=== PATIENT | male | born 1950 | race Caucasian/White ===

== ENCOUNTER 2017-04-19 12:58 | Emergency (ER) | payer MEDICARE ==
[2017-04-19 13:54] LABS: #Eosinphils 0.1 thou/uL (0.0-0.7); #Monocytes 0.8 thou/uL (0.11-0.59); #Neutrophils 11.8 thou/uL (1.40-6.50); %Basophils 0.3 % (0.0-1.0); %Eosinophils 0.4 % (0.0-10.0); %Lymphocytes 13.6 % (21.0-51.0); %Monocytes 5.2 % (0.0-10.0); %Neutrophils 80.5 % (42.0-75.0); Mean Corpuscular HGB CONC 33.2 g/dL (32.0-36.0); Mean Corpuscular Hemoglobin 30.1 pg (27.0-31.0); Mean Corpuscular Volume 90.8 fl (80.0-94.0); Mean Platelet Volume 5.8 fL (7.4-10.4); Platelet Count 467 thou/uL (130-400); RBC Distribution Width 12.5 % (11.5-14.5); Red Blood Cell (RBC) Count 3.98 mill/uL (4.70-6.10); White Blood Cell (WBC) Count 14.6 thou/uL (4.8-10.8)
[2017-04-19 14:19] LABS: ALT (SGPT) 28 U/L (8-55); AST (SGOT) 21 U/L (5-34); Albumin 3.9 g/dL (3.4-4.8); Alkaline Phosphatase 158 U/L (40-150); Anion Gap 14 mmol/L (10-20); BUN (Urea Nitrogen) 15 mg/dL (8.4-25.7); Bilirubin, Total 0.5 mg/dL (0.2-1.2); Calc. Creatinine Clearance 0 mL/min (70-130); Calcium 9.7 mg/dL (7.8-10.44); Carbon Dioxide 21 mmol/L (23-31); Chloride 101 mmol/L (98-107); Estimated GFR-MDRD Greater than 90; Globulin 3.7 g/dL (2.4-3.5); Glucose 142 mg/dL (80-115); Protein, Total 7.6 g/dL (5.8-8.1); Sodium 132 mmol/L (136-145)
[2017-04-19] MEDS ORDERED: Lidocaine 2% Jelly 5 ML TUBE ONE (15:26)
[2017-04-19] MEDS ORDERED: Bacitracin Zinc 1 Packet ONE (17:37)
[2017-04-19] MEDS ORDERED: Morphine 2 MG/ML SYRINGE ONE (18:29)
[2017-04-19] MEDS ORDERED: Ondansetron HCl/PF 4 MG/2 ML Vial ONE (18:29)
[2017-04-19 19:59] LABS: Bilirubin Large (Negative); Blood, Urine Large (Negative); Clarity CLOUDY (Clear); Glucose, Urine (Dipstick) Negative (Negative); Leukocyte Large (Negative); Nitrite Positive (Negative); Protein, Urine (Dipstick) 300 mg/dL (Neg-Trace); Specific Gravity, Urine 1.018 (1.002-1.036)
[2017-04-19 20:02] LABS: Bacteria/HPF None Seen HPF (None Seen); Hyaline Casts/LPF 0-3 HYALINE CAST LPF (0-3 Hyaline); RBC/HPF GREATER THAN 50-TNTC HPF (0-3); Squamous Epithelial None Seen HPF (0-3); WBC/HPF None Seen HPF (0-3)
--- NOTE | 2017-04-19 21:40 | CON ---
DATE OF CONSULTATION: 04/19/2017 HISTORY OF PRESENT ILLNESS: This is a 66-year-old white male who was asked to see by one of the ER isa salvador today because of the gross hematuria and inability to replace the catheter after the patien t had inadvertently pulled it out at home. I have got most of his history from his who is dixon gifford with him at the bedside. He was admitted at [facility]. Recently, he was falling at home quite frequently and I believe, he also may have had a urinary tract infection. He went fro m there to [facility], which I believe is a rehab facility and he was actually there until yesterday . 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 He was not draining, there is blood in it and blood around it. They called [facility] nurse who came in, took it out, and then he had a lot of blood come out of the penis af ter that and they sent him to the emergency room here. The emergency room nurses tried to place a Fo govind catheter, but were unsuccessful, so they asked me to come in to place the catheter. The patient has had some gross microscopic hematuria off and on for the last couple of months and he has actually been evaluated at the [facility] for this and it sounds like according to the that he may have had a CAT scan already done and he is supposed to be going to [place] tomorrow for an MRI, which I am not sure he will be able to go to because of his visit today and also because of the being his sole provider to drive and she has concerns about driving that far. It is unclear as to exactly why the MRI was going to be done or how far into the evaluation for blood in his urine, but he has vi sit set up in [place]. I have reviewed his records here, he has had numerous urine cultures that show ed no growth, 6 of them dating back to 11/2012. On the 3rd of this month that we did have an MRSA in the urine and I believe this was probably done through [facility], it was actually from the penis, so it was probably some urethritis related to the catheter being in and he has been on Bactrim for th at and still is. Today, his white count was mildly elevated at 14.6, his hemoglobin was 12, which is actually fine, looking back at his hemoglobins over the last 8 days, it was as low as 8.9, so 12 loo ks pretty good for him. His platelet count is normal. His creatinine is 0.62, which is stable over the last few days. His last urinalysis was done in the first of this month. I would assume, there w as a catheter in at that time showed greater than 50 red cells, 21-50 white cells, 1+ bacteria, and t hen he had another urinalysis done on 04/04/2017, I am not sure if he had a catheter at that time or not, but that showed 11-20 red cells, no bacteria, 4-6 white cells, and had urinalysis done on 2016 of this past year that was completely clear. The reports no history of prostate cancer or prostate surgery. He is not on any blood thinners apart from a baby aspirin and occasional Aleve. PAST MEDICAL HISTORY: Includes Parkinson's disease and he has developed incontinence, which is proba kayla somewhat related to Parkinson's disease as he is very slow to move around and has probably balanc e issues related to it. His exam is abdomen is obese, but nontender. The bladder is not grossly distended. He is not circum cised. There is no phimosis. There are no lesions. There is blood at the meatus. The testicles ar e descended without mass or tenderness. The rectal exam was not done, but there is no perineal or sc rotal hematoma. I went ahead and sterilely prepped and draped him with Betadine and placed 2% Xyloca ine jelly topically per urethra and passed a 20-Turkish coude tip catheter that went fairly easily int o the bladder. We then placed 15 mL in the balloon and hand irrigated with about a liter of sterile water and got him completely free of clots and completely clear. He is still oozing some blood aroun d the catheter and probably we will do this for a few days because of pulling the catheter out, the b alloon inflated, but looks like his urine is clear. I have recommended that we continue on his Bactr im because of the MRSA that was noted on the 1 has some more though still. We will need to leave thi s catheter in for a few days, it is unclear as to how long this catheter was meant to stay in and if there has been any evaluation further as to who will change it out with whether home health will work . I would hope that whatever doctors or urologists have been caring for him to make this disposition regarding him. I talked with the ER physician that has been seeing him indicating that from Urology standpoint, he was certainly would be safe to go home; however, he is 66-year-old, he does have Park inson's. He is unstable with his gait imbalance. He has been home only for a short period of time, less than 24 hours and already fallen twice at home, one time pulling his catheter out in the process , so the question comes up is whether or not he is actually safe to go home, so the emergency room ph ysician is going to make that decision and talked with the and they will decide whether he would be admitted or whether he would go back to [facility] or what would be the best disposition for him . If further urologic care is needed, I am happy to help provide that.
== END 2017-04-19 20:28 | disposition home or self-care (01) ==
LOC: ERS 12:58
DX: T83.098A Other mechanical complication of other urinary catheter, initial encounter (principal); R31.9 Hematuria, unspecified; E11.9 Type 2 diabetes mellitus without complications
CPT/HCPCS: 36415; 36416; 51702; 80053; 81003; 81015; 85025; 87086; 96374; 96375; J0696; J2270; J2405

== ENCOUNTER 2018-01-12 00:01 | Inpatient (IN) | payer MEDICARE ==
[2018-01-12 00:30] LABS: #Basophils 0.1 thou/uL (0.0-0.2); #Eosinphils 0.3 thou/uL (0.0-0.7); #Lymphocytes 1.7 thou/uL (1.20-3.40); #Monocytes 0.3 thou/uL (0.11-0.59); #Neutrophils 3.8 thou/uL (1.40-6.50); %Basophils 0.9 % (0.0-1.0); %Eosinophils 4.5 % (0.0-10.0); %Lymphocytes 28.2 % (21.0-51.0); %Monocytes 5.1 % (0.0-10.0); %Neutrophils 61.3 % (42.0-75.0); Hemoglobin 10.3 g/dL (14.0-18.0); Mean Corpuscular HGB CONC 34.4 g/dL (32.0-36.0); Mean Corpuscular Hemoglobin 31.3 pg (27.0-31.0); Mean Corpuscular Volume 90.9 fL (78.0-98.0); Mean Platelet Volume 6.5 fL (7.4-10.4); Platelet Count 177 thou/uL (130-400); RBC Distribution Width 12.3 % (11.5-14.5); Red Blood Cell (RBC) Count 3.31 mill/uL (4.70-6.10); White Blood Cell (WBC) Count 6.1 thou/uL (4.8-10.8)
[2018-01-12 00:36] LABS: INR-International Normal Ratio 1.1; Prothrombin Time 14.4 SEC (12.0-14.7)
[2018-01-12 00:43] LABS: ALT (SGPT) 10 U/L (8-55); AST (SGOT) 10 U/L (5-34); Albumin 3.2 g/dL (3.4-4.8); Alkaline Phosphatase 53 U/L (40-150); Anion Gap 9 mmol/L (10-20); BUN (Urea Nitrogen) 22 mg/dL (8.4-25.7); Bilirubin, Total 0.3 mg/dL (0.2-1.2); CK (CPK) 38 U/L (30-200); Calc. Creatinine Clearance 0 mL/min (70-130); Calcium 8.8 mg/dL (7.8-10.44); Carbon Dioxide 25 mmol/L (23-31); Chloride 107 mmol/L (98-107); Estimated GFR-MDRD Greater than 90; Globulin 2.1 g/dL (2.4-3.5); Glucose 125 mg/dL (80-115); Potassium 3.6 mmol/L (3.5-5.1); Protein, Total 5.3 g/dL (5.8-8.1); Sodium 137 mmol/L (136-145)
[2018-01-12 00:46] LABS: CKMB 0.8 ng/mL (0-6.6); Troponin I 0.043 ng/mL (< 0.028)
[2018-01-12 00:50] LABS: Acetaminophen Less than 6.0 mcg/mL (10.0-30.0); Alcohol Less than 10 mg/dL (Less than 10); Lipase 27 U/L (8-78); Salicylate Less than 8.0 mg/dL (15.0-30.0)
[2018-01-12 03:53] LABS: Troponin I 0.049 ng/mL (< 0.028)
[2018-01-12 03:56] LABS: Bilirubin Negative (Negative); Blood, Urine Negative (Negative); Clarity CLOUDY (Clear); Glucose, Urine (Dipstick) Negative (Negative); Leukocyte Negative (Negative); Nitrite Negative (Negative); Protein, Urine (Dipstick) Negative (Neg-Trace); Specific Gravity, Urine 1.023 (1.002-1.036); Urobilinogen 0.2 mg/dL (0.2-1.0)
[2018-01-12 04:14] LABS: Amphetamine Not Detected (NotDetected); Benzodiazepine Screen Not Detected (NotDetected); Cocaine Metabolite Screen Not Detected (NotDetected); Medtox Reader # READER 4; Methamphetamine Not Detected (NotDetected); Opiate Screen Not Detected (NotDetected); Phencyclidine (PCP) Not Detected (NotDetected); THC/Cannabinoid Screen Not Detected (NotDetected)
[2018-01-12 04:15] LABS: Barbiturates Screen Not Detected (NotDetected); Medtox Control Line Valid? VALID (VALID); Methadone Not Detected (NotDetected); Oxycodone Screen Not Detected (NotDetected); Tricyclic Screen Detected (NotDetected)
[2018-01-12 04:34] LABS: CKMB 1.1 ng/mL (0-6.6)
--- NOTE | 2018-01-12 08:47 | RAD ---
AP VIEW CHEST: HISTORY: Altered mental status. COMPARISON: Comparison is made to previous exam from 04/06/2017. FINDINGS: AP view chest demonstrates cardiomegaly seen. There is some blunting of the left costophrenic angle compatible with a tiny left-sided effusion or s carring. Pulmonary vascular congestion is seen. No acute intrathoracic disease is seen. Old healed fracture is seen in the right mid 7th rib. IMPRESSION: Pulmonary vascular congestion and cardiomegaly. No acute intrathoracic abnormality seen. POS: [facility]
--- NOTE | 2018-01-12 08:48 | CT ---
PRELIMINARY REPORT/[facility]/EMERGENTY AFTER-HOURS PROCEDURE CT Head Without Contrast EXAM DATE/TIME: 01/12/2018 12:34 AM CLINICAL HISTORY: 67 years old, male; Signs and symptoms; Altered mental status/memory loss; Age related cognitive decl ine; Patient HX: M67 reports to ed via ems for altered mental status. Ems reports patient presented w ith initial gcs 14 with slurred speech and left side facial droop. Ems reports intial BP was 78/40. Ems established a io and administered 2 l ns, pressure went to 110/65. Ems reports on arrival to ed patient began to having snoring respirations and gcs went to 9. Ems reports stated brandon saucedo is speaking fluently in full sentences. TECHNIQUE: Axial computed tomography images of the head/brain without contrast. COMPARISON: No relevant prior studies available. FINDINGS: Tubes, catheters and devices: Nasotracheal tube partially visualized. Brain: Scattered areas of hypoattenuation, likely chronic small vessel ischemic change, demyelination , or gliosis. No mass, hemorrhage, or acute infarction. Ventricles: Incidental note of cavum septa pellucida and cavum septum vergae. Bones/joints: Normal. Sinuses: Minimal ethmoid sinus disease. Mastoid air cells: Normal as visualized. Soft tissues: Normal. Vasculature: Atherosclerotic vascular calcifications. Atherosclerotic vascular calcifications. IMPRESSION: No acute intracranial abnormality. Thank you for allowing us to participate in the care of your patient. Dictated and Authenticated by: Daquan Zavala MD 01/12/2018 12:54 AM Central Time ([place] & [place]) FINAL REPORT HEAD CT WITHOUT CONTRAST: Date: 01/12/18 COMPARISON: 04/06/17. HISTORY: Altered mental status. FINDINGS: This report is in agreement with the preliminary report by Jonny. No acute intracranial process. Stabl e white matter hypodensities due to chronic small vessel ischemic change. Cavum septum pellucidum and cavum vergae are noted. POS: [facility]
[2018-01-12] MEDS ORDERED: Ondansetron ODT 4 MG TAB SL PRN (08:51)
[2018-01-12] MEDS ORDERED: Ondansetron PF 4 MG/2 ML Vial IVP PRN ×2 (08:51→10:04)
[2018-01-12] MEDS ORDERED: Acetaminophen 325 MG TAB PO PRN ×2 (08:51→10:04)
[2018-01-12] MEDS ORDERED: Sodium Chloride 0.9% 1,000 ML IV SCH (09:00)
--- NOTE | 2018-01-12 09:12 | CT ---
PRELIMINARY REPORT/[facility]/EMERGENTY AFTER-HOURS PROCEDURE CT Angiography Neck With Intravenous Contrast EXAM DATE/TIME: 01/12/2018 1:50 AM CLINICAL HISTORY: 67 years old, male; Signs and symptoms; Speech disturbance; Slurred speech; Patient HX: M67 reports t o ed via ems for altered mental status. Ems reports patient presented with initial gcs 14 with slurre d speech and left side facial droop. Ems reports intial BP was 78/40. Ems established a io and administered 2 l ns, pressure went to 110/65. Ems reports on arrival to ed patient began to having sn oring respirations and gcs went to 9. Ems reports stated baseline is speaking fluently in full s entences. TECHNIQUE: Axial computed tomographic angiography images of the neck with intravenous contrast using CT angiogra phy protocol. MIP reconstructed images were created and reviewed. COMPARISON: No relevant prior studies available. FINDINGS: VASCULATURE: Right common carotid artery: Normal. No significant stenosis. No dissection or occlusion. Right internal carotid artery: Mild atherosclerotic disease of the proximal right internal carotid ar jeremias, causing less than 50% luminal narrowing. Right external carotid artery: Normal. No occlusion or significant stenosis. Right vertebral artery: Normal. No significant stenosis. No dissection or occlusion. Left common carotid artery: Normal. No significant stenosis. No dissection or occlusion. Left internal carotid artery: Mild atherosclerotic disease of the proximal left internal carotid amelia ry, causing less than 50% luminal narrowing. Left external carotid artery: Normal. No occlusion or significant stenosis. Left vertebral artery: Mild atherosclerotic disease of the proximal and distal aspects of the left ve rtebral artery, causing less than 50% luminal narrowing. Subclavian arteries: Atherosclerotic disease of the proximal left subclavian artery, without signific ant luminal narrowing or occlusion. NECK: Trachea: Evidence of tracheobronchomalacia. Bones/joints: No acute fracture. Soft tissues: Normal. No significant soft tissue swelling. Lung apices: Scattered atelectasis and/or scarring within the visualized lung apices. IMPRESSION: No acute abnormality. COMMENT: Reference per NASCET criteria for degree of stenosis: Mild: <50% stenosis. Moderate: 50-69% stenosis. Severe: 70-94% stenosis. Near occlusion: 95-99% stenosis. Thank you for allowing us to participate in the care of your patient. Dictated and Authenticated by: Daquan Zavala MD 01/12/2018 2:33 AM Central Time ([place] & [place] Edu[place]) FINAL REPORT CT ANGIOGRAM OF THE HEAD CT ANGIOGRAM OF THE NECK: HISTORY: Speech disturbance. Slurred speech. COMPARISON: None. TECHNIQUE: CT angiogram of the head and neck are performed in the axial plane. Three-dimensional reformatted im ages are submitted for interpretation. FINDINGS: CT ANGIO HEAD: Bilateral ocular lenses are appropriately located. Both globes are intact. Retrobulbar fat is prese rved. Symmetric attenuation of the optic nerves and ocular rectus muscles. The aerodigestive tract is patent. No mucosal abnormality. Midline fatty raphae of the tongue is pr eserved. Epiglottis has a normal caliber. Preepiglottic fat is preserved. Symmetric attenuation of the soft tissues of the neck. There is no evidence of lymphadenopathy. Cervical spine vertebral body height is maintained. There is no fracture. There is symmetric enhancement and luminal diameter of the intracranial internal carotid arteries. T here is atherosclerosis involving both cavernous segments without high-grade stenosis or narrowing. ANTERIOR CIRCULATION: Both M1 segments have symmetric enhancement and luminal diameter. The left A1 segment is diminutive and likely representing a congenital variant. Both AP segments are patent and unremarkable. Posterior circulation demonstrates atherosclerosis involving the left vertebral artery, intracraniall y. There is no significant stenosis. The basilar artery is patent with appropriate enhancement in l uminal diameter. Both P1 segments and symmetric enhancement of luminal diameter. CT ANGIOGRAM OF THE NECK: This report is in agreement with the preliminary report by [facility]. There is no evidence of hemodynamica lly significant stenosis, based upon NASCET criteria. POS: [facility]
[2018-01-12] MEDS ORDERED: Sodium Chloride 0.65% Nasal 44 ML BOT EA NARE PRN (10:04)
[2018-01-12] MEDS ORDERED: Bisacodyl 5 MG TAB PO PRN (10:04)
[2018-01-12] MEDS ORDERED: Senokot S 8.6-50 MG TAB PO PRN (10:04)
[2018-01-12] MEDS ORDERED: Eucerin (Mineral Oil/Petrolatum,White) 30 gm Jar TOP PRN (10:04)
[2018-01-12] MEDS ORDERED: Cepastat Lozenges 1 LOZ PO PRN (10:04)
[2018-01-12] MEDS ORDERED: Artificial Tear Sol 15 ML BOT EA EYE PRN (10:04)
[2018-01-12] MEDS ORDERED: Bisacodyl 10 MG SUPP PR PRN (10:04)
[2018-01-12] MEDS ORDERED: hydrALAZINE 20 MG/ML VIAL SLOW IVP PRN (10:04)
[2018-01-12] MEDS ORDERED: Metoclopramide HCl 10 MG/2 ML VIAL IVP PRN (10:04)
[2018-01-12] MEDS ORDERED: Loratadine 10 MG TAB PO PRN (10:04)
[2018-01-12] MEDS ORDERED: Diabetic Tussin 200 MG/10 ML UDCUP PO PRN (10:04)
[2018-01-12] MEDS ORDERED: HYDROcodone/Acetaminophen 5/325 mg Tablet PO PRN (10:04)
[2018-01-12] MEDS ORDERED: Calcium Carbonate 500 MG ChewTAB PO PRN (10:04)
[2018-01-12] MEDS ORDERED: Loperamide HCl 2 MG CAP PO PRN (10:04)
[2018-01-12] MEDS ORDERED: Ondansetron ODT 4 MG TAB PO PRN (10:04)
[2018-01-12] MEDS ORDERED: Dextrose 5% in Water 1,000 ML IV PRN (10:05)
[2018-01-12] MEDS ORDERED: HumaLOG 300 UNITS/3 ML VIAL SC PRN ×2 (10:05)
[2018-01-12] MEDS ORDERED: Dextrose 50% Abboject 50 ML SYRINGE SLOW IVP PRN (10:05)
[2018-01-12] MEDS ORDERED: Famotidine 20 MG TAB PO SCH ×2 (10:30→21:00)
[2018-01-12] MEDS ORDERED: Aspirin 325 MG TAB PO SCH (10:30)
[2018-01-12] MEDS ORDERED: Enoxaparin Sodium 40 MG/0.4 ML SYRINGE SC SCH (10:30)
--- NOTE | 2018-01-12 11:14 | HP ---
PRIMARY CARE PHYSICIAN: Dr. Elizabeth Paul at [facility]. REASON FOR ADMISSION: Acute altered mental status, stroke-like symptoms, hypotension. HISTORY OF PRESENT ILLNESS: This is a 67-year-old male, who has underlying history of Parkinson disease and dementia. Yesterday around 7 or 8 p.m., the patient's was struggling to make him go to bed and the patient was not able to get to the bed. The patient's called neighbors and they were not able to successfully put him on bed and that is why the patient's called paramedics. At that time, paramedics noticed that his left side of facial was drooping. He was having slurred speech. Based on their assessment, initial Jan Coma Scale of 14, they suspected stroke. They monitored blood pressure and his blood pressure was 78/40. The patient was given 2 L fluid. IV access was obtained and his blood pressure improved to 110/65. As per paramedics, when they were bringing him here in the emergency room, at that time he was having snoring respiration. When he came to the ER, he was up to his baseline, but he appeared more confused to his . Per the patient's , the patient did not have any constipation, diarrhea, melena, or hematochezia. He did not have any fever, chills, or flu-like illness. He did not have any UTI symptoms. She did not notice complain of headache, chest pain , or palpitation. REVIEW OF SYSTEMS: All review of systems tried to review with the patient, but unable to review and not reliable because of the patient's history of Parkinson disease with dementia. PAST MEDICAL HISTORY: Parkinson disease; COPD; diabetes, type 2; hypertension; and dementia. PAST SURGICAL HISTORY: Cholecystectomy. PAST PSYCHIATRIC HISTORY: Posttraumatic stress disorder. SOCIAL HISTORY: The patient is . Lives at home. No history of tobacco, alcohol, or illicit drug abuse. Mostly, he remains in bed, but he is able to get out of bed by himself. He requires assistance with routine activity. FAMILY HISTORY: No family history of coronary artery disease, stroke, or cancer. ALLERGIES: NO KNOWN DRUG ALLERGIES. CURRENT HOME MEDICATIONS: The patient's did not bring any medication and she does not remember the name of medication, so unable to review at this point. We will call primary care physician's office to verify his home medication. PHYSICAL EXAMINATION: VITAL SIGNS: On arrival, blood pressure 101/65, pulse 74, respiratory rate 16, temperature 98.6, and saturation 97% on room air. Weight 100.9 kg. GENERAL: The patient is currently alert, awake, follows simple commands. No obvious acute distress. Appears slightly confused. HEENT: Head, normocephalic and atraumatic. Eyes; pupils round, reactive to light. Extraocular muscle intact. ENT, oropharynx within normal limits. Dry mucous membranes. No oral lesion. No pharyngeal erythema. No exudate. NECK: Supple. No JVD. No thyromegaly. No carotid bruit. No meningeal signs of irritation. LUNGS: Clear to auscultation without any rhonchi or rales. CARDIAC: S1 and S2 regular. No murmur. No gallop. No rub. ABDOMEN: Soft. Bowel sounds present. Nontender. Nondistended. No organomegaly. No mass. No suprapubic tenderness. BACK: Unremarkable. No CVA tenderness. EXTREMITIES: Upper extremities; passive movement of all joints are normal. Lower extremities; passive movement of all joints are normal. No calf tenderness. No edema. Good distal pulsation. SKIN: No skin rash. HEMATOLOGICAL SYSTEM: No lymphadenopathy. PSYCHIATRIC: Normal affect. NEUROLOGIC: At this point, the patient does not have any focal neurological deficit. He has mini-mental status point lower because of dementia, but his speech appears clear. He is moving all 4 limbs. His reflex is symmetrical. He does not have any cerebellar signs. Plantar bilateral flexor. LABORATORY DATA: Significant labs; CT head without contrast did not show any acute abnormality. CT angiography of the neck and head showed carotid atherosclerosis on the right internal carotid artery without any significant problem. CBC; WBC 6.1, hemoglobin 10.3, and platelets 177. INR 1.1. Sodium 137, potassium 3.6, chloride 107, carbon dioxide 25, BUN 22, creatinine 0.78, glucose 125, and calcium 8.8. Lactic acid 0.7. LFT; AST 10, ALT 10, alkaline phosphatase 53, albumin 3.2. CK 38, CK-MB 0.8, troponin 0.043 and 0.049, and then lipase 27. Lactic acid 0.7. Urinalysis normal. Urine drug screen positive for tricyclics. Serum drug screen negative. EKG showing normal sinus rhythm, slight prolonged QT interval. ASSESSMENT AND PLAN: Impression: 1. Altered mental status. The patient had hypotension at home and he was found with stroke-like symptoms by paramedics. Currently, he does not have any focal neurological deficit. His CT brain is negative, and his examination is up to his baseline other than cognitive deficit. He has right carotid atherosclerosis suspected for transient ischemic attack versus lacunar infarct. At this point, the patient does not have any focal neurological deficit. We will keep him in the stroke floor. We will obtain MRI of brain without contrast and echocardiography as a part of workup. We will check lipid profile. We will do neuro check and we will monitor on the stroke floor. PT and OT will be consulted. We will continue aspirin 325 mg p.o. daily. We will verify his home medication, and when blood pressure is appropriate at that point, we will consider starting antihypertensive medication. 2. Parkinson disease. Once we verify the patient's home medication, we will resume Parkinson medication. We will consider PT/OT while in hospital. 3. Hypotension, currently resolved. We will continue IV fluid 100 mL/h. We will hold on antihypertensive medication. We will review medication and adjust medication while in hospital. 4. Normocytic normochromic anemia. We will continue ferrous sulfate 325 mg p.o. daily, folic acid 1 mg p.o. daily, and vitamin B12 1000 mcg p.o. daily. 5. Diabetes, type 2. We will monitor Accu-Chek a.c. at bedtime and cover with insulin sliding scale as per protocol. 6. Dementia. The patient will need supportive care. 7. Deep vein thrombosis prophylaxis, Lovenox 40 mg subcu daily. 8. Gastrointestinal prophylaxis, Pepcid 20 mg p.o. b.i.d. 9. Code status. The patient is a full code. is the surrogate decision maker. 10. Elevated troponin. The patient does not have any chest pain. We will continue aspirin 325 mg p.o. daily. We will check lipid profile and get echocardiography and monitor on telemetry floor. DISPOSITION PLAN: Based on clinical course, plan of care discussed with the patient's at bedside in detail. Job ID: [id number] [facility]
[2018-01-12] MEDS: Sodium Chloride 0.9% 1,000 ML IV SCH ×2 (11:57→21:32)
[2018-01-12] MEDS ORDERED: Iopamidol 370 76% 100 ML VIAL ONE (13:27)
--- NOTE | 2018-01-12 17:46 | MRI ---
MRI OF BRAIN WITHOUT CONTRAST: 01/12/18 INDICATION: Generalized weakness, altered mental status. Reference made to head CT earlier same day. FINDINGS: There is enlargement of the ventricular system. No shift of midline. Patient motion is present degrad ing image quality. No acute territorial infarction. There is multifocal white matter signal abnormali ty indicating moderate to severe chronic ischemic disease of the cerebral white matter. There is pont ine gliosis. The skull base flow voids are not reliably assessed due to the degree of motion. Scatter ed paranasal sinus mucosal thickening is present. IMPRESSION: 1. No acute territorial infarction or mass effect. 2. Ventriculomegaly. 3. Moderate to severe chronic ischemic disease of the cerebral white matter and abdoulaye. POS: [facility]
[2018-01-12 18:52] VITALS: BMI 32.8
[2018-01-13 06:49] LABS: #Eosinphils 0.3 thou/uL (0.0-0.7); #Lymphocytes 1.2 thou/uL (1.20-3.40); #Monocytes 0.3 thou/uL (0.11-0.59); #Neutrophils 3.7 thou/uL (1.40-6.50); %Basophils 0.9 % (0.0-1.0); %Eosinophils 6.2 % (0.0-10.0); %Lymphocytes 21.3 % (21.0-51.0); %Monocytes 5.6 % (0.0-10.0); Hemoglobin 11.1 g/dL (14.0-18.0); Mean Corpuscular HGB CONC 33.9 g/dL (32.0-36.0); Mean Corpuscular Hemoglobin 30.8 pg (27.0-31.0); Mean Corpuscular Volume 90.7 fL (78.0-98.0); Mean Platelet Volume 6.6 fL (7.4-10.4); Platelet Count 178 thou/uL (130-400); RBC Distribution Width 12.1 % (11.5-14.5); Red Blood Cell (RBC) Count 3.62 mill/uL (4.70-6.10); White Blood Cell (WBC) Count 5.6 thou/uL (4.8-10.8)
[2018-01-13] MEDS ORDERED: Docusate 100 MG CAP PO PRN (07:07)
[2018-01-13] MEDS ORDERED: cloNIDine 0.1 MG TAB PO PRN (07:07)
[2018-01-13] MEDS ORDERED: Cyclobenzaprine 10 MG TAB PO PRN (07:07)
[2018-01-13] MEDS ORDERED: PROVENTIL INHALER 6.7 G (200 INHALATIONS) INH PRN (07:07)
[2018-01-13 07:13] LABS: ALT (SGPT) 10 U/L (8-55); AST (SGOT) 13 U/L (5-34); Albumin 3.6 g/dL (3.4-4.8); Alkaline Phosphatase 57 U/L (40-150); Anion Gap 9 mmol/L (10-20); BUN (Urea Nitrogen) 13 mg/dL (8.4-25.7); Bilirubin, Total 0.7 mg/dL (0.2-1.2); Calc. Creatinine Clearance 157 mL/min (70-130); Calcium 9.3 mg/dL (7.8-10.44); Carbon Dioxide 26 mmol/L (23-31); Cardiac Risk 3.6 (Less than 4.5); Chloride 107 mmol/L (98-107); Cholesterol 98 mg/dl (< 200 Desired); Estimated GFR-MDRD Greater than 90; Globulin 2.9 g/dL (2.4-3.5); Glucose 97 mg/dL (80-115); HDL Cholesterol 27 mg/dL (>60 Neg Risk); LDL Cholesterol, Calculated 52 mg/dL; Potassium 3.7 mmol/L (3.5-5.1); Protein, Total 6.5 g/dL (5.8-8.1); Sodium 138 mmol/L (136-145); Triglycerides 94 mg/dL (Less than 150)
[2018-01-13] MEDS ORDERED: Albuterol Sulfate 2.5 mg/3 ml Neb NEB PRN (07:45)
[2018-01-13] MEDS: hydrALAZINE 25 MG TAB PO SCH ×3 (08:51→20:33)
[2018-01-13] MEDS: Fish Oil 1,000 MG CAP PO SCH ×4 (08:51→20:33)
[2018-01-13] MEDS: Folic Acid 1 MG TAB PO SCH (08:51)
[2018-01-13] MEDS: Aspirin 325 MG TAB PO SCH (08:51)
[2018-01-13] MEDS: Carbidopa/Levodopa 25-100 mg Tablet PO SCH ×2 (08:52→20:34)
[2018-01-13] MEDS: FLUoxetine HCl 20 MG CAP PO SCH (08:52)
[2018-01-13] MEDS: Gabapentin 100 MG CAP PO SCH (08:52)
[2018-01-13] MEDS: Multivitamin W/ Minerals 1 TAB PO SCH (08:52)
[2018-01-13] MEDS: Metoprolol Tartrate 25 MG TAB PO SCH (08:53)
[2018-01-13] MEDS: Ferrous Sulfate 325 MG TAB PO SCH (08:54)
[2018-01-13] MEDS: Cyanocobalamin (Vitamin B-12) 1,000 MCG TAB PO SCH (08:54)
[2018-01-13] MEDS: Enoxaparin Sodium 40 MG/0.4 ML SYRINGE SC SCH (08:54)
[2018-01-13] MEDS ORDERED: Ergocalciferol 1.25 MG(50,000 UNITS) CAP PO SCH (09:00)
[2018-01-13] MEDS ORDERED: glipiZIDE 10 MG TAB PO SCH (09:00)
[2018-01-13] MEDS: Stress 600 With Zinc 1 TAB PO SCH (09:36)
[2018-01-13] MEDS: Lisinopril/Hydrochlorothiazide 20 mg/12.5 mg Tablet PO SCH (09:43)
--- NOTE | 2018-01-13 10:17 | PDOC.PN ---
- Subjective Encounter Start Date: 01/13/18 Encounter Start Time: 07:00 Patient seen and examined. No new complaints. No overnight events - Objective Resuscitation Status - Order Detail: 01/12/18 07:03 Resuscitation Status Routine Resuscitation Status: FULL: Full Resuscitation MAR Reviewed: Yes Vital Signs & Weight: Vital Signs (12 hours) Temp Pulse Resp BP BP Pulse Ox 01/13/18 09:43 100 172/82 H 01/13/18 08:51 100 172/82 H 01/13/18 08:49 172/82 H 01/13/18 07:33 98.8 F 71 16 194/105 H 92 L 01/13/18 03:36 98.9 F 75 16 155/85 H 93 L 01/12/18 23:53 98.9 F 73 18 159/84 H 92 L Weight Weight 228 lb 8 oz I&O: 01/12/18 01/13/18 01/14/18 06:59 06:59 06:59 Intake Total 250 Balance 250 Result Diagrams: 01/13/18 06:07 01/13/18 06:07 Additional Labs: Accuchecks 01/13/18 01/12/18 01/12/18 05:26 20:52 10:38 POC Glucose 109 115 H 109 Radiology Reviewed by me: Yes (MRI no acute cva) EKG Reviewed by me: Yes Phys Exam - Physical Examination Constitutional: NAD HEENT: PERRLA, moist MMs, sclera anicteric Neck: no JVD, supple Respiratory: no wheezing, no rales, no rhonchi Cardiovascular: RRR, no significant murmur, no rub Gastrointestinal: soft, non-tender, no distention, positive bowel sounds Musculoskeletal: no edema, pulses present Neurological: non-focal, normal sensation Lymphatic: no nodes Psychiatric: normal affect Skin: no rash, normal turgor Dx/Plan (1) Altered mental status Code(s): R41.82 - ALTERED MENTAL STATUS, UNSPECIFIED Status: Acute (2) Elevated troponin Code(s): R74.8 - ABNORMAL LEVELS OF OTHER SERUM ENZYMES Status: Acute (3) Hypotension Status: Acute (4) Anemia, normocytic normochromic Code(s): D64.9 - ANEMIA, UNSPECIFIED Status: Chronic (5) Dementia Code(s): F03.90 - UNSPECIFIED DEMENTIA WITHOUT BEHAVIORAL DISTURBANCE Status: Chronic (6) Obesity (BMI 30.0-34.9) Code(s): E66.9 - OBESITY, UNSPECIFIED Status: Chronic (7) Parkinson disease Code(s): G20 - PARKINSON'S DISEASE Status: Chronic - Plan cont current plan of care, PT/OT * medication reviewed as below * symptomatic treatment * echo pending result * neurology to see * home medication reconciled * start PT * adjust BP meds. Review of Systems - Review of Systems ENT: negative: Ear Pain, Ear Discharge, Nose Pain, Nose Discharge, Nose Congestion, Mouth Pain, Mouth Swelling, Throat Pain, Throat Swelling, Other Respiratory: negative: Cough, Dry, Shortness of Breath, Hemoptysis, SOB with Excertion, Pleuritic Pain, Sputum, Wheezing Cardiovascular: negative: chest pain, palpitations, orthopnea, paroxysmal nocturnal dyspnea, edema, light headedness, other Gastrointestinal: negative: Nausea, Vomiting, Abdominal Pain, Diarrhea, Constipation, Melena, Hematochezia, Other Genitourinary: negative: Dysuria, Frequency, Incontinence, Hematuria, Retention , Other Musculoskeletal: negative: Neck Pain, Shoulder Pain, Arm Pain, Back Pain, Hand Pain, Leg Pain, Foot Pain, Other Skin: negative: Rash, Lesions, Hermes, Bruising, Other - Medications/Allergies Allergies/Adverse Reactions: Allergies Allergy/AdvReac Type Severity Reaction Status Date / Time No Known Allergies Allergy Verified 01/12/18 20:18 Medications: Current Medications Acetaminophen (Tylenol) 650 mg PO Q4H PRN PRN Reason: Headache/Fever/Mild Pain (1-3) Hydrocodone Bitart/Acetaminophen ([place] 5/325) 1 tab PO Q4H PRN PRN Reason: Moderate Pain (4-6) Albuterol Sulfate (Ventolin) 2.5 mg NEB Q4H PRN PRN Reason: SOB &/or Wheezing Albuterol Sulfate (Proventil Hfa) 2 puff INH Q4H PRN PRN Reason: SOB &/or Wheezing Artificial Tears (Tears Renewed 15ml Bottle) 2 drop EA EYE PRN PRN PRN Reason: Dry Eyes Aspirin (Aspirin) 325 mg PO DAILY [facility] Last Admin: 01/13/18 08:51 Dose: 325 mg Atorvastatin Calcium (Lipitor) 40 mg PO HS [facility] Benztropine Mesylate (Cogentin) 1 mg PO HS [facility] Bisacodyl (Dulcolax) 10 mg PO DAILYPRN PRN PRN Reason: Constipation Bisacodyl (Dulcolax) 10 mg [place] DAILYPRN PRN PRN Reason: Constipation Calcium Carbonate (Tums) 1,000 mg PO Q4H PRN PRN Reason: Heartburn or Indigestion Carbidopa/Levodopa (Sinemet 25-100) 1 tab PO BID [facility] Last Admin: 01/13/18 08:52 Dose: 1 tab Clonidine (Catapres) 0.1 mg PO BIDPRN PRN PRN Reason: SBP Greater Than 180 Cyanocobalamin (Vitamin B-12) 1,000 mcg PO DAILY [facility] Last Admin: 01/13/18 08:54 Dose: 1,000 mcg Cyclobenzaprine HCl (Flexeril) 10 mg PO TIDPRN PRN PRN Reason: Muscle Spasm Dextrose/Water (Dextrose 50%) 25 gm SLOW IVP PRN PRN PRN Reason: Hypoglycemia Docusate Sodium (Colace) 100 mg PO BIDPRN PRN PRN Reason: Constipation Duloxetine HCl (Cymbalta) 20 mg PO DAILY [facility] Last Admin: 01/13/18 08:52 Dose: 20 mg Enoxaparin Sodium (Lovenox) 40 mg SC 0900 [facility] Last Admin: 01/13/18 08:54 Dose: 40 mg Ergocalciferol (Drisdol) 1.25 mg PO Q7DAYS [facility] Last Admin: 01/13/18 09:35 Dose: 1.25 mg Ferrous Sulfate (Feosol) 325 mg PO QAM[facility] Last Admin: 01/13/18 08:54 Dose: 325 mg Fish Oil (Fish Oil) 2,000 mg PO QID [facility] Last Admin: 01/13/18 08:51 Dose: 2,000 mg Fluoxetine HCl (Prozac) 60 mg PO DAILY [facility] Last Admin: 01/13/18 08:52 Dose: 60 mg Folic Acid (Folvite) 1 mg PO DAILY [facility] Last Admin: 01/13/18 08:51 Dose: 1 mg Gabapentin (Neurontin) 100 mg PO QAM [facility] Last Admin: 01/13/18 08:52 Dose: 100 mg Gabapentin (Neurontin) 200 mg PO HS [facility] Glipizide (Glucotrol) 5 mg PO DAILY [facility] Glucagon (Glucagon) 1 mg IM PRN PRN PRN Reason: Hypoglycemia Guaifenesin (Robitussin Sf) 200 mg PO Q4H PRN PRN Reason: Cough Lisinopril/HCTZ (Prinizide 20-12.5) 2 tab PO DAILY [facility] Last Admin: 01/13/18 09:43 Dose: 2 tab Hydralazine HCl (Apresoline) 10 mg SLOW IVP Q4H PRN PRN Reason: SBP > 180 and HR < 70 Hydralazine HCl (Apresoline) 25 mg PO TID [facility] Last Admin: 01/13/18 08:51 Dose: 25 mg Dextrose/Water (D5w) 1,000 mls @ 0 mls/hr IV .Q0M PRN PRN Reason: Hypoglycemia Insulin Human Lispro (Humalog) 0 units SC .MODERATE SLIDING SC PRN PRN Reason: Moderate Correctional Scale Insulin Human Lispro (Humalog) 0 units SC .BEDTIME SLIDING SC PRN PRN Reason: Bedtime Correctional Scale Iron/Minerals/Multivitamins (Theragran M) 1 tab PO DAILY [facility] Last Admin: 01/13/18 08:52 Dose: 1 tab Loperamide HCl (Imodium) 2 mg PO PRN PRN PRN Reason: Diarrhea/Loose Stools Loratadine (Claritin) 10 mg PO DAILYPRN PRN PRN Reason: Sinus Symptoms Metoclopramide HCl (Reglan) 5 mg IVP Q4H PRN PRN Reason: Nausea Metoprolol Tartrate (Lopressor) 12.5 mg PO DAILY [facility] Last Admin: 01/13/18 08:53 Dose: 12.5 mg Mineral Oil/White Petrolatum (Eucerin Cream) 0 gm TOP BIDPRN PRN PRN Reason: Dry Skin Multivitamins/Zinc (Stress 600 With Zinc) 1 tab PO DAILY [facility] Last Admin: 01/13/18 09:36 Dose: 1 tab Ondansetron HCl (Zofran Odt) 4 mg PO Q6H PRN PRN Reason: Nausea/Vomiting Ondansetron HCl (Zofran) 4 mg IVP Q6H PRN PRN Reason: Nausea/Vomiting Pantoprazole Sodium (Protonix) 40 mg PO DAILY [facility] Last Admin: 01/13/18 08:51 Dose: 40 mg Risperidone (Risperidone) 3 mg PO HS [facility] Senna/Docusate Sodium (Senokot S) 2 tab PO BID PRN PRN Reason: Constipation Sodium Chloride ([place] Nasal [place] 0.65%) 0 ml EA NARE QIDPRN PRN PRN Reason: Nasal Congestion Throat Lozenges (Cepastat Lozenges) 1 aurora PO Q2H PRN PRN Reason: Sore Throat Trazodone HCl (Desyrel) 50 mg PO [facility] Venlafaxine HCl (Effexor) 75 mg PO DAILY [facility] Last Admin: 01/13/18 09:35 Dose: 75 mg
[2018-01-13] MEDS: glipiZIDE 10 MG TAB PO SCH (10:41)
[2018-01-13] MEDS ORDERED: Nystatin Cream 15 GM TUBE TOP PRN (16:00)
[2018-01-13] MEDS ORDERED: traZODone HCl 50 MG TAB PO SCH (21:00)
[2018-01-13] MEDS ORDERED: risperiDONE 3 MG TAB PO SCH (21:00)
[2018-01-13] MEDS ORDERED: Benztropine 1 MG TAB PO SCH (21:00)
[2018-01-13] MEDS ORDERED: Atorvastatin Calcium 40 MG TAB PO SCH (21:00)
[2018-01-13] MEDS ORDERED: Gabapentin 100 MG CAP PO SCH (21:00)
[2018-01-14 08:21] VITALS: TEMP 97.9
[2018-01-14] MEDS: hydrALAZINE 25 MG TAB PO SCH (09:08)
[2018-01-14] MEDS: Enoxaparin Sodium 40 MG/0.4 ML SYRINGE SC SCH (09:08)
[2018-01-14] MEDS: Multivitamin W/ Minerals 1 TAB PO SCH (09:09)
[2018-01-14] MEDS: Fish Oil 1,000 MG CAP PO SCH ×2 (09:10→13:24)
[2018-01-14] MEDS: Ferrous Sulfate 325 MG TAB PO SCH (09:10)
[2018-01-14] MEDS: Aspirin 325 MG TAB PO SCH (09:10)
[2018-01-14] MEDS: Stress 600 With Zinc 1 TAB PO SCH (09:10)
[2018-01-14] MEDS: FLUoxetine HCl 20 MG CAP PO SCH (09:10)
[2018-01-14] MEDS: glipiZIDE 10 MG TAB PO SCH (09:11)
[2018-01-14] MEDS: Cyanocobalamin (Vitamin B-12) 1,000 MCG TAB PO SCH (09:11)
[2018-01-14] MEDS: Folic Acid 1 MG TAB PO SCH (09:11)
[2018-01-14] MEDS: Carbidopa/Levodopa 25-100 mg Tablet PO SCH (09:11)
[2018-01-14] MEDS: Metoprolol Tartrate 25 MG TAB PO SCH (09:12)
[2018-01-14] MEDS: Gabapentin 100 MG CAP PO SCH (09:12)
--- NOTE | 2018-01-14 09:27 | PDOC.PN ---
- Subjective Encounter Start Date: 01/14/18 Encounter Start Time: 09:15 Patient seen and examined. No new complaints. No overnight events - Objective Resuscitation Status - Order Detail: 01/12/18 07:03 Resuscitation Status Routine Resuscitation Status: FULL: Full Resuscitation MAR Reviewed: Yes Vital Signs & Weight: Vital Signs (12 hours) Temp Pulse Resp BP Pulse Ox 01/14/18 09:08 60 01/14/18 08:00 97.9 F 60 16 131/73 98 01/14/18 03:40 98.4 F 84 18 132/77 97 01/14/18 00:00 97.7 F 89 18 132/85 93 L Weight Weight 228 lb 8 oz I&O: 01/13/18 01/14/18 01/15/18 06:59 06:59 06:59 Intake Total 250 250 Balance 250 250 Result Diagrams: 01/13/18 06:07 01/13/18 06:07 Additional Labs: Accuchecks 01/14/18 01/13/18 01/13/18 06:03 20:53 16:25 POC Glucose 126 H 132 H 97 01/13/18 10:38 POC Glucose 102 EKG Reviewed by me: Yes Phys Exam - Physical Examination Constitutional: NAD HEENT: PERRLA, moist MMs, sclera anicteric Neck: no JVD, supple Respiratory: no wheezing, no rales, no rhonchi Cardiovascular: RRR, no significant murmur, no rub Gastrointestinal: soft, non-tender, no distention, positive bowel sounds Musculoskeletal: no edema, pulses present Neurological: non-focal, normal sensation Lymphatic: no nodes Psychiatric: normal affect Skin: no rash, normal turgor Dx/Plan (1) Altered mental status Code(s): R41.82 - ALTERED MENTAL STATUS, UNSPECIFIED Status: Resolved (2) Elevated troponin Code(s): R74.8 - ABNORMAL LEVELS OF OTHER SERUM ENZYMES Status: Acute (3) Hypotension Status: Acute (4) Anemia, normocytic normochromic Code(s): D64.9 - ANEMIA, UNSPECIFIED Status: Chronic (5) Dementia Code(s): F03.90 - UNSPECIFIED DEMENTIA WITHOUT BEHAVIORAL DISTURBANCE Status: Chronic (6) Obesity (BMI 30.0-34.9) Code(s): E66.9 - OBESITY, UNSPECIFIED Status: Chronic (7) Parkinson disease Code(s): G20 - PARKINSON'S DISEASE Status: Chronic - Plan cont current plan of care, plan discussed w/ family * medication reviewed as below * symptomatic treatment * see my discharge vikymargie. Review of Systems - Review of Systems ENT: negative: Ear Pain, Ear Discharge, Nose Pain, Nose Discharge, Nose Congestion, Mouth Pain, Mouth Swelling, Throat Pain, Throat Swelling, Other Respiratory: negative: Cough, Dry, Shortness of Breath, Hemoptysis, SOB with Excertion, Pleuritic Pain, Sputum, Wheezing Cardiovascular: negative: chest pain, palpitations, orthopnea, paroxysmal nocturnal dyspnea, edema, light headedness, other Gastrointestinal: negative: Nausea, Vomiting, Abdominal Pain, Diarrhea, Constipation, Melena, Hematochezia, Other Genitourinary: negative: Dysuria, Frequency, Incontinence, Hematuria, Retention , Other Musculoskeletal: negative: Neck Pain, Shoulder Pain, Arm Pain, Back Pain, Hand Pain, Leg Pain, Foot Pain, Other - Medications/Allergies Allergies/Adverse Reactions: Allergies Allergy/AdvReac Type Severity Reaction Status Date / Time No Known Allergies Allergy Verified 01/12/18 20:18 Medications: Current Medications Acetaminophen (Tylenol) 650 mg PO Q4H PRN PRN Reason: Headache/Fever/Mild Pain (1-3) Hydrocodone Bitart/Acetaminophen ([place] 5/325) 1 tab PO Q4H PRN PRN Reason: Moderate Pain (4-6) Albuterol Sulfate (Ventolin) 2.5 mg NEB Q4H PRN PRN Reason: SOB &/or Wheezing Albuterol Sulfate (Proventil Hfa) 2 puff INH Q4H PRN PRN Reason: SOB &/or Wheezing Artificial Tears (Tears Renewed 15ml Bottle) 2 drop EA EYE PRN PRN PRN Reason: Dry Eyes Aspirin (Aspirin) 325 mg PO DAILY [facility] Last Admin: 01/14/18 09:10 Dose: 325 mg Atorvastatin Calcium (Lipitor) 40 mg PO HS [facility] Last Admin: 01/13/18 20:34 Dose: 40 mg Benztropine Mesylate (Cogentin) 1 mg PO HS [facility] Last Admin: 01/13/18 20:35 Dose: 1 mg Bisacodyl (Dulcolax) 10 mg PO DAILYPRN PRN PRN Reason: Constipation Bisacodyl (Dulcolax) 10 mg [place] DAILYPRN PRN PRN Reason: Constipation Calcium Carbonate (Tums) 1,000 mg PO Q4H PRN PRN Reason: Heartburn or Indigestion Carbidopa/Levodopa (Sinemet 25-100) 1 tab PO BID [facility] Last Admin: 01/14/18 09:11 Dose: 1 tab Clonidine (Catapres) 0.1 mg PO BIDPRN PRN PRN Reason: SBP Greater Than 180 Cyanocobalamin (Vitamin B-12) 1,000 mcg PO DAILY [facility] Last Admin: 01/14/18 09:11 Dose: 1,000 mcg Cyclobenzaprine HCl (Flexeril) 10 mg PO TIDPRN PRN PRN Reason: Muscle Spasm Dextrose/Water (Dextrose 50%) 25 gm SLOW IVP PRN PRN PRN Reason: Hypoglycemia Docusate Sodium (Colace) 100 mg PO BIDPRN PRN PRN Reason: Constipation Duloxetine HCl (Cymbalta) 20 mg PO DAILY [facility] Last Admin: 01/14/18 09:11 Dose: 20 mg Enoxaparin Sodium (Lovenox) 40 mg SC 0900 [facility] Last Admin: 01/14/18 09:08 Dose: 40 mg Ergocalciferol (Drisdol) 1.25 mg PO Q7DAYS [facility] Last Admin: 01/13/18 09:35 Dose: 1.25 mg Ferrous Sulfate (Feosol) 325 mg PO QAM[facility] Last Admin: 01/14/18 09:10 Dose: 325 mg Fish Oil (Fish Oil) 2,000 mg PO QID [facility] Last Admin: 01/14/18 09:10 Dose: 2,000 mg Fluoxetine HCl (Prozac) 60 mg PO DAILY [facility] Last Admin: 01/14/18 09:10 Dose: 60 mg Folic Acid (Folvite) 1 mg PO DAILY [facility] Last Admin: 01/14/18 09:11 Dose: 1 mg Gabapentin (Neurontin) 100 mg PO QAM [facility] Last Admin: 01/14/18 09:12 Dose: 100 mg Gabapentin (Neurontin) 200 mg PO HS [facility] Last Admin: 01/13/18 20:34 Dose: 200 mg Glipizide (Glucotrol) 5 mg PO DAILY [facility] Last Admin: 01/14/18 09:11 Dose: 5 mg Glucagon (Glucagon) 1 mg IM PRN PRN PRN Reason: Hypoglycemia Guaifenesin (Robitussin Sf) 200 mg PO Q4H PRN PRN Reason: Cough Lisinopril/HCTZ (Prinizide 20-12.5) 1 tab PO DAILY [facility] Hydralazine HCl (Apresoline) 10 mg SLOW IVP Q4H PRN PRN Reason: SBP > 180 and HR < 70 Dextrose/Water (D5w) 1,000 mls @ 0 mls/hr IV .Q0M PRN PRN Reason: Hypoglycemia Insulin Human Lispro (Humalog) 0 units SC .MODERATE SLIDING SC PRN PRN Reason: Moderate Correctional Scale Insulin Human Lispro (Humalog) 0 units SC .BEDTIME SLIDING SC PRN PRN Reason: Bedtime Correctional Scale Iron/Minerals/Multivitamins (Theragran M) 1 tab PO DAILY [facility] Last Admin: 01/14/18 09:09 Dose: 1 tab Loperamide HCl (Imodium) 2 mg PO PRN PRN PRN Reason: Diarrhea/Loose Stools Loratadine (Claritin) 10 mg PO DAILYPRN PRN PRN Reason: Sinus Symptoms Metoclopramide HCl (Reglan) 5 mg IVP Q4H PRN PRN Reason: Nausea Metoprolol Tartrate (Lopressor) 12.5 mg PO DAILY [facility] Last Admin: 01/14/18 09:12 Dose: 12.5 mg Mineral Oil/White Petrolatum (Eucerin Cream) 0 gm TOP BIDPRN PRN PRN Reason: Dry Skin Multivitamins/Zinc (Stress 600 With Zinc) 1 tab PO DAILY [facility] Last Admin: 01/14/18 09:10 Dose: 1 tab Nystatin (Mycostatin Cream) 0 gm TOP BIDPRN PRN PRN Reason: TO FACE Ondansetron HCl (Zofran Odt) 4 mg PO Q6H PRN PRN Reason: Nausea/Vomiting Ondansetron HCl (Zofran) 4 mg IVP Q6H PRN PRN Reason: Nausea/Vomiting Pantoprazole Sodium (Protonix) 40 mg PO DAILY [facility] Last Admin: 01/14/18 09:12 Dose: 40 mg Risperidone (Risperidone) 3 mg PO HS [facility] Last Admin: 01/13/18 20:35 Dose: 3 mg Senna/Docusate Sodium (Senokot S) 2 tab PO BID PRN PRN Reason: Constipation Sodium Chloride ([place] Nasal [place] 0.65%) 0 ml EA NARE QIDPRN PRN PRN Reason: Nasal Congestion Throat Lozenges (Cepastat Lozenges) 1 aurora PO Q2H PRN PRN Reason: Sore Throat Trazodone HCl (Desyrel) 50 mg PO [facility] Last Admin: 01/13/18 20:34 Dose: 50 mg Venlafaxine HCl (Effexor) 75 mg PO DAILY [facility] Last Admin: 01/14/18 09:09 Dose: 75 mg
[2018-01-14] MEDS ORDERED: Lisinopril/Hydrochlorothiazide 20 mg/12.5 mg Tablet PO SCH (09:30)
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
[2018-01-14] MEDS: Lisinopril/Hydrochlorothiazide 20 mg/12.5 mg Tablet PO SCH (10:33)
[2018-01-14 11:54] VITALS: BP 121/71
[2018-01-15] MEDS ORDERED: Lisinopril/Hydrochlorothiazide 20 mg/12.5 mg Tablet PO SCH (09:00)
== END 2018-01-14 13:40 | disposition home health service (06) | DRG 948 ==
LOC: ERS 00:01 → 2SE 03:19
PROVIDERS: ADMIT Hospitalist; ATTEND Hospitalist
DX: R41.82 Altered mental status, unspecified (principal); I24.8 Other forms of acute ischemic heart disease; I95.1 Orthostatic hypotension; G20 Parkinson's disease; F02.80 Dementia in other diseases classified elsewhere, unspecified severity, without behavioral disturbance, psychotic disturbance, mood disturbance, and anxiety; E66.9 Obesity, unspecified; Z68.32 Body mass index [BMI] 32.0-32.9, adult; J44.9 Chronic obstructive pulmonary disease, unspecified; I10 Essential (primary) hypertension; D64.9 Anemia, unspecified; E11.9 Type 2 diabetes mellitus without complications
CPT/HCPCS: 36415; 36416; 70450; 70496; 70498; 70551; 71045; 80053; 80061; 80306; 80307; 81003; 82550; 82553; 83605; 83690; 84484; 85025; 85610; 85730; 87040; 87086; 93005; 93306; G8978-GP-CK; G8979-GP-CI; G8987-GO-CK; G8988-GO-CJ; J1650

== ENCOUNTER 2018-01-16 06:18 | Observation (INO) | payer MEDICARE ==
[2018-01-16] MEDS ORDERED: Azithromycin 500 MG VIAL ONE ×2 (06:52→07:04)
[2018-01-16] MEDS ORDERED: cefTRIAXone\\ROCEPHIN 2 GM VIAL ONE (06:52)
[2018-01-16 07:30] LABS: #Eosinphils 0.2 thou/uL (0.0-0.7); #Lymphocytes 1.5 thou/uL (1.20-3.40); #Monocytes 0.6 thou/uL (0.11-0.59); #Neutrophils 6.6 thou/uL (1.40-6.50); %Basophils 0.5 % (0.0-1.0); %Eosinophils 2.1 % (0.0-10.0); %Lymphocytes 16.8 % (21.0-51.0); %Monocytes 6.3 % (0.0-10.0); %Neutrophils 74.3 % (42.0-75.0); Hemoglobin 13.2 g/dL (14.0-18.0); Mean Corpuscular HGB CONC 31.3 g/dL (32.0-36.0); Mean Corpuscular Hemoglobin 28.7 pg (27.0-31.0); Mean Corpuscular Volume 91.8 fL (78.0-98.0); Mean Platelet Volume 6.9 fL (7.4-10.4); Platelet Count 222 thou/uL (130-400); RBC Distribution Width 12.3 % (11.5-14.5); White Blood Cell (WBC) Count 8.9 thou/uL (4.8-10.8)
[2018-01-16 07:44] LABS: ALT (SGPT) 17 U/L (8-55); AST (SGOT) 20 U/L (5-34); Albumin 4.4 g/dL (3.4-4.8); Alkaline Phosphatase 65 U/L (40-150); Anion Gap 14 mmol/L (10-20); BUN (Urea Nitrogen) 16 mg/dL (8.4-25.7); Bilirubin, Total 0.5 mg/dL (0.2-1.2); Calc. Creatinine Clearance 0 mL/min (70-130); Calcium 10.3 mg/dL (7.8-10.44); Carbon Dioxide 24 mmol/L (23-31); Chloride 105 mmol/L (98-107); Estimated GFR-MDRD Greater than 90; Globulin 3.5 g/dL (2.4-3.5); Glucose 122 mg/dL (80-115); Potassium 3.8 mmol/L (3.5-5.1); Protein, Total 7.9 g/dL (5.8-8.1); Sodium 139 mmol/L (136-145)
[2018-01-16] MEDS ORDERED: Aspirin 325 MG TAB ONE (08:03)
[2018-01-16 08:07] LABS: CKMB 2.6 ng/mL (0-6.6)
--- NOTE | 2018-01-16 08:12 | CT ---
CT OF THE BRAIN WITHOUT CONTRAST: Date: 01/16/18 COMPARISON: 01/12/18. HISTORY: Fall this morning. Low back pain and head trauma. History of falls and altered mental status. TECHNIQUE: Multiple contiguous axial images were obtained in a CT of the brain without contrast. FINDINGS: This exam is limited secondary to motion artifact. There are scattered hypodensities in the subcortic al and periventricular white matter, likely secondary to small vessel ischemic disease. No large conf luent infarction is seen. There is no evidence of hydrocephalus, intracranial hemorrhage, or extra-ax ial fluid collection. The calvarium and overlying soft tissues are unremarkable. The visualized paranasal sinuses and masto id air cells are well aerated. IMPRESSION: 1. No evidence of acute intracranial abnormality. 2. Small vessel ischemic disease. POS: [facility]
[2018-01-16 09:03] LABS: Bilirubin Negative (Negative); Blood, Urine Negative (Negative); Clarity CLEAR (Clear); Glucose, Urine (Dipstick) Negative (Negative); Leukocyte Negative (Negative); Nitrite Negative (Negative); Protein, Urine (Dipstick) Negative (Neg-Trace); Specific Gravity, Urine 1.017 (1.002-1.036); Urobilinogen 0.2 mg/dL (0.2-1.0); pH, Urine 6.5 (5.0-9.0)
--- NOTE | 2018-01-16 09:40 | RAD ---
RADIOGRAPH LUMBAR SPINE 2 VIEWS: Date: 01/16/18 Time: 0731 hours HISTORY: Low back pain after fall. COMPARISON: 04/03/17. FINDINGS: There are five lumbar-type vertebrae. The previously seen compression fracture of L1 has undergone fu rther severe collapse, with bony retropulsion. There has been interval placement of vertebroplasty ce ment within it. There has been interval development of mild anterior wedge compression fracture deformity of T12, wit h maximum of approximately 40-75% loss of height anteriorly. Together, these two fractures result in gibbus angulation. The rest of the lumbar vertebral body heights are maintained. There is diffuse ost eopenia. IMPRESSION: 1. Interval development of compression fracture of T12, of indeterminate age. It occurred some time after the previous radiograph of 04/03/17. 2. Interval severe further collapse of burst fracture of L1, and interval vertebroplasty treatment o f it, since 04/03/17. 3. The best modality to distinguish old fractures from acute/subacute ones would be noncontrast MRI of the thoracolumbar junction. GINA [] POS: [facility]
[2018-01-16 13:21] LABS: CKMB 2.1 ng/mL (0-6.6)
[2018-01-16] MEDS ORDERED: Bisacodyl 5 MG TAB PO PRN (13:30)
[2018-01-16] MEDS ORDERED: Acetaminophen 325 MG TAB PO PRN (13:30)
[2018-01-16] MEDS ORDERED: cloNIDine 0.1 MG TAB PO PRN (15:59)
[2018-01-16 16:01] VITALS: BMI 31.5
[2018-01-16] MEDS ORDERED: HumaLOG 300 UNITS/3 ML VIAL SC PRN (16:38)
[2018-01-16] MEDS ORDERED: Dextrose 50% Abboject 50 ML SYRINGE SLOW IVP PRN (16:38)
[2018-01-16] MEDS ORDERED: Dextrose 5% in Water 1,000 ML IV PRN (16:38)
[2018-01-16 16:53] LABS: Actual Bicarbonate (HCO3a) 25.4 mEq/L (22-28); Base Excess (BEa) 0.3 mEq/L (-2.0 to +3.0); Calcium, Ionized 1.21 mmol/L (1.12-1.30); Carboxyhemoglobin (COHb) 2.3 gm% (0.0-3.0); Hemoglobin (Hb) 11.3 g/dL (14.0-18.0); O2 Tension (PaO2) 67.4 mmHg (> 80.0); Potassium - ABG Lab 3.51 mmol/L (3.70-5.30); Puncture Site LRA; pH, Arterial 7.39 (7.35-7.45)
[2018-01-16 17:23] LABS: Troponin I 0.051 ng/mL (< 0.028)
[2018-01-16] MEDS: Carbidopa/Levodopa 25-100 mg Tablet PO SCH (20:59)
[2018-01-16] MEDS ORDERED: risperiDONE 3 MG TAB PO SCH (21:00)
[2018-01-16] MEDS ORDERED: Benztropine 1 MG TAB PO SCH (21:00)
[2018-01-16] MEDS ORDERED: Atorvastatin Calcium 40 MG TAB PO SCH (21:00)
--- NOTE | 2018-01-16 23:51 | HP ---
CHIEF COMPLAINT: Fall. HISTORY OF PRESENT ILLNESS: The patient is a 67-year-old male, who recently was discharged from the hospital on 01/14 after a possible diagnosis of TIA or stroke. In his last admission, the patient initially was found to be hypotensive and had some altered mental status, and was brought into the hospital for possible TIA or stroke. He underwent a CT brain on last admission with CTA, no acute abnormalities were noted. 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 The patient was discharged home. I am not exactly clear why the patient was discharged home instead of some rehabilitation, and I do not have any family member around to ask further questions, I have left a message. The patient is unable to provide me any history, given his history of dementia. However, the patient presented to the hospital after multiple falls. Per ER physician, the patient has been falling; however, he felt his last fall was Monday night. The patient normally uses a walker. The patient currently is drowsy, easily arousable; however, unable to provide me any history and there is no family member around. PAST MEDICAL HISTORY: He has a history of Parkinson disease, COPD, diabetes type 2, hypertension, dementia, and emphysema. SOCIAL HISTORY: The patient lives with his . No history of tobacco, alcohol, or illicit drug use. Apparently, he walks with a walker. I am unable to confirm code status in this patient. Again, there is no family member around. REVIEW OF SYSTEMS: Unable to obtain. PAST SURGICAL HISTORY: He has had a cholecystectomy. FAMILY HISTORY: Unable to obtain from the patient, and no family member around. ALLERGIES: HE HAS NO KNOWN DRUG ALLERGIES. MEDICATIONS: This is all received from the list, which includes the followin. Clonidine 0.1 mg b.i.d. 2. Atorvastatin 40 mg at bedtime. 3. Gabapentin 100 mg q.a.m. 4. Fluoxetine 60 mg daily. 5. daily. 6. Lisinopril/hydrochlorothiazide 20/25 one p.o. daily. 7. Metoprolol 12.5 mg daily. 8. Venlafaxine 75 mg daily. 9. Aspirin 81 mg daily. 10. Carbidopa/levodopa 25/100 one p.o. b.i.d. 11. Cogentin 1 mg p.o. at bedtime. 12. Cymbalta 20 mg daily. 13. Protonix 20 mg daily. 14. Risperidone 1.5 mg p.o. at bedtime. PHYSICAL EXAMINATION: VITAL SIGNS: As of the following; the patient is afebrile at 98.2, heart rate is 86, respiratory rate 16, 96% on room air, and blood pressure 177/90. GENERAL: He appears drowsy, easily arousable. Follows commands. CV: S1 and S2 present. No murmurs, rubs, or gallops. LUNGS: Clear to auscultation. No rhonchi or wheezes noted. ABDOMEN: Soft and nontender. Bowel sounds present x2. EXTREMITIES: He has no edema. NEUROLOGIC: He is able to move all 4 extremities. Again, he follows instructions; however, the instruction following is very limited. I am not sure of the patient's baseline. SKIN: No cuts, lesions, or bruises noted. PSYCHIATRIC: Mood is stable right now. The patient is drowsy, but easily arousable. HEENT: The patient appears to be very dehydrated. LABORATORY RESULTS: As of the following; WBC of 8.9, hemoglobin of 13.2, hematocrit of 42.3, platelets of 222. Chemistry; sodium of 139, potassium of 3.8, BUN of 16, creatinine of 0.81, glucose of 122. Troponin was 0.061 and then 0.049. His urine was completely normal. He did not have a chest x-ray, he did have a lumbar spine due to the fall, which indicated that he does have a new T12 compression fracture, and he has an old L1 burst fracture that he underwent a vertebroplasty. ASSESSMENT AND PLAN: The patient is a very pleasant 67-year-old male, who presents to the hospital after a fall. 1. Deconditioning, generalized weakness. At this time, I have to talk with the patient's family member to kind of see why he did not go to rehab during his last visit. We will also check a vitamin B12 and a TSH to make sure that there are no metabolic processes that are causing him to have these fall. We will order physical therapy on this patient. I think he would benefit from inpatient rehab if he is able to follow commands or else, I believe a dementia unit would be more appropriate for this patient. He is on certain medications that could worsen and cause lower extremity weakness, especially Cogentin, which can cause significant weakness in particular musculatures. We will check his medications to see if there are any other offenders that would worsen the patient's symptoms. The patient recently had an MRI of brain. I do not think I need to repeat it. I will speak with the patient's to get a better history to see if there was any other reason that she brought him into the hospital or it was just because of his frequent falls. 2. Hypertension. We will continue his medications. 3. History of diabetes. We will put the patient on sliding scale insulin. 4. Deep venous thrombosis prophylaxis. We will put the patient on subcu heparin. Job ID: [id number]
[2018-01-17 05:34] LABS: Anion Gap 12 mmol/L (10-20); BUN (Urea Nitrogen) 16 mg/dL (8.4-25.7); Calc. Creatinine Clearance 136 mL/min (70-130); Calcium 9.4 mg/dL (7.8-10.44); Carbon Dioxide 26 mmol/L (23-31); Chloride 105 mmol/L (98-107); Estimated GFR-MDRD Greater than 90; Glucose 133 mg/dL (80-115); Potassium 3.4 mmol/L (3.5-5.1); Sodium 140 mmol/L (136-145)
[2018-01-17 05:38] LABS: #Eosinphils 0.3 thou/uL (0.0-0.7); #Monocytes 0.4 thou/uL (0.11-0.59); #Neutrophils 4.6 thou/uL (1.40-6.50); %Basophils 0.5 % (0.0-1.0); %Lymphocytes 16.1 % (21.0-51.0); %Monocytes 6.5 % (0.0-10.0); %Neutrophils 72.9 % (42.0-75.0); Hemoglobin 10.6 g/dL (14.0-18.0); Mean Corpuscular HGB CONC 33.7 g/dL (32.0-36.0); Mean Corpuscular Hemoglobin 30.9 pg (27.0-31.0); Mean Corpuscular Volume 91.6 fL (78.0-98.0); Mean Platelet Volume 6.7 fL (7.4-10.4); Platelet Count 182 thou/uL (130-400); RBC Distribution Width 12.2 % (11.5-14.5); Red Blood Cell (RBC) Count 3.42 mill/uL (4.70-6.10); White Blood Cell (WBC) Count 6.3 thou/uL (4.8-10.8)
[2018-01-17] MEDS ORDERED: Lisinopril/Hydrochlorothiazide 20 mg/12.5 mg Tablet PO SCH (09:00)
[2018-01-17] MEDS ORDERED: FLUoxetine HCl 20 MG CAP PO SCH (09:00)
[2018-01-17] MEDS ORDERED: Gabapentin 100 MG CAP PO SCH (09:00)
[2018-01-17] MEDS ORDERED: Enoxaparin Sodium 40 MG/0.4 ML SYRINGE SC SCH (09:00)
[2018-01-17] MEDS: Carbidopa/Levodopa 25-100 mg Tablet PO SCH (10:01)
[2018-01-17] MEDS ORDERED: Docusate 100 MG CAP PO PRN (12:56)
--- NOTE | 2018-01-17 14:06 | PDOC.PN ---
- Subjective Encounter Start Date: 01/17/18 Encounter Start Time: 09:45 Subjective: pt up in bed on cpap - Objective Resuscitation Status - Order Detail: 01/16/18 13:30 Resuscitation Status Routine Resuscitation Status: FULL: Full Resuscitation Vital Signs & Weight: Vital Signs (12 hours) Temp Pulse Resp BP Pulse Ox 01/17/18 04:00 97.2 F L 93 20 147/70 H 91 L Weight Weight 223 lb 9.6 oz I&O: 01/16/18 01/17/18 01/18/18 06:59 06:59 06:59 Intake Total 1080 Output Total 500 Balance 580 Result Diagrams: 01/17/18 05:04 01/17/18 05:04 Additional Labs: Accuchecks 01/17/18 01/17/18 01/16/18 11:06 06:22 20:31 POC Glucose 123 H 131 H 136 H 01/16/18 17:01 POC Glucose 101 Phys Exam - Physical Examination Neck: no nodes, no JVD, supple, full ROM Respiratory: no wheezing, no rales, no rhonchi, wheezing present, clear to auscultation bilateral Cardiovascular: RRR, no significant murmur, no rub, gallop, irregular Gastrointestinal: soft, non-tender, no distention, positive bowel sounds Musculoskeletal: no edema, pulses present, edema present Neurological: non-focal, normal sensation, moves all 4 limbs Dx/Plan (1) Muscular deconditioning Code(s): R29.898 - OTH SYMPTOMS AND SIGNS INVOLVING THE MUSCULOSKELETAL SYSTEM Status: Acute (2) Obesity (BMI 30.0-34.9) Code(s): E66.9 - OBESITY, UNSPECIFIED Status: Chronic (3) Dementia Code(s): F03.90 - UNSPECIFIED DEMENTIA WITHOUT BEHAVIORAL DISTURBANCE Status: Chronic - Plan will order PT for pt -: will work on pt's placemenet * . Review of Systems - Review of Systems Cardiovascular: negative: chest pain, palpitations, orthopnea, paroxysmal nocturnal dyspnea, edema, light headedness, other Gastrointestinal: negative: Nausea, Vomiting, Abdominal Pain, Diarrhea, Constipation, Melena, Hematochezia, Other Genitourinary: negative: Dysuria, Frequency, Incontinence, Hematuria, Retention , Other Musculoskeletal: negative: Neck Pain, Shoulder Pain, Arm Pain, Back Pain, Hand Pain, Leg Pain, Foot Pain, Other - Medications/Allergies Allergies/Adverse Reactions: Allergies Allergy/AdvReac Type Severity Reaction Status Date / Time No Known Allergies Allergy Verified 01/12/18 20:18 Medications: Current Medications Acetaminophen (Tylenol) 650 mg PO Q4H PRN PRN Reason: Headache/Fever/Mild Pain (1-3) Aspirin (Aspirin Chewable) 81 mg PO DAILY [facility] Last Admin: 01/17/18 10:01 Dose: 81 mg Atorvastatin Calcium (Lipitor) 40 mg PO HS [facility] Last Admin: 01/16/18 20:59 Dose: 40 mg Benztropine Mesylate (Cogentin) 1 mg PO HS [facility] Last Admin: 01/16/18 20:59 Dose: 1 mg Bisacodyl (Dulcolax) 10 mg PO DAILYPRN PRN PRN Reason: Constipation Carbidopa/Levodopa (Sinemet 25-100) 1 tab PO BID [facility] Last Admin: 01/17/18 10:01 Dose: 1 tab Clonidine (Catapres) 0.1 mg PO BID PRN PRN Reason: SBP Greater Than 180 Dextrose/Water (Dextrose 50%) 25 gm SLOW IVP PRN PRN PRN Reason: Hypoglycemia Docusate Sodium (Colace) 100 mg PO BID PRN PRN Reason: Constipation Duloxetine HCl (Cymbalta) 20 mg PO DAILY [facility] Last Admin: 01/17/18 10:02 Dose: 20 mg Enoxaparin Sodium (Lovenox) 40 mg SC 0900 [facility] Last Admin: 01/17/18 10:02 Dose: 40 mg Fluoxetine HCl (Prozac) 60 mg PO DAILY [facility] Last Admin: 01/17/18 10:02 Dose: 60 mg Gabapentin (Neurontin) 100 mg PO QAM [facility] Last Admin: 01/17/18 10:01 Dose: 100 mg Glipizide (Glucotrol) 5 mg PO DAILY-[facility] Glucagon (Glucagon) 1 mg IM PRN PRN PRN Reason: Hypoglycemia Lisinopril/HCTZ (Prinizide 20-12.5) 1 tab PO DAILY [facility] Last Admin: 01/17/18 10:01 Dose: 1 tab Dextrose/Water (D5w) 1,000 mls @ 0 mls/hr IV .Q0M PRN PRN Reason: Hypoglycemia Insulin Human Lispro (Humalog) 0 units SC .MILD SLIDING SCALE PRN PRN Reason: Mild Correctional Scale Pantoprazole Sodium (Protonix) 40 mg PO DAILY [facility] Last Admin: 01/17/18 10:02 Dose: 40 mg Risperidone (Risperidone) 3 mg PO HS [facility] Last Admin: 01/16/18 20:59 Dose: 3 mg Venlafaxine HCl (Effexor) 75 mg PO DAILY [facility] Last Admin: 01/17/18 10:01 Dose: 75 mg
--- NOTE | 2018-01-17 15:53 | EKG ---
Test Reason : Blood Pressure : / mmHG Vent. Rate : 079 BPM Atrial Rate : 079 BPM P-R Int : 232 ms QRS Dur : 106 ms QT Int : 416 ms P-R-T Axes : 065 -14 027 degrees QTc Int : 477 ms Sinus rhythm with 1st degree A-V block Minimal voltage criteria for LVH, may be normal variant Nonspecific T wave abnormality Prolonged QT Abnormal ECG Confirmed by RAY GUTIERREZ ([id number]), digital editor ANA SIMONS ([id number]) on 01/17/2018 3:53:16 PM Referred By: Confirmed By:RAY GUTIERREZ
[2018-01-17 20:12] VITALS: BP 119/67; TEMP 98.4
[2018-01-18] MEDS ORDERED: glipiZIDE 5 MG TAB PO SCH (07:30)
== END 2018-01-17 20:08 ==
LOC: ERS 06:18 → 2NO 12:41
PROVIDERS: ADMIT Internal Medicine; ATTEND Internal Medicine
DX: R53.1 Weakness (principal); I10 Essential (primary) hypertension; E11.9 Type 2 diabetes mellitus without complications; F03.90 Unspecified dementia, unspecified severity, without behavioral disturbance, psychotic disturbance, mood disturbance, and anxiety; J44.9 Chronic obstructive pulmonary disease, unspecified; G20 Parkinson's disease; E66.9 Obesity, unspecified; Z68.32 Body mass index [BMI] 32.0-32.9, adult; Z90.49 Acquired absence of other specified parts of digestive tract; Z79.82 Long term (current) use of aspirin; Z79.84 Long term (current) use of oral hypoglycemic drugs; Z79.899 Other long term (current) drug therapy
CPT/HCPCS: 51701; 51702; 70450; 72100; 80048; 80053; 81003; 82553; 82607; 82805; 82962 ×2; 83880; 84443; 84484 ×2; 85025 ×2; 93005; 94660; 96360; 96361; 96372; 97139; 99285; G0378 ×2; G8978; G8979; 36415; 36416; J0456; J0696; J1650

== ENCOUNTER 2018-01-29 04:00 | Inpatient (IN) | payer MEDICARE ==
[2018-01-29 04:49] LABS: Bilirubin Negative (Negative); Blood, Urine Large (Negative); Clarity CLOUDY (Clear); Glucose, Urine (Dipstick) Negative (Negative); Leukocyte Large (Negative); Nitrite Positive (Negative); Protein, Urine (Dipstick) 30 mg/dL (Neg-Trace); pH, Urine 6.5 (5.0-9.0)
[2018-01-29 04:51] LABS: Bacteria/HPF 2+ HPF (None Seen); Pathc Cast-AUWi Flag 2.34 (0-2.49); RBC/HPF GREATER THAN 50-TNTC HPF (0-3); Squamous Epithelial None Seen HPF (0-3)
[2018-01-29 04:53] LABS: #Eosinphils 0.1 thou/uL (0.0-0.7); #Lymphocytes 1.2 thou/uL (1.20-3.40); #Monocytes 0.6 thou/uL (0.11-0.59); #Neutrophils 5.1 thou/uL (1.40-6.50); %Basophils 0.1 % (0.0-1.0); %Eosinophils 1.1 % (0.0-10.0); %Lymphocytes 16.7 % (21.0-51.0); %Monocytes 8.5 % (0.0-10.0); %Neutrophils 73.7 % (42.0-75.0); Hemoglobin 12.1 g/dL (14.0-18.0); Mean Corpuscular HGB CONC 33.3 g/dL (32.0-36.0); Mean Corpuscular Hemoglobin 30.6 pg (27.0-31.0); Mean Corpuscular Volume 91.8 fL (78.0-98.0); Mean Platelet Volume 6.4 fL (7.4-10.4); Platelet Count 225 thou/uL (130-400); RBC Distribution Width 12.2 % (11.5-14.5); Red Blood Cell (RBC) Count 3.95 mill/uL (4.70-6.10); White Blood Cell (WBC) Count 6.9 thou/uL (4.8-10.8)
[2018-01-29 04:56] LABS: Hyaline Casts/LPF 0-3 HYALINE CAST LPF (0-3 Hyaline)
[2018-01-29 04:59] LABS: Base Excess-Venous 1.5 mmol/L (0 (+/- 2.5)); Bicarbonate (HCO3v) 28.3 mmol/L (22.0-29.0); CO2 Tension (PvCO2) 53.4 mmHg (41.0-51.0); Calcium, Ionized 1.23 mmol/L (1.12-1.32); Hemoglobin - Calc 12.2 g/dL (12.0-18.0); Potassium 3.7 mmol/L (3.4-4.7); T. Carbon Dioxide 29.9 mmol/L (1.0-85.0); pH (Venous) 7.332 (7.35-7.45); vO2 Saturation-calc 70.2 % (94-98)
[2018-01-29 05:17] LABS: ALT (SGPT) Less than 7 U/L (8-55); AST (SGOT) 17 U/L (5-34); Alkaline Phosphatase 64 U/L (40-150); Anion Gap 14 mmol/L (10-20); BUN (Urea Nitrogen) 10 mg/dL (8.4-25.7); Bilirubin, Total 0.3 mg/dL (0.2-1.2); Calc. Creatinine Clearance 0 mL/min (70-130); Calcium 9.5 mg/dL (7.8-10.44); Carbon Dioxide 23 mmol/L (23-31); Chloride 104 mmol/L (98-107); Estimated GFR-MDRD Greater than 90; Globulin 3.7 g/dL (2.4-3.5); Glucose 138 mg/dL (80-115); Potassium 3.9 mmol/L (3.5-5.1); Protein, Total 7.7 g/dL (5.8-8.1); Sodium 137 mmol/L (136-145)
[2018-01-29] MEDS ORDERED: Piperacillin/Tazobactam 3.375 GM VIAL ONE (05:23)
[2018-01-29] MEDS ORDERED: Furosemide 40 MG/4 ML VIAL ONE (06:50)
[2018-01-29] MEDS ORDERED: Nitroglycerin 2% Ointment 1 INCH/1 GM Packet ONE (06:57)
[2018-01-29] MEDS ORDERED: Ondansetron PF 4 MG/2 ML Vial ONE (06:57)
[2018-01-29 06:58] LABS: Actual Bicarbonate (HCO3a) 27.5 mEq/L (22-28); Analyzer IN Cardio ER; Base Excess (BEa) -1.2 mEq/L (-2.0 to +3.0); Calcium, Ionized 1.16 mmol/L (1.12-1.30); Carboxyhemoglobin (COHb) 1.7 gm% (0.0-3.0); Hemoglobin (Hb) 11.6 g/dL (14.0-18.0); O2 Tension (PaO2) 77.3 mmHg (> 80.0); Potassium - ABG Lab 3.72 mmol/L (3.70-5.30)
[2018-01-29 06:59] LABS: ALV-art Gradient 66.985 (0-20); CO2 Tension 67.1 mmHg (35.0-45.0); Puncture Site RBRACH; pH, Arterial 7.23 (7.35-7.45)
[2018-01-29 07:03] LABS: CKMB 1.3 ng/mL (0-6.6)
[2018-01-29] MEDS ORDERED: Fentanyl 100 MCG/2 ML VIAL ONE (07:24)
[2018-01-29] MEDS ORDERED: Midazolam HCl 2 mg/2 ml Vial ONE (07:25)
[2018-01-29] MEDS ORDERED: fentaNYL Citrate/PF 2,000 MCG in Sodium Chloride 0.9% 60 ML IV SCH (07:27)
[2018-01-29] MEDS ORDERED: Propofol 1,000 MG/100 ML VIAL IV ONE (07:28)
[2018-01-29 07:52] LABS: Actual Bicarbonate (HCO3a) 25.7 mEq/L (22-28); Analyzer IN Cardio ER; Base Excess (BEa) -0.2 mEq/L (-2.0 to +3.0); CO2 Tension 47.5 mmHg (35.0-45.0); Calcium, Ionized 1.08 mmol/L (1.12-1.30); Carboxyhemoglobin (COHb) 1.6 gm% (0.0-3.0); Hemoglobin (Hb) 11.1 g/dL (14.0-18.0); Potassium - ABG Lab 3.46 mmol/L (3.70-5.30); pH, Arterial 7.35 (7.35-7.45)
[2018-01-29 07:53] LABS: ALV-art Gradient 156.825 (0-20); Puncture Site RRA
[2018-01-29 08:08] LABS: Troponin I 0.034 ng/mL (< 0.028)
--- NOTE | 2018-01-29 08:28 | RAD ---
PORTABLE CHEST 1 VIEW: Date: 01/29/18 Time: 0723 hours HISTORY: Respiratory failure. FINDINGS/IMPRESSION: Comparison made with earlier exam at 0440 hours. There has been interval placement of an endotracheal tube with tip at the level of the clavicular hea ds. Nasogastric tube has been traced into the stomach. No pneumothoraces are seen. Remainder of exam is stable. POS: [facility]
--- NOTE | 2018-01-29 08:36 | RAD ---
PORTABLE CHEST 1 VIEW: Date: 01/29/18 Time: 0440 hours HISTORY: Dementia, fall. FINDINGS/IMPRESSION: Comparison made with exam of 01/12/18. The patient is rotated. The heart is enlarged. There are patchy infiltrates in the right mid and lowe r lung zones, and the right lower lung zone. No pneumothoraces or large effusions are seen. POS: [facility]
--- NOTE | 2018-01-29 09:28 | CT ---
PRELIMINARY REPORT/[facility]/EMERGENTY AFTER-HOURS PROCEDURE CT Head Without Contrast EXAM DATE/TIME: 01/29/2018 4:54 AM CLINICAL HISTORY: 67 years old, male; Injury or trauma and signs and symptoms; Fall; Initial encounter; Alteration of c onsciousness and syncope and collapse; Patient HX: PT a&0xo, family reports PT fell out of bed at 03: 00. HX of dementia. TECHNIQUE: Axial computed tomography images of the head/brain without contrast COMPARISON: CT Brain WO Con 01/12/2018 12:34 AM FINDINGS: Brain: Enlargement of the extra-axial spaces is consistent with diffuse brain volume loss. There is e vidence of bilateral periventricular white matter disease. Ventricles: Enlargement of the ventricles is consistent with diffuse brain volume loss. Bones/joints: Normal. No fracture. Sinuses: Normal as visualized. No acute sinusitis. Mastoid air cells: Normal as visualized. No mastoid effusion. Soft tissues: Normal. Vasculature: There is evidence of atherosclerosis. IMPRESSION: No acute abnormality identified. No significant interval change. Thank you for allowing us to participate in the care of your patient. Dictated and Authenticated by: Bridger Serrato MD 01/29/2018 5:30 AM Central Time ([place] & [place]) FINAL REPORT CT BRAIN WITHOUT CONTRAST: Date: 01/29/18 FINDINGS/IMPRESSION: I agree with the preliminary report given by Jonny. POS: [facility]
--- NOTE | 2018-01-29 09:29 | CT ---
PRELIMINARY REPORT/[facility]/EMERGENTY AFTER-HOURS PROCEDURE CT Cervical Spine Without Contrast EXAM DATE/TIME: 01/29/2018 4:54 AM CLINICAL HISTORY: 67 years old, male; Injury or trauma; Fall; Initial encounter; Unconscious; Injury date: 01/29/2018; Patient HX: PT a&0xo, family reports PT fell out of bed at 03: 00. HX of dementia. TECHNIQUE: Axial computed tomography images of the cervical spine without intravenous contrast. COMPARISON: CTA Angio Head W WO Con 01/12/2018 1:50 AM FINDINGS: Vertebrae: There is diffuse osteopenia. There are mild degenerative changes at several levels. Discs/Spinal canal/Neural foramina: No spinal stenosis. No neural foraminal narrowing. Soft tissues: Unremarkable. Lungs: Lung apices are normal. Vasculature: There is evidence of atherosclerosis. IMPRESSION: No acute abnormality identified. Thank you for allowing us to participate in the care of your patient. Dictated and Authenticated by: Bridger Serrato MD 01/29/2018 5:24 AM Central Time ([place] & [place]) FINAL REPORT CT CERVICAL SPINE WITH CORONAL AND SAGITTAL REFORMATIONS: Date: 01/29/18 FINDINGS/IMPRESSION: I agree with the preliminary report given by Jonny. POS: [facility]
[2018-01-29] MEDS ORDERED: Dextrose 5% in Water 1,000 ML IV PRN (09:37)
[2018-01-29] MEDS ORDERED: Acetaminophen 325 MG TAB PO PRN (09:37)
[2018-01-29] MEDS ORDERED: Dextrose 50% Abboject 50 ML SYRINGE SLOW IVP PRN (09:37)
[2018-01-29] MEDS ORDERED: CCU Electrolyte Replacement 1 EACH FS ONE (09:37)
[2018-01-29] MEDS ORDERED: HumaLOG 300 UNITS/3 ML VIAL SC PRN (09:37)
[2018-01-29] MEDS ORDERED: Acetaminophen 650 MG Suppository PR PRN (09:37)
[2018-01-29] MEDS ORDERED: Sodium Chloride 0.9% 1,000 ML IV SCH ×2 (09:45→19:45)
[2018-01-29] MEDS ORDERED: Potassium Phosphate 9 MMOL in Sodium Chloride 0.9% 100 ML IVPB PRN (10:02)
[2018-01-29] MEDS ORDERED: Magnesium 2 GM/NS 0.9% 100 ML 2 GM in Premix Bag 1 BAG IVPB PRN (10:02)
[2018-01-29] MEDS ORDERED: Potassium Phosphate 15 MMOL in Sodium Chloride 0.9% 250 ML 250 ML IV PRN (10:02)
[2018-01-29] MEDS ORDERED: CCU ELECTROLYTE REPLACEMENT PROTOCOL FS PRN (10:02)
[2018-01-29] MEDS ORDERED: Potassium Chloride 40 MEQ in Premix Bag 1 BAG IVPB PRN (10:02)
[2018-01-29] MEDS ORDERED: Potassium Chloride 40 MEQ in Sodium Chloride 0.9% 250 ML 250 ML IVPB PRN (10:02)
[2018-01-29] MEDS ORDERED: Potassium Phosphate 12 MMOL in Sodium Chloride 0.9% 250 ML 250 ML IV PRN (10:02)
[2018-01-29] MEDS ORDERED: Potassium Chloride 20 MEQ TAB PO PRN (10:02)
[2018-01-29] MEDS ORDERED: Magnesium Oxide 400 MG TAB PO PRN ×2 (10:02)
--- NOTE | 2018-01-29 11:05 | HP ---
REASON FOR ADMISSION: Acute respiratory failure with hypoxia, COPD exacerbation , acute encephalopathy, severe deconditioning. HISTORY OF PRESENTING ILLNESS: Please note majority of this history is obtained by talking to Dr. Navas, ER physician and the patient's , Ms. Donavan Alvarez over the phone as the patient is intubated at present. The patient apparently was discharged from rehab yesterday. He was still very weak and he could not get up and walk by himself per . Son was helping him out yesterday evening. This morning around 3:00 in the morning, the patient's son went to check on him when he found him on the floor. He was incoherent, did not know where he was. He thought he was in [place]. He was not in his right mind per . They called EMS and the patient was brought here. On arrival, the patient had a GCS of 7 and had difficulty maintaining airway. He was very somnolent and essentially was intubated for airway. He was not conscious enough to be tried on BiPAP. The mentions that he was discharged with an indwelling Douglas catheter. He apparently pulled it out prior to arrival here. Currently, he is sedated and is on the ventilator at present. PAST MEDICAL AND SURGICAL HISTORY: The patient had massive IL with cardiac complications and had extensive surgery done at [facility], this was on July 07 of this year. He apparently had a massive IL and Dr. Velazquez and Dr. Hays were his physicians there. The does not recall what exactly they did except that she knows that he got some stents put in and had extensive surgery with incision placed on the left anterior chest wall. Hypertension, COPD, PTSD, bipolar, and depression all after he came back from [place]. Parkinson disease, psychosis with likely dementia as well, dyslipidemia, prior history of T7-T8 disk/vertebral fracture issue, chronic shoulder pain, hammertoe surgery, dyslipidemia, diabetes mellitus type 2, cholecystectomy. CURRENT MEDICATIONS: The patient was discharged from here on the on albuterol nebulizer q.6 hourly, aspirin 81 mg daily, atorvastatin 40 mg p.o. at bedtime, Cogentin 1 mg p.o. at bedtime, levodopa-carbidopa 25/100 mg twice daily, Flexeril 10 mg three times daily, clonidine 0.1 mg twice daily, Cymbalta 20 mg daily, Colace 100 mg daily, vitamin D2 50,000 units once weekly, fluoxetine 60 mg daily, gabapentin 200 mg p.o. at bedtime and 100 mg p.o. daily, glipizide 5 mg p.o. daily, Lopressor 12.5 mg p.o. daily, Protonix 40 mg p.o. daily, fish oil 2000 mg daily, multivitamin one tablet once daily, Risperdal 3 mg p.o. at bedtime, trazodone 50 mg p.o. at bedtime, venlafaxine 75 mg p.o. daily, lisinopril 20 mg p.o. daily. ALLERGIES: NO KNOWN DRUG ALLERGIES. PERSONAL HISTORY: Quit smoking two years back, was a heavy smoker prior to that and was smoking pack and a half every day for nearly 40 years prior to that. Does not abuse alcohol or drugs. He is to his for nearly 26 years. FAMILY HISTORY: Mother in a motor vehicle accident in her 20s. Father had IL, in his 70s. Code status is full. Power of plant maintenance engineer is his , Ms. Donavan Alvarez. REVIEW OF SYSTEMS: Cannot be obtained as the patient is intubated and is not conscious at present. PHYSICAL EXAMINATION: GENERAL: The patient is a 67-year-old male, who is currently on the ventilator. VITAL SIGNS: Blood pressure 192/86, pulse 90 per minute, respiratory rate 22 per minute on arrival, temperature 99.2 degrees Fahrenheit. Saturating 82% initially on arrival, later 90% on 3 L oxygen. He is currently saturating 100% on ventilator. NECK: Supple. No elevated JVD. EYES: Pupils are reacting to light and it is 3 mm. Oral cavity, the patient is orally intubated at present with endotracheal tube #7.5 up to 23 cm to the incisor. Has an NG tube placed as well as some mild bleeding due to placement of NG tube on the nasal and oral, around the lips. CARDIOVASCULAR SYSTEM: S1 and S2 heard. Regular rhythm. RESPIRATORY SYSTEM: Air entry 1+ bilateral. Scattered wheezes plus bilateral. ABDOMEN: Soft. Bowel sounds heard. No tenderness, rigidity, or guarding. EXTREMITIES: No peripheral edema or calf tenderness. VASCULAR: Both peripheral pulses are 1+ bilateral. No ischemic ulcerations or gangrene. CENTRAL NERVOUS SYSTEM: No gross focal sign seen. The patient apparently was moving all extremities on arrival. PSYCHIATRIC: Cannot be assessed as the patient is not conscious and is sedated on ventilator at present. Please note, the patient has an indwelling Douglas catheter now, which was placed after he pulled out his prior Douglas. There was some dried crust of blood around the urethra. LABORATORY DATA: EKG done shows normal sinus rhythm at 83 beats per minute. There is incomplete RBBB seen. White count of 6.9, hemoglobin and hematocrit of 12 and 36, platelet count 225, with 73% neutrophils, MCV is 91. Blood gas done shows a pH of 7.23, pCO2 of 67, PO2 of 77. Repeat blood gas after intubation shows a pH of 7.35, pCO2 of 47, PO2 of 69, this was on 40% FiO2 on the ventilator. Electrolytes are stable. BUN is 10, creatinine 0.7, serum glucose 138. Liver enzymes within normal limits. Ammonia level is 26. Troponin-I is indeterminate, peaking up to 0.04. CK-MB 1.3. Albumin is 4.0. BNP is 136. CT of brain done shows no acute abnormality. CT cervical spine shows no acute abnormality. Chest x-ray done shows cardiomegaly and mild patchy infiltrates in the right mid and lower lung zones and the right lower lung zone. No pneumothorax or large effusions were seen. CLINICAL IMPRESSION AND PLAN: The patient will be admitted to ICU for acute respiratory failure with hypoxia, chronic obstructive pulmonary disease exacerbation with prior history of heavy smoking, likely polypharmacy with multiple psychotropic and antidepressant medications along with pain medications/muscle relaxants. The patient has had a prior echo done on the 13 of January, which showed EF of 60 % to 65%. There was diastolic dysfunction. No other major valvular abnormalities were seen. He will be on Levaquin, DuoNeb, Solu-Medrol, and gentle hydration with normal saline at 50 mls per hour. We will continue his Risperdal, Neurontin, Cymbalta, Cogentin, aspirin, Lipitor, and duloxetine as before. I have spoken to Dr. Medina for Pulmonary and Critical Care consultation. I have given complete updates to Ms. Donavan Alvarez, his , who is also his power of plant maintenance engineer and she will be coming to visit him shortly. He is a full code. This was confirmed with her. Ms. Donavan Alvarez also mentions that off late, the patient has been having some psychotic issues like suspecting her to be having boyfriends in the house, which she does not and she states she is 74 years old and this is not her usual . He has Parkinson's and PTSD along with bipolar disorder with psychosis versus medication induced. This has been ongoing for a year or so now. She does mention that all his medical issues and hospitalizations were all from early part of this year, prior to which he was apparently healthy. Job ID: [id number] [facility]
[2018-01-29 12:06] LABS: Troponin I 0.038 ng/mL (< 0.028)
[2018-01-29] MEDS ORDERED: VANCOMYCIN IVPB PRN (12:29)
--- NOTE | 2018-01-29 13:04 | CON ---
DATE OF CONSULTATION: 01/29/2018 SERVICE: Pulmonary Medicine REASON FOR CONSULT: Respiratory failure. HISTORY OF PRESENT ILLNESS: The patient is a 67-year-old white male with past medical history significant for some degree of cognitive impairment. Apparently , he was in his usual state of health last night when he went to sleep. He woke up at 3 o'clock in the morning and fell out of bed and onto the floor. His said that he was not breathing correctly at that point. EMS services were contacted and patient was subsequently brought to the emergency department. He cannot provide me any additional elements of the history at this point. His GST was low in the emergency department prompting placement of an endotracheal tube. He has had multiple recent presentations to the hospital for generalized weakness and multiple falls. Apparently, he has some cognitive impairment at baseline. The extent of his dementia is not known to me. PAST MEDICAL HISTORY: 1. Parkinson disease. 2. COPD. 3. Type 2 diabetes mellitus. 4. Hypertension. 5. Dementia. PAST SURGICAL HISTORY: Cholecystectomy. SOCIAL HISTORY: Negative for alcohol, tobacco, or illicit drug use currently. FAMILY HISTORY: Noncontributory. ALLERGIES: NO KNOWN DRUG ALLERGIES. MEDICATIONS: List of his inpatient medications was reviewed within the medical record system. Multiple updates were made at this time. REVIEW OF SYSTEMS: This cannot be obtained as the patient is currently intubated and sedated. PHYSICAL EXAMINATION: VITAL SIGNS: Afebrile. Pulse 97, blood pressure 153/94, respirations 23, and saturation 97% on 37% FiO2 and a PEEP of 7. GENERAL: The patient is intubated. He is sedated. HEENT: Normocephalic and atraumatic. Sclerae white. Conjunctivae pink. Oral mucosa is moist without lesions. LUNGS: Decent air entry with dependent crackles. There is no prolonged expiratory phase or wheezing appreciated. HEART: Normal rate, regular. ABDOMEN: Soft, distended. Bowel sounds are present. No rebound or guarding is appreciated. MUSCULOSKELETAL: No cyanosis or clubbing. I really do not appreciate pitting in the bilateral lower extremities. NEUROLOGIC: Grossly nonfocal. LABORATORY DATA: WBC 6.9, hemoglobin 12.1, platelets 225,000. Neutrophil count is normal. Differential remains stable. INR 1.1. PH 7.35, pCO2 47, pO2 70. This corresponds to saturation of 93%. Troponin is gently up-trending to 0.038, but this is at his baseline. BNP 136, which is high for this patient. Ionized calcium falls within normal limits. Lactate is negative x1. Basic metabolic profile and liver function studies are otherwise unremarkable. Albumin is 4.0. Urinalysis is positive for red blood cells and white blood cells. It is positive for nitrites. Urine drug screen is positive for tricyclic antidepressants, but this was a month ago. Blood cultures x2 and urine culture were previously unremarkable. Repeats are currently pending. IMAGING STUDIES: 1. CT of the C-spine demonstrates no acute cervical abnormality identified. 2. CT of the brain demonstrates no acute intracranial abnormality. 3. Chest x-ray demonstrates endotracheal tube is in good position. Left pleural parenchymal opacification cannot be excluded. Enteric catheter courses in the midline below the level of the diaphragm. Pulmonary vascular congestion is noted. ASSESSMENT: 1. Metabolic encephalopathy. 2. Acute hypoxic respiratory failure. 3. Severe sepsis. 4. Urinary tract infection, suspected. 5. Healthcare-associated pneumonia. 6. Chronic diastolic heart failure with no current overload. DISCUSSION AND PLAN: We will give the patient broad-spectrum antibiotics to cover both lung and pathology. We will give him daily spontaneous breathing trial after a sedation holiday and extubate him once he is able. I will send a sputum and Gram stain from his respiratory secretions to see if we can identify culprit organism. Currently, blood cultures and urine cultures are pending. Pulmonary/Critical Care will continue to follow along while we continue our supportive measures here. Critical care time: 30 minutes. Job ID: [id number] MTDD
[2018-01-29] MEDS: Cefepime 2 GM in Sodium Chloride 0.9% 100 ML IVPB SCH (13:31)
[2018-01-29] MEDS: Sodium Chloride 0.45% 1,000 ML IV SCH (13:33)
[2018-01-29] MEDS ORDERED: Morphine 2 MG/ML SYRINGE SLOW IVP PRN (13:41)
[2018-01-29] MEDS ORDERED: Lorazepam 2 MG/ML VIAL SLOW IVP PRN (13:41)
[2018-01-29] MEDS ORDERED: DISCONTINUE PREVIOUS NARCOTIC PAIN MEDICATIONS AND BENZODIAZEPINES FS SCH (13:41)
[2018-01-29] MEDS ORDERED: Fentanyl BOLUS 250 ML IVPB PRN (13:41)
[2018-01-29] MEDS ORDERED: Propofol BOLUS 1,000 MG/100 ML VIAL IV PRN (13:41)
[2018-01-29] MEDS ORDERED: Morphine 4 MG/ML VIAL SLOW IVP PRN (13:43)
[2018-01-29 14:28] LABS: Troponin I 0.034 ng/mL (< 0.028)
[2018-01-29] MEDS: Vancomycin HCl 1.5 GM in Sodium Chloride 0.9% 250 ML 300 ML IVPB SCH (17:06)
[2018-01-29] MEDS: Gabapentin 100 MG CAP PO SCH (20:24)
[2018-01-29] MEDS: Atorvastatin Calcium 40 MG TAB PO SCH (20:24)
[2018-01-29] MEDS: Famotidine/PF 20 mg/2ml Vial SLOW IVP SCH (20:24)
[2018-01-29] MEDS: Carbidopa/Levodopa 25-100 mg Tablet PO SCH (20:24)
[2018-01-29] MEDS ORDERED: Vancomycin HCl 1 GM in Premix Bag 1 BAG IVPB SCH (21:00)
[2018-01-29] MEDS ORDERED: risperiDONE 3 MG TAB PO SCH (21:00)
[2018-01-29] MEDS ORDERED: Benztropine 1 MG TAB PO SCH (21:00)
[2018-01-30] MEDS: Cefepime 2 GM in Sodium Chloride 0.9% 100 ML IVPB SCH ×2 (00:16→13:30)
[2018-01-30] MEDS: Sodium Chloride 0.45% 1,000 ML IV SCH ×3 (00:39→21:06)
[2018-01-30] MEDS: Vancomycin HCl 1.5 GM in Sodium Chloride 0.9% 250 ML 300 ML IVPB SCH ×2 (04:11→17:14)
[2018-01-30 04:29] LABS: #Lymphocytes 1.4 thou/uL (1.20-3.40); #Monocytes 0.5 thou/uL (0.11-0.59); #Neutrophils 5.3 thou/uL (1.40-6.50); %Basophils 0.2 % (0.0-1.0); %Eosinophils 0.2 % (0.0-10.0); %Monocytes 6.9 % (0.0-10.0); %Neutrophils 73.7 % (42.0-75.0); Hemoglobin 10.9 g/dL (14.0-18.0); Mean Corpuscular HGB CONC 32.7 g/dL (32.0-36.0); Mean Corpuscular Hemoglobin 30.3 pg (27.0-31.0); Mean Corpuscular Volume 92.5 fL (78.0-98.0); Mean Platelet Volume 6.2 fL (7.4-10.4); Platelet Count 208 thou/uL (130-400); RBC Distribution Width 12.3 % (11.5-14.5); White Blood Cell (WBC) Count 7.2 thou/uL (4.8-10.8)
[2018-01-30 04:40] LABS: Anion Gap 13 mmol/L (10-20); BUN (Urea Nitrogen) 14 mg/dL (8.4-25.7); Calc. Creatinine Clearance 128 mL/min (70-130); Calcium 8.6 mg/dL (7.8-10.44); Carbon Dioxide 24 mmol/L (23-31); Chloride 104 mmol/L (98-107); Estimated GFR-MDRD Greater than 90; Glucose 120 mg/dL (80-115); Sodium 137 mmol/L (136-145)
[2018-01-30] MEDS: fentaNYL Citrate/PF 2,000 MCG in Sodium Chloride 0.9% 60 ML IV SCH (06:53)
[2018-01-30 07:10] LABS: Actual Bicarbonate (HCO3a) 28.4 mEq/L (22-28); Base Excess (BEa) 1.5 mEq/L (-2.0 to +3.0); CO2 Tension 56.4 mmHg (35.0-45.0); Calcium, Ionized 1.19 mmol/L (1.12-1.30); Carboxyhemoglobin (COHb) 1.5 gm% (0.0-3.0); Hemoglobin (Hb) 10.7 g/dL (14.0-18.0); O2 Tension (PaO2) 73.1 mmHg (> 80.0); Potassium - ABG Lab 3.69 mmol/L (3.70-5.30); pH, Arterial 7.32 (7.35-7.45)
[2018-01-30 07:15] LABS: Puncture Site RRA
[2018-01-30] MEDS: Carbidopa/Levodopa 25-100 mg Tablet PO SCH ×2 (08:42→21:06)
[2018-01-30] MEDS: Enoxaparin Sodium 40 MG/0.4 ML SYRINGE SC SCH (08:42)
[2018-01-30] MEDS: Gabapentin 100 MG CAP PO SCH ×2 (08:42→21:06)
[2018-01-30] MEDS: Famotidine/PF 20 mg/2ml Vial SLOW IVP SCH ×2 (08:42→21:05)
[2018-01-30] MEDS ORDERED: FLUoxetine HCl 20 MG CAP PO SCH (09:00)
[2018-01-30] MEDS ORDERED: Prevnar 13-Val Conj/PF 0.5 ML SYRINGE IM ONE (09:00)
[2018-01-30] MEDS ORDERED: Pancrelipase DR 12000 1 CAP FS PRN (10:58)
[2018-01-30] MEDS ORDERED: Sodium Bicarbonate Tab 325 MG TAB PER TUBE PRN (10:58)
--- NOTE | 2018-01-30 11:26 | PDOC.PN ---
- Subjective Encounter Start Date: 01/30/18 Encounter Start Time: 07:45 Subjective: is waking up on vent, is off sedation from 4 am for weaning -: not fully oriented, seen moving all extremities - Objective Resuscitation Status - Order Detail: 01/29/18 09:32 Resuscitation Status Routine Resuscitation Status: FULL: Full Resuscitation Discussed with: DUNIA is Mrs. Donavan GAVIRIA Reviewed: Yes Vital Signs & Weight: Vital Signs (12 hours) Temp Pulse Resp BP Pulse Ox 01/30/18 10:00 13 01/30/18 09:58 97 122/69 01/30/18 08:00 97.8 F 13 100 01/30/18 06:40 86 20 109/73 100 01/30/18 06:00 11 L 01/30/18 04:00 13 01/30/18 03:00 99.2 F 01/30/18 02:25 81 121/67 01/30/18 02:00 11 L 01/30/18 00:00 75 11 L 117/71 Weight Admit Weight 229 lb Weight 229 lb 4.492 oz Most Recent Monitor Data Heart Rate from ECG 97 NIBP 106/59 NIBP BP-Mean 74 Respiration from ECG 10 SpO2 100 I&O: 01/29/18 01/30/18 01/31/18 06:59 06:59 06:59 Intake Total 1975.3 Output Total 1480 115 Balance 495.3 -115 Result Diagrams: 01/30/18 04:16 01/30/18 04:16 Additional Labs: Accuchecks 01/30/18 01/29/18 00:09 12:30 POC Glucose 123 H 133 H Phys Exam - Physical Examination HEENT: PERRLA, moist MMs Neck: no JVD, supple Respiratory: no wheezing, no rales Cardiovascular: RRR, no significant murmur Gastrointestinal: soft, non-tender, positive bowel sounds Musculoskeletal: no edema, pulses present Neurological: non-focal, moves all 4 limbs Dx/Plan (1) Acute respiratory failure with hypoxia and hypercapnia Code(s): J96.01 - ACUTE RESPIRATORY FAILURE WITH HYPOXIA; J96.02 - ACUTE RESPIRATORY FAILURE WITH HYPERCAPNIA Status: Acute (2) Acute encephalopathy Code(s): G93.40 - ENCEPHALOPATHY, UNSPECIFIED Status: Acute (3) Muscular deconditioning Code(s): R29.898 - OTH SYMPTOMS AND SIGNS INVOLVING THE MUSCULOSKELETAL SYSTEM Status: Chronic (4) Anemia, normocytic normochromic Code(s): D64.9 - ANEMIA, UNSPECIFIED Status: Chronic (5) Dementia Code(s): F03.90 - UNSPECIFIED DEMENTIA WITHOUT BEHAVIORAL DISTURBANCE Status: Chronic Qualifiers: Dementia type: Parkinson's disease (6) Obesity (BMI 30.0-34.9) Code(s): E66.9 - OBESITY, UNSPECIFIED Status: Chronic (7) Parkinson disease Code(s): G20 - PARKINSON'S DISEASE Status: Chronic - Plan weaning per pulm advice -: is very broad spectrum antibiotics, suggest scale down -: blood and urine cs are -ve (prelim) -: continue nebs, steroids, levodopa, cogentin and risperdal -: may hold risperdal and cogentin if still encephalopathic this noon * . Review of Systems - Medications/Allergies Allergies/Adverse Reactions: Allergies Allergy/AdvReac Type Severity Reaction Status Date / Time No Known Allergies Allergy Verified 01/12/18 20:18 Medications: Current Medications Acetaminophen (Tylenol) 650 mg PO Q4H PRN PRN Reason: Headache/Fever/Mild Pain (1-3) Acetaminophen (Tylenol) 650 mg [place] Q4H PRN PRN Reason: Headache/Fever/Mild Pain (1-3) Albuterol/Ipratropium (Duoneb) 3 ml NEB [id number] [facility] Last Admin: 01/30/18 06:40 Dose: 3 ml Lipase/Protease/Amylase ([place] [id number]) 1 cap FS .PER PROTOCOL PRN PRN Reason: TUBE OCCLUSION PROTOCOL Aspirin (Aspirin Chewable) 81 mg PO DAILY [facility] Last Admin: 01/30/18 08:42 Dose: 81 mg Atorvastatin Calcium (Lipitor) 40 mg PO HS [facility] Last Admin: 01/29/18 20:24 Dose: 40 mg Benztropine Mesylate (Cogentin) 1 mg PO HS [facility] Last Admin: 01/29/18 20:24 Dose: 1 mg Carbidopa/Levodopa (Sinemet 25-100) 1 tab PO BID [facility] Last Admin: 01/30/18 08:42 Dose: 1 tab Dextrose/Water (Dextrose 50%) 25 gm SLOW IVP PRN PRN PRN Reason: Hypoglycemia Enoxaparin Sodium (Lovenox) 40 mg SC 0900 [facility] Last Admin: 12/25/18 08:42 Dose: 40 mg Famotidine (Pepcid) 20 mg SLOW IVP Q12HR [facility] Last Admin: 01/30/18 08:42 Dose: 20 mg Gabapentin (Neurontin) 100 mg PO QAM [facility] Last Admin: 01/30/18 08:42 Dose: 100 mg Gabapentin (Neurontin) 200 mg PO HS [facility] Last Admin: 01/29/18 20:24 Dose: 200 mg Glucagon (Glucagon) 1 mg IM PRN PRN PRN Reason: Hypoglycemia Dextrose/Water (D5w) 1,000 mls @ 0 mls/hr IV .Q0M PRN PRN Reason: Hypoglycemia Levofloxacin 500 mg/ Device 100 mls @ 100 mls/hr IVPB Q24HR [facility] Last Admin: 01/29/18 11:39 Dose: 100 mls Potassium Chloride 40 meq/ (Sodium Chloride) 270 mls @ 135 mls/hr IVPB ASDIR PRN PRN Reason: FOR SERUM K+ 2.5 - 3.5 Potassium Chloride 40 meq/ (Device) 100 mls @ 50 mls/hr IVPB ASDIR PRN PRN Reason: FOR SERUM K+ 2.5 - 3.5 Magnesium Sulfate 1 gm/ Sodium (Chloride) 102 mls @ 102 mls/hr IV PRN PRN PRN Reason: MAG LEVEL 1.4 - 2.0 Magnesium Sulfate 2 gm/ Device 100 mls @ 100 mls/hr IVPB ASDIR PRN PRN Reason: MAGNESIUM < 1.4 Potassium Phosphate 9 mmol/ (Sodium Chloride) 103 mls @ 25.75 mls/hr IVPB ASDIR PRN PRN Reason: Phosphate 1.0-1.8 Potassium Phosphate 12 mmol/ (Sodium Chloride) 254 mls @ 63.5 mls/hr IV ASDIR PRN PRN Reason: Serum phosphate 0.5-0.9 Potassium Phosphate 15 mmol/ (Sodium Chloride) 255 mls @ 63.75 mls/hr IV ASDIR PRN PRN Reason: Serum Phos < 0.5 Sodium Chloride (1/2 Normal Saline) 1,000 mls @ 100 mls/hr IV .Q10H [facility] Last Admin: 01/30/18 08:44 Dose: 1,000 mls Cefepime HCl 2 gm/ Sodium (Chloride) 100 mls @ 200 mls/hr IVPB 0100,1300 [facility] Last Admin: 01/30/18 00:16 Dose: 100 mls Vancomycin HCl 1.5 gm/ Sodium (Chloride) 300 mls @ 200 mls/hr IVPB 0500,1700 [facility] Last Admin: 01/30/18 04:11 Dose: 300 mls Fentanyl Citrate 2,000 mcg/ (Sodium Chloride) 100 mls @ 0 mls/hr IV INF [facility]; Protocol Stop: 02/28/18 13:41 Last Admin: 01/30/18 06:53 Dose: 100 mls Fentanyl Citrate (Fentanyl Bolus) 250 mls @ 0 mls/hr IVPB PRN PRN PRN Reason: Breakthrough pain/agitation Stop: 02/28/18 13:41 Insulin Human Lispro (Humalog) 0 units SC .MODERATE SLIDING SC PRN PRN Reason: Moderate Correctional Scale Insulin Human Lispro (Humalog) 0 units SC .BEDTIME SLIDING SC PRN PRN Reason: Bedtime Correctional Scale Lorazepam (Ativan) 2 mg SLOW IVP Q1H PRN PRN Reason: Breakthrough agitation Stop: 02/28/18 13:41 Magnesium Oxide (Magnesium Oxide) 400 mg PO BIDPRN PRN PRN Reason: FOR SERUM MAG 1.4 - 2.0 Magnesium Oxide (Magnesium Oxide) 800 mg PO PRN PRN PRN Reason: FOR SERUM MAG < 1.4 Methylprednisolone Sodium Succinate (Solu-Medrol) 40 mg IVP DAILY [facility] Last Admin: 01/30/18 08:42 Dose: 40 mg Miscellaneous Medication (Phos-Nak) 1 pkt PO TIDPRN PRN PRN Reason: FOR PHOS LEVEL 1.0 - 1.8 Miscellaneous Medication (Phos-Nak) 2 pkt PO TIDPRN PRN PRN Reason: FOR PHOS LEVEL 0.5 - 1.0 Miscellaneous Medication (Pharmacy To Dose) 1 each IVPB PRN PRN PRN Reason: Pharmacy to dose Morphine Sulfate (Morphine) 2 mg SLOW IVP Q1H PRN PRN Reason: BREAKTHROUGH PAIN/Agitation Stop: 02/28/18 13:44 Ccu Electrolyte (Replacement Protocol) 0 each FS PRN PRN PRN Reason: FOR ELECTROLYTE REPLACEMENT Potassium Chloride (K-Dur) 40 meq PO ASDIR PRN PRN Reason: FOR SERUM K+ 2.5 - 3.5 Potassium Chloride (Klor-Con) 40 meq PER TUBE ASDIR PRN PRN Reason: FOR SERUM K+ 2.5-3.5 Propofol (Diprivan) 1,000 mg IV INF PRN; Protocol PRN Reason: TO ACHIEVE GOAL RASS Stop: 02/28/18 13:41 Propofol (Diprivan Bolus) 20 mg IV Q5MIN PRN PRN Reason: BREAKTHROUGH AGITATION Stop: 02/28/18 13:41 Risperidone (Risperidone) 3 mg PO HS [facility] Last Admin: 01/29/18 20:25 Dose: 3 mg Sodium Bicarbonate (Bicarbonate, Sodium) 650 mg PER TUBE .PER PROTOCOL PRN PRN Reason: ENTERAL TUBE OCCLUSION
--- NOTE | 2018-01-30 17:17 | PRG ---
DATE OF SERVICE: 01/30/2018 SUBJECTIVE: Singh Go is sedated for mechanical ventilation. OBJECTIVE: VITAL SIGNS: Heart rate 108, blood pressure 105/71, respiratory rate is 15, oximetry is 96%. LUNGS: Distant. He has very long expiratory phase. HEART: Regular rhythm. ABDOMEN: Soft. EXTREMITIES: Without asymmetry or significant edema. LABORATORY DATA: Labs have been reviewed. His hemoglobins dropped by approximately a gram at 10.9, his white count stable at 7.2, and platelets 208,000. Electrolytes are normal. Renal functions normal. Chest radiographs were reviewed from yesterday, shows no alveolar infiltrates. I will repeat a repeat a radiograph in the morning. Blood gas has been reviewed, pH 7.3, pCO2 of 56, pO2 of 73. I suspect the biggest problem is facing his COPD on top of his movement disorder and deconditioning. IMPRESSION: 1. Respiratory failure. 2. Chronic obstructive pulmonary disease exacerbation with very prolonged expiratory phase. 3. History of Parkinson disease. 4. Diabetes. 5. Hypertension. 6. History of dementia. PLAN: Slow weaning from mechanical ventilation. Critical care time 30 minutes. Job ID: [id number]
[2018-01-30] MEDS: Atorvastatin Calcium 40 MG TAB PO SCH (21:06)
[2018-01-31] MEDS: fentaNYL Citrate/PF 2,000 MCG in Sodium Chloride 0.9% 60 ML IV SCH (00:34)
[2018-01-31] MEDS: Cefepime 2 GM in Sodium Chloride 0.9% 100 ML IVPB SCH ×2 (01:05→12:27)
[2018-01-31 04:42] LABS: Vancomycin, Trough 27.8 ug/mL
[2018-01-31] MEDS: Vancomycin HCl 1.5 GM in Sodium Chloride 0.9% 250 ML 300 ML IVPB SCH (05:08)
[2018-01-31] MEDS: Sodium Chloride 0.45% 1,000 ML IV SCH (06:26)
[2018-01-31 09:05] LABS: #Lymphocytes 1.6 thou/uL (1.20-3.40); #Monocytes 0.7 thou/uL (0.11-0.59); %Basophils 0.6 % (0.0-1.0); %Eosinophils 0.4 % (0.0-10.0); %Monocytes 9.8 % (0.0-10.0); %Neutrophils 68.3 % (42.0-75.0); Hemoglobin 10.1 g/dL (14.0-18.0); Mean Corpuscular HGB CONC 32.9 g/dL (32.0-36.0); Mean Corpuscular Hemoglobin 30.1 pg (27.0-31.0); Mean Corpuscular Volume 91.6 fL (78.0-98.0); Mean Platelet Volume 6.3 fL (7.4-10.4); Platelet Count 215 thou/uL (130-400); RBC Distribution Width 12.6 % (11.5-14.5); Red Blood Cell (RBC) Count 3.34 mill/uL (4.70-6.10); White Blood Cell (WBC) Count 7.4 thou/uL (4.8-10.8)
[2018-01-31] MEDS: Gabapentin 100 MG CAP PO SCH ×2 (09:31→20:48)
[2018-01-31] MEDS: Enoxaparin Sodium 40 MG/0.4 ML SYRINGE SC SCH (09:31)
[2018-01-31] MEDS: Famotidine/PF 20 mg/2ml Vial SLOW IVP SCH ×2 (09:31→20:48)
[2018-01-31] MEDS: Carbidopa/Levodopa 25-100 mg Tablet PO SCH ×2 (09:31→20:48)
[2018-01-31 09:35] LABS: Anion Gap 10 mmol/L (10-20); BUN (Urea Nitrogen) 31 mg/dL (8.4-25.7); Calc. Creatinine Clearance 81 mL/min (70-130); Calcium 8.8 mg/dL (7.8-10.44); Carbon Dioxide 24 mmol/L (23-31); Chloride 103 mmol/L (98-107); Estimated GFR-MDRD 56; Glucose 119 mg/dL (80-115); Potassium 3.9 mmol/L (3.5-5.1); Sodium 133 mmol/L (136-145)
--- NOTE | 2018-01-31 11:34 | PDOC.PN ---
- Subjective Encounter Start Date: 01/31/18 Encounter Start Time: 08:30 Subjective: on vent, is sedated - Objective Resuscitation Status - Order Detail: 01/29/18 09:32 Resuscitation Status Routine Resuscitation Status: FULL: Full Resuscitation Discussed with: DUNIA is Mrs. Donavan GAVIRIA Reviewed: Yes Vital Signs & Weight: Vital Signs (12 hours) Temp Pulse Resp BP Pulse Ox 01/31/18 10:48 86 112/66 01/31/18 09:57 15 01/31/18 07:51 15 01/31/18 07:18 15 100 01/31/18 07:00 99.8 F H 01/31/18 06:31 88 120/68 01/31/18 06:29 87 11 L 99 01/31/18 06:00 13 01/31/18 04:00 98.9 F 11 L 01/31/18 02:08 104 H 106/67 01/31/18 02:00 13 01/31/18 00:10 108 H 122/77 01/31/18 00:00 98.5 F 12 Weight Admit Weight 229 lb Weight 229 lb 4.492 oz Most Recent Monitor Data Heart Rate from ECG 90 NIBP 111/65 NIBP BP-Mean 80 Respiration from ECG 15 SpO2 97 I&O: 01/30/18 01/31/18 02/01/18 06:59 06:59 06:59 Intake Total 1975.3 3301 160 Output Total 1480 672 245 Balance 495.3 2629 -85 Result Diagrams: 01/31/18 08:23 01/31/18 08:23 Additional Labs: Accuchecks 01/31/18 01/30/18 01/30/18 06:17 23:49 18:23 POC Glucose 133 H 145 H 179 H 01/30/18 12:41 POC Glucose 165 H Phys Exam - Physical Examination HEENT: PERRLA, moist MMs Neck: no JVD, supple Respiratory: no wheezing, no rales Cardiovascular: RRR, no significant murmur Gastrointestinal: soft, non-tender, positive bowel sounds Musculoskeletal: no edema, pulses present Neurological: non-focal, moves all 4 limbs Dx/Plan (1) Acute respiratory failure with hypoxia and hypercapnia Code(s): J96.01 - ACUTE RESPIRATORY FAILURE WITH HYPOXIA; J96.02 - ACUTE RESPIRATORY FAILURE WITH HYPERCAPNIA Status: Acute (2) Acute encephalopathy Code(s): G93.40 - ENCEPHALOPATHY, UNSPECIFIED Status: Acute (3) Muscular deconditioning Code(s): R29.898 - OTH SYMPTOMS AND SIGNS INVOLVING THE MUSCULOSKELETAL SYSTEM Status: Chronic (4) Anemia, normocytic normochromic Code(s): D64.9 - ANEMIA, UNSPECIFIED Status: Chronic (5) Dementia Code(s): F03.90 - UNSPECIFIED DEMENTIA WITHOUT BEHAVIORAL DISTURBANCE Status: Chronic Qualifiers: Dementia type: Parkinson's disease (6) Obesity (BMI 30.0-34.9) Code(s): E66.9 - OBESITY, UNSPECIFIED Status: Chronic (7) Parkinson disease Code(s): G20 - PARKINSON'S DISEASE Status: Chronic - Plan weaning per pulm adv -: is on cefepime, levaq, nebs, steroids -: continue sinemet, neurontin, is off risperdal -: suggest portable cxr today * . Review of Systems - Medications/Allergies Allergies/Adverse Reactions: Allergies Allergy/AdvReac Type Severity Reaction Status Date / Time No Known Allergies Allergy Verified 01/12/18 20:18 Medications: Current Medications Acetaminophen (Tylenol) 650 mg PO Q4H PRN PRN Reason: Headache/Fever/Mild Pain (1-3) Acetaminophen (Tylenol) 650 mg [place] Q4H PRN PRN Reason: Headache/Fever/Mild Pain (1-3) Albuterol/Ipratropium (Duoneb) 3 ml NEB [id number] [facility] Last Admin: 01/31/18 06:29 Dose: 3 ml Lipase/Protease/Amylase ([place] [id number]) 1 cap FS .PER PROTOCOL PRN PRN Reason: TUBE OCCLUSION PROTOCOL Aspirin (Aspirin Chewable) 81 mg PO DAILY [facility] Last Admin: 01/31/18 09:31 Dose: 81 mg Atorvastatin Calcium (Lipitor) 40 mg PO HS [facility] Last Admin: 01/30/18 21:06 Dose: 40 mg Carbidopa/Levodopa (Sinemet 25-100) 1 tab PO BID [facility] Last Admin: 01/31/18 09:31 Dose: 1 tab Dextrose/Water (Dextrose 50%) 25 gm SLOW IVP PRN PRN PRN Reason: Hypoglycemia Enoxaparin Sodium (Lovenox) 40 mg SC 0900 [facility] Last Admin: 01/31/18 09:31 Dose: 40 mg Famotidine (Pepcid) 20 mg SLOW IVP Q12HR [facility] Last Admin: 01/31/18 09:31 Dose: 20 mg Gabapentin (Neurontin) 100 mg PO QAM [facility] Last Admin: 01/31/18 09:31 Dose: 100 mg Gabapentin (Neurontin) 200 mg PO HS [facility] Last Admin: 01/30/18 21:06 Dose: 200 mg Glucagon (Glucagon) 1 mg IM PRN PRN PRN Reason: Hypoglycemia Dextrose/Water (D5w) 1,000 mls @ 0 mls/hr IV .Q0M PRN PRN Reason: Hypoglycemia Levofloxacin 500 mg/ Device 100 mls @ 100 mls/hr IVPB Q24HR [facility] Last Admin: 01/31/18 10:30 Dose: 100 mls Potassium Chloride 40 meq/ (Sodium Chloride) 270 mls @ 135 mls/hr IVPB ASDIR PRN PRN Reason: FOR SERUM K+ 2.5 - 3.5 Potassium Chloride 40 meq/ (Device) 100 mls @ 50 mls/hr IVPB ASDIR PRN PRN Reason: FOR SERUM K+ 2.5 - 3.5 Magnesium Sulfate 1 gm/ Sodium (Chloride) 102 mls @ 102 mls/hr IV PRN PRN PRN Reason: MAG LEVEL 1.4 - 2.0 Magnesium Sulfate 2 gm/ Device 100 mls @ 100 mls/hr IVPB ASDIR PRN PRN Reason: MAGNESIUM < 1.4 Potassium Phosphate 9 mmol/ (Sodium Chloride) 103 mls @ 25.75 mls/hr IVPB ASDIR PRN PRN Reason: Phosphate 1.0-1.8 Potassium Phosphate 12 mmol/ (Sodium Chloride) 254 mls @ 63.5 mls/hr IV ASDIR PRN PRN Reason: Serum phosphate 0.5-0.9 Potassium Phosphate 15 mmol/ (Sodium Chloride) 255 mls @ 63.75 mls/hr IV ASDIR PRN PRN Reason: Serum Phos < 0.5 Sodium Chloride (1/2 Normal Saline) 1,000 mls @ 100 mls/hr IV .Q10H [facility] Last Admin: 01/31/18 06:26 Dose: 1,000 mls Cefepime HCl 2 gm/ Sodium (Chloride) 100 mls @ 200 mls/hr IVPB 0100,1300 [facility] Last Admin: 01/31/18 01:05 Dose: 100 mls Fentanyl Citrate 2,000 mcg/ (Sodium Chloride) 100 mls @ 0 mls/hr IV INF [facility]; Protocol Stop: 02/28/18 13:41 Last Admin: 01/31/18 00:34 Dose: 100 mls Fentanyl Citrate (Fentanyl Bolus) 250 mls @ 0 mls/hr IVPB PRN PRN PRN Reason: Breakthrough pain/agitation Stop: 02/28/18 13:41 Vancomycin HCl 1.5 gm/ Sodium (Chloride) 300 mls @ 200 mls/hr IVPB 0500,1700 [facility] Stop: 01/31/18 17:01 Insulin Human Lispro (Humalog) 0 units SC .MODERATE SLIDING SC PRN PRN Reason: Moderate Correctional Scale Insulin Human Lispro (Humalog) 0 units SC .BEDTIME SLIDING SC PRN PRN Reason: Bedtime Correctional Scale Lorazepam (Ativan) 2 mg SLOW IVP Q1H PRN PRN Reason: Breakthrough agitation Stop: 02/28/18 13:41 Magnesium Oxide (Magnesium Oxide) 400 mg PO BIDPRN PRN PRN Reason: FOR SERUM MAG 1.4 - 2.0 Magnesium Oxide (Magnesium Oxide) 800 mg PO PRN PRN PRN Reason: FOR SERUM MAG < 1.4 Methylprednisolone Sodium Succinate (Solu-Medrol) 40 mg IVP DAILY [facility] Last Admin: 01/31/18 09:31 Dose: 40 mg Miscellaneous Medication (Phos-Nak) 1 pkt PO TIDPRN PRN PRN Reason: FOR PHOS LEVEL 1.0 - 1.8 Miscellaneous Medication (Phos-Nak) 2 pkt PO TIDPRN PRN PRN Reason: FOR PHOS LEVEL 0.5 - 1.0 Miscellaneous Medication (Pharmacy To Dose) 1 each IVPB PRN PRN PRN Reason: Pharmacy to dose Morphine Sulfate (Morphine) 2 mg SLOW IVP Q1H PRN PRN Reason: BREAKTHROUGH PAIN/Agitation Stop: 02/28/18 13:44 Ccu Electrolyte (Replacement Protocol) 0 each FS PRN PRN PRN Reason: FOR ELECTROLYTE REPLACEMENT Potassium Chloride (K-Dur) 40 meq PO ASDIR PRN PRN Reason: FOR SERUM K+ 2.5 - 3.5 Potassium Chloride (Klor-Con) 40 meq PER TUBE ASDIR PRN PRN Reason: FOR SERUM K+ 2.5-3.5 Propofol (Diprivan) 1,000 mg IV INF PRN; Protocol PRN Reason: TO ACHIEVE GOAL RASS Stop: 02/28/18 13:41 Propofol (Diprivan Bolus) 20 mg IV Q5MIN PRN PRN Reason: BREAKTHROUGH AGITATION Stop: 02/28/18 13:41 Sodium Bicarbonate (Bicarbonate, Sodium) 650 mg PER TUBE .PER PROTOCOL PRN PRN Reason: ENTERAL TUBE OCCLUSION
[2018-01-31] MEDS: HumaLOG 300 UNITS/3 ML VIAL SC PRN ×2 (12:28→17:19)
[2018-01-31] MEDS ORDERED: Furosemide 40 MG/4 ML VIAL SLOW IVP SCH (13:00)
--- NOTE | 2018-01-31 13:07 | PRG ---
DATE OF SERVICE: 01/31/2018 SERVICE: Pulmonary Medicine. INTERVAL HISTORY: The patient is doing fine from respiratory standpoint. He is breathing comfortably. There has been no interval change to his condition. He has a slightly prolonged expiratory phase. He cannot provide any additional elements of the history. Nursing reports no overnight events. PHYSICAL EXAMINATION: VITAL SIGNS: Afebrile, pulse 99, blood pressure 117/63, respirations 13, and saturation 92% on 27% FiO2 and a PEEP of 5. GENERAL: The patient is awake and alert, in no apparent distress. He is breathing comfortably on mechanical ventilation. HEENT: Normocephalic and atraumatic. Sclerae white. Conjunctivae pink. Oral mucosa is moist without lesions. LUNGS: Decent air entry with a prolonged expiratory phase. Crackles and wheezing are both present. HEART: Normal rate, regular. ABDOMEN: Soft, nontender, and nondistended. Bowel sounds are positive. MUSCULOSKELETAL: No cyanosis or clubbing. There is trace pitting in the bilateral lower extremities. He has good skin turgor today. GENITOURINARY: Douglas catheter in place. NEUROLOGIC: Grossly nonfocal. LABORATORY DATA: WBC 7.4, hemoglobin 10.1, and platelets 215,000. Creatinine 1.27. Basic metabolic profile is otherwise unremarkable today. Sodium is 133 and downtrending. Urinalysis is positive for white blood cells. Vancomycin trough is at 27.8. Urine culture is positive for Streptococcus. Respiratory culture is positive for Staph aureus. Blood cultures are both negative x2. ASSESSMENT: 1. Acute hypoxic respiratory failure. 2. Severe sepsis. 3. Urinary tract infection. 4. Healthcare-associated pneumonia. 5. Chronic diastolic heart failure. DISCUSSION AND PLAN: We will add nebulized medications and a brief course of steroids. I will put him on a spontaneous breathing trial. I give him a single dose of Lasix and interrupt his half-normal saline. Pulmonary Critical Care will continue to follow. If he meets criteria, extubation will be considered. CRITICAL CARE TIME: 30 minutes. Job ID: [id number]
[2018-01-31 15:16] LABS: Vancomycin, Random 20.5 ug/mL (See Comment)
[2018-01-31] MEDS ORDERED: Vancomycin HCl 1.5 GM in Sodium Chloride 0.9% 250 ML 300 ML IVPB SCH (17:00)
[2018-01-31] MEDS: Vancomycin HCl 1 GM in Premix Bag 1 BAG IVPB SCH (17:11)
[2018-01-31] MEDS: Atorvastatin Calcium 40 MG TAB PO SCH (20:48)
[2018-01-31] MEDS: Propofol 1,000 MG/100 ML VIAL IV PRN (20:55)
[2018-02-01] MEDS: Cefepime 2 GM in Sodium Chloride 0.9% 100 ML IVPB SCH ×2 (00:05→12:09)
[2018-02-01] MEDS: Propofol 1,000 MG/100 ML VIAL IV PRN (02:35)
[2018-02-01] MEDS: Vancomycin HCl 1 GM in Premix Bag 1 BAG IVPB SCH (04:33)
[2018-02-01 06:58] LABS: Anion Gap 12 mmol/L (10-20); BUN (Urea Nitrogen) 31 mg/dL (8.4-25.7); Calc. Creatinine Clearance 105 mL/min (70-130); Calcium 9.1 mg/dL (7.8-10.44); Carbon Dioxide 26 mmol/L (23-31); Chloride 103 mmol/L (98-107); Estimated GFR-MDRD 73; Glucose 144 mg/dL (80-115); Potassium 3.6 mmol/L (3.5-5.1); Sodium 137 mmol/L (136-145)
[2018-02-01] MEDS: Famotidine/PF 20 mg/2ml Vial SLOW IVP SCH (12:05)
[2018-02-01] MEDS: Carbidopa/Levodopa 25-100 mg Tablet PO SCH ×2 (12:15→19:52)
[2018-02-01] MEDS: Gabapentin 100 MG CAP PO SCH ×2 (12:15→19:53)
--- NOTE | 2018-02-01 14:02 | PDOC.PN ---
- Subjective Encounter Start Date: 02/01/18 Encounter Start Time: 11:00 Subjective: awake on vent -: is seen moving all extremities - Objective Resuscitation Status - Order Detail: 01/29/18 09:32 Resuscitation Status Routine Resuscitation Status: FULL: Full Resuscitation Discussed with: DUNIA is Mrs. Donavan GAVIRIA Reviewed: Yes Vital Signs & Weight: Vital Signs (12 hours) Temp Pulse Resp BP Pulse Ox 02/01/18 10:48 118 H 22 H 96 02/01/18 08:00 98.5 F 17 02/01/18 06:27 104 H 122/72 02/01/18 06:24 103 H 14 99 02/01/18 06:00 10 L 02/01/18 04:00 97.9 F 15 02/01/18 02:09 113 H 114/65 Weight Admit Weight 229 lb Weight 236 lb 5.369 oz Most Recent Monitor Data Heart Rate from ECG 103 NIBP 163/86 NIBP BP-Mean 111 Respiration from ECG 16 SpO2 95 I&O: 01/31/18 02/01/18 02/02/18 06:59 06:59 06:59 Intake Total 3301 3042 Output Total 672 3020 220 Balance 2629 22 -220 Result Diagrams: 01/31/18 08:23 02/01/18 05:50 Additional Labs: Accuchecks 02/01/18 01/31/18 01/31/18 05:35 23:58 17:17 POC Glucose 118 H 121 H 179 H Phys Exam - Physical Examination HEENT: PERRLA, sclera anicteric Neck: no JVD, supple Respiratory: no wheezing, no rales Cardiovascular: RRR, no significant murmur Gastrointestinal: soft, non-tender, positive bowel sounds Musculoskeletal: no edema, pulses present Neurological: non-focal, moves all 4 limbs Dx/Plan (1) Acute respiratory failure with hypoxia and hypercapnia Code(s): J96.01 - ACUTE RESPIRATORY FAILURE WITH HYPOXIA; J96.02 - ACUTE RESPIRATORY FAILURE WITH HYPERCAPNIA Status: Acute (2) Acute encephalopathy Code(s): G93.40 - ENCEPHALOPATHY, UNSPECIFIED Status: Acute (3) Muscular deconditioning Code(s): R29.898 - OTH SYMPTOMS AND SIGNS INVOLVING THE MUSCULOSKELETAL SYSTEM Status: Chronic (4) Anemia, normocytic normochromic Code(s): D64.9 - ANEMIA, UNSPECIFIED Status: Chronic (5) Dementia Code(s): F03.90 - UNSPECIFIED DEMENTIA WITHOUT BEHAVIORAL DISTURBANCE Status: Chronic Qualifiers: Dementia type: Parkinson's disease (6) Obesity (BMI 30.0-34.9) Code(s): E66.9 - OBESITY, UNSPECIFIED Status: Chronic (7) Parkinson disease Code(s): G20 - PARKINSON'S DISEASE Status: Chronic - Plan weaning per pulm advice -: is on vanc and cefepime -: nebs, steroids -: continue sinemet, asp and lipitor -: PT to work with him on bed * . Review of Systems - Medications/Allergies Allergies/Adverse Reactions: Allergies Allergy/AdvReac Type Severity Reaction Status Date / Time No Known Allergies Allergy Verified 01/12/18 20:18 Medications: Current Medications Acetaminophen (Tylenol) 650 mg PO Q4H PRN PRN Reason: Headache/Fever/Mild Pain (1-3) Acetaminophen (Tylenol) 650 mg [place] Q4H PRN PRN Reason: Headache/Fever/Mild Pain (1-3) Albuterol/Ipratropium (Duoneb) 3 ml NEB [id number] [facility] Last Admin: 02/01/18 06:24 Dose: 3 ml Lipase/Protease/Amylase (Liliana Romo [id number]) 1 cap FS .PER PROTOCOL PRN PRN Reason: TUBE OCCLUSION PROTOCOL Aspirin (Aspirin Chewable) 81 mg PO DAILY [facility] Last Admin: 02/01/18 12:15 Dose: 81 mg Atorvastatin Calcium (Lipitor) 40 mg PO HS [facility] Last Admin: 01/31/18 20:48 Dose: 40 mg Carbidopa/Levodopa (Sinemet 25-100) 1 tab PO BID [facility] Last Admin: 02/01/18 12:15 Dose: 1 tab Dextrose/Water (Dextrose 50%) 25 gm SLOW IVP PRN PRN PRN Reason: Hypoglycemia Enoxaparin Sodium (Lovenox) 40 mg SC 0900 [facility] Last Admin: 01/31/18 09:31 Dose: 40 mg Gabapentin (Neurontin) 100 mg PO QAM [facility] Last Admin: 02/01/18 12:15 Dose: 100 mg Gabapentin (Neurontin) 200 mg PO HS [facility] Last Admin: 01/31/18 20:48 Dose: 200 mg Glucagon (Glucagon) 1 mg IM PRN PRN PRN Reason: Hypoglycemia Dextrose/Water (D5w) 1,000 mls @ 0 mls/hr IV .Q0M PRN PRN Reason: Hypoglycemia Potassium Chloride 40 meq/ (Sodium Chloride) 270 mls @ 135 mls/hr IVPB ASDIR PRN PRN Reason: FOR SERUM K+ 2.5 - 3.5 Potassium Chloride 40 meq/ (Device) 100 mls @ 50 mls/hr IVPB ASDIR PRN PRN Reason: FOR SERUM K+ 2.5 - 3.5 Magnesium Sulfate 1 gm/ Sodium (Chloride) 102 mls @ 102 mls/hr IV PRN PRN PRN Reason: MAG LEVEL 1.4 - 2.0 Magnesium Sulfate 2 gm/ Device 100 mls @ 100 mls/hr IVPB ASDIR PRN PRN Reason: MAGNESIUM < 1.4 Potassium Phosphate 9 mmol/ (Sodium Chloride) 103 mls @ 25.75 mls/hr IVPB ASDIR PRN PRN Reason: Phosphate 1.0-1.8 Potassium Phosphate 12 mmol/ (Sodium Chloride) 254 mls @ 63.5 mls/hr IV ASDIR PRN PRN Reason: Serum phosphate 0.5-0.9 Potassium Phosphate 15 mmol/ (Sodium Chloride) 255 mls @ 63.75 mls/hr IV ASDIR PRN PRN Reason: Serum Phos < 0.5 Levofloxacin 750 mg/ Device 150 mls @ 100 mls/hr IVPB Q24HR [facility] Insulin Human Lispro (Humalog) 0 units SC .MODERATE SLIDING SC PRN PRN Reason: Moderate Correctional Scale Last Admin: 01/31/18 17:19 Dose: 2 units Insulin Human Lispro (Humalog) 0 units SC .BEDTIME SLIDING SC PRN PRN Reason: Bedtime Correctional Scale Magnesium Oxide (Magnesium Oxide) 400 mg PO BIDPRN PRN PRN Reason: FOR SERUM MAG 1.4 - 2.0 Magnesium Oxide (Magnesium Oxide) 800 mg PO PRN PRN PRN Reason: FOR SERUM MAG < 1.4 Miscellaneous Medication (Phos-Nak) 1 pkt PO TIDPRN PRN PRN Reason: FOR PHOS LEVEL 1.0 - 1.8 Miscellaneous Medication (Phos-Nak) 2 pkt PO TIDPRN PRN PRN Reason: FOR PHOS LEVEL 0.5 - 1.0 Miscellaneous Medication (Pharmacy To Dose) 1 each IVPB PRN PRN PRN Reason: Pharmacy to dose Ccu Electrolyte (Replacement Protocol) 0 each FS PRN PRN PRN Reason: FOR ELECTROLYTE REPLACEMENT Potassium Chloride (K-Dur) 40 meq PO ASDIR PRN PRN Reason: FOR SERUM K+ 2.5 - 3.5 Potassium Chloride (Klor-Con) 40 meq PER TUBE ASDIR PRN PRN Reason: FOR SERUM K+ 2.5-3.5 Potassium Chloride (Klor-Con) 40 meq PO NOW [facility] Stop: 02/01/18 16:00 Prednisone (Prednisone) 40 mg PO [facility] Stop: 02/03/18 08:01 Sodium Bicarbonate (Bicarbonate, Sodium) 650 mg PER TUBE .PER PROTOCOL PRN PRN Reason: ENTERAL TUBE OCCLUSION
--- NOTE | 2018-02-01 14:21 | PRG ---
DATE OF SERVICE: 02/01/2018 SERVICE: Pulmonary Medicine. INTERVAL HISTORY: The patient is doing well from a respiratory standpoint. This morning, he was placed on spontaneous breathing trial. He did really well with this. As such, we are preparing for extubation. He cannot provide any additional elements of the history in his current state. There were no significant overnight events. PHYSICAL EXAMINATION: VITAL SIGNS: Afebrile, pulse 118, blood pressure 163/86, respirations 16, and saturation 95% on 23% FiO2 and a PEEP of 5. GENERAL: The patient is awake and alert. He is in no distress. He is breathing slowly and comfortably. He is able to pull very large tidal volumes. There is no accessory muscle use. HEENT: Normocephalic and atraumatic. Sclerae white. Conjunctivae pink. Oral mucosa is moist without lesions. LUNGS: Excellent air entry. Dependent crackles are not present. HEART: Normal rate and regular. ABDOMEN: Soft, nontender, nondistended. Bowel sounds are positive. MUSCULOSKELETAL: No cyanosis or clubbing. Trace pitting is present in bilateral lower extremities. NEUROLOGIC: Grossly nonfocal. LABORATORY DATA: WBC 7.4, hemoglobin 10.1, platelets 215,000. Basic metabolic profile is unremarkable. Creatinine has improved to 1.01. Potassium 3.6. Bronchial washing is growing Staph aureus, this is sensitive to methicillin. Blood cultures x2 are unremarkable. Urinalysis is growing nonhemolytic streptococcus. ASSESSMENT: 1. Acute hypoxic respiratory failure, improving. 2. Severe sepsis. 3. Urinary tract infection. 4. Healthcare-associated pneumonia secondary to methicillin-susceptible Staphylococcus aureus. 5. Chronic diastolic heart failure. DISCUSSION AND PLAN: We will let the patient complete a sedation holiday and spontaneous breathing trial. If he meets criteria, extubation will be considered. We will replace his potassium. If he extubates well, we will start mobilizing him, and replace his potassium. Pulmonary Critical Care will continue to follow along while the patient remains in the ICU, but I would like for him to stay here for one additional night. CRITICAL CARE TIME: 30 minutes. Job ID: [id number]
[2018-02-01] MEDS: Enoxaparin Sodium 40 MG/0.4 ML SYRINGE SC SCH (16:50)
[2018-02-01] MEDS ORDERED: Haloperidol Lactate 5 MG/ML VIAL SLOW IVP SCH (18:45)
[2018-02-01] MEDS: Atorvastatin Calcium 40 MG TAB PO SCH (19:52)
[2018-02-01] MEDS: Labetalol HCl 100 MG/20 ML VIAL SLOW IVP PRN (21:07)
[2018-02-01] MEDS: Haloperidol Lactate 5 MG/ML VIAL SLOW IVP PRN (23:06)
[2018-02-02] MEDS: Haloperidol Lactate 5 MG/ML VIAL SLOW IVP PRN (03:18)
[2018-02-02] MEDS ORDERED: Sterile Water 10 ML ONE (08:48)
[2018-02-02] MEDS ORDERED: Ziprasidone 20 MG VIAL ONE (08:48)
[2018-02-02] MEDS: Carbidopa/Levodopa 25-100 mg Tablet PO SCH ×3 (08:52→21:51)
[2018-02-02] MEDS: Gabapentin 100 MG CAP PO SCH ×3 (08:52→21:51)
[2018-02-02] MEDS: predniSONE 20 MG TAB PO SCH ×2 (08:52→21:12)
[2018-02-02] MEDS: Enoxaparin Sodium 40 MG/0.4 ML SYRINGE SC SCH (08:53)
[2018-02-02] MEDS: Labetalol HCl 100 MG/20 ML VIAL SLOW IVP PRN ×14 (10:19→23:58)
[2018-02-02] MEDS ORDERED: Sterile Water 10 ML VIAL FS SCH (10:30)
[2018-02-02] MEDS ORDERED: Ziprasidone 20 MG VIAL IM SCH (10:30)
--- NOTE | 2018-02-02 10:30 | PDOC.PN ---
- Subjective Encounter Start Date: 02/02/18 Encounter Start Time: 09:40 Subjective: is agitated this morning, trying to climb out of bed -: not in resp distress -: is not taking oral meds per staff - Objective Resuscitation Status - Order Detail: 01/29/18 09:32 Resuscitation Status Routine Resuscitation Status: FULL: Full Resuscitation Discussed with: DUNIA is Mrs. Donavan GAVIRIA Reviewed: Yes Vital Signs & Weight: Vital Signs (12 hours) Temp Pulse BP Pulse Ox 02/02/18 10:19 98 237/124 H 02/02/18 07:00 98.5 F 02/02/18 04:00 98 02/02/18 03:00 99.1 F 02/01/18 23:00 98.0 F Weight Admit Weight 229 lb Weight 233 lb 3.985 oz Most Recent Monitor Data Heart Rate from ECG 101 NIBP 182/102 NIBP BP-Mean 128 Respiration from ECG 16 SpO2 94 I&O: 02/01/18 02/02/18 02/03/18 06:59 06:59 06:59 Intake Total 3042 414 58.1 Output Total 3020 2340 165 Balance 22 -1926 -106.9 Result Diagrams: 01/31/18 08:23 02/01/18 05:50 Additional Labs: Accuchecks 02/02/18 02/01/18 05:26 23:15 POC Glucose 100 130 H Phys Exam - Physical Examination HEENT: PERRLA, moist MMs Neck: no JVD, supple Respiratory: no wheezing, no rales rhonchi+ Cardiovascular: RRR, no significant murmur Gastrointestinal: soft, non-tender, positive bowel sounds Musculoskeletal: no edema, pulses present Neurological: non-focal, moves all 4 limbs Dx/Plan (1) Acute respiratory failure with hypoxia and hypercapnia Code(s): J96.01 - ACUTE RESPIRATORY FAILURE WITH HYPOXIA; J96.02 - ACUTE RESPIRATORY FAILURE WITH HYPERCAPNIA Status: Acute Comment: extubated 2018 (2) Acute encephalopathy Code(s): G93.40 - ENCEPHALOPATHY, UNSPECIFIED Status: Acute (3) Muscular deconditioning Code(s): R29.898 - OTH SYMPTOMS AND SIGNS INVOLVING THE MUSCULOSKELETAL SYSTEM Status: Chronic (4) Anemia, normocytic normochromic Code(s): D64.9 - ANEMIA, UNSPECIFIED Status: Chronic (5) Dementia Code(s): F03.90 - UNSPECIFIED DEMENTIA WITHOUT BEHAVIORAL DISTURBANCE Status: Chronic Qualifiers: Dementia type: Parkinson's disease (6) Obesity (BMI 30.0-34.9) Code(s): E66.9 - OBESITY, UNSPECIFIED Status: Chronic (7) Parkinson disease Code(s): G20 - PARKINSON'S DISEASE Status: Chronic - Plan will add his home dose of risperdal from pm -: one dose geodon now, watch for resp depression -: encourage po intake, nebs, levaquin -: sinemet home dose -: PT to mobilize more as tolerated, will need placement * . Review of Systems - Medications/Allergies Allergies/Adverse Reactions: Allergies Allergy/AdvReac Type Severity Reaction Status Date / Time No Known Allergies Allergy Verified 01/12/18 20:18 Medications: Current Medications Acetaminophen (Tylenol) 650 mg PO Q4H PRN PRN Reason: Headache/Fever/Mild Pain (1-3) Acetaminophen (Tylenol) 650 mg AR Q4H PRN PRN Reason: Headache/Fever/Mild Pain (1-3) Albuterol/Ipratropium (Duoneb) 3 ml NEB [id number] [facility] Last Admin: 02/02/18 00:05 Dose: Not Given Lipase/Protease/Amylase (Liliana Romo [id number]) 1 cap FS .PER PROTOCOL PRN PRN Reason: TUBE OCCLUSION PROTOCOL Aspirin (Aspirin Chewable) 81 mg PO DAILY [facility] Last Admin: 02/02/18 08:52 Dose: 81 mg Atorvastatin Calcium (Lipitor) 40 mg PO HS [facility] Last Admin: 02/01/18 19:52 Dose: 40 mg Carbidopa/Levodopa (Sinemet 25-100) 1 tab PO BID [facility] Last Admin: 02/02/18 08:52 Dose: 1 tab Dextrose/Water (Dextrose 50%) 25 gm SLOW IVP PRN PRN PRN Reason: Hypoglycemia Enoxaparin Sodium (Lovenox) 40 mg SC 0900 [facility] Last Admin: 02/02/18 08:53 Dose: 40 mg Gabapentin (Neurontin) 100 mg PO QAM [facility] Last Admin: 02/02/18 08:52 Dose: 100 mg Gabapentin (Neurontin) 200 mg PO HS [facility] Last Admin: 02/01/18 19:53 Dose: 200 mg Glucagon (Glucagon) 1 mg IM PRN PRN PRN Reason: Hypoglycemia Haloperidol Lactate (Haldol) 5 mg SLOW IVP Q4H PRN PRN Reason: Agitation Last Admin: 02/02/18 03:18 Dose: 5 mg Dextrose/Water (D5w) 1,000 mls @ 0 mls/hr IV .Q0M PRN PRN Reason: Hypoglycemia Potassium Chloride 40 meq/ (Sodium Chloride) 270 mls @ 135 mls/hr IVPB ASDIR PRN PRN Reason: FOR SERUM K+ 2.5 - 3.5 Potassium Chloride 40 meq/ (Device) 100 mls @ 50 mls/hr IVPB ASDIR PRN PRN Reason: FOR SERUM K+ 2.5 - 3.5 Magnesium Sulfate 1 gm/ Sodium (Chloride) 102 mls @ 102 mls/hr IV PRN PRN PRN Reason: MAG LEVEL 1.4 - 2.0 Magnesium Sulfate 2 gm/ Device 100 mls @ 100 mls/hr IVPB ASDIR PRN PRN Reason: MAGNESIUM < 1.4 Potassium Phosphate 9 mmol/ (Sodium Chloride) 103 mls @ 25.75 mls/hr IVPB ASDIR PRN PRN Reason: Phosphate 1.0-1.8 Potassium Phosphate 12 mmol/ (Sodium Chloride) 254 mls @ 63.5 mls/hr IV ASDIR PRN PRN Reason: Serum phosphate 0.5-0.9 Potassium Phosphate 15 mmol/ (Sodium Chloride) 255 mls @ 63.75 mls/hr IV ASDIR PRN PRN Reason: Serum Phos < 0.5 Levofloxacin 750 mg/ Device 150 mls @ 100 mls/hr IVPB Q24HR [facility] Last Admin: 02/01/18 16:22 Dose: 150 mls Dexmedetomidine HCl 400 mcg/ (Sodium Chloride) 100 mls @ 0 mls/hr IVPB INF [facility] ; Protocol Last Admin: 02/02/18 06:36 Dose: 100 mls Insulin Human Lispro (Humalog) 0 units SC .MODERATE SLIDING SC PRN PRN Reason: Moderate Correctional Scale Last Admin: 01/31/18 17:19 Dose: 2 units Insulin Human Lispro (Humalog) 0 units SC .BEDTIME SLIDING SC PRN PRN Reason: Bedtime Correctional Scale Labetalol HCl (Normodyne) 20 mg SLOW IVP Q15MIN PRN PRN Reason: SBP > 180 Last Admin: 02/02/18 10:19 Dose: 20 mg Magnesium Oxide (Magnesium Oxide) 400 mg PO BIDPRN PRN PRN Reason: FOR SERUM MAG 1.4 - 2.0 Magnesium Oxide (Magnesium Oxide) 800 mg PO PRN PRN PRN Reason: FOR SERUM MAG < 1.4 Miscellaneous Medication (Phos-Nak) 1 pkt PO TIDPRN PRN PRN Reason: FOR PHOS LEVEL 1.0 - 1.8 Miscellaneous Medication (Phos-Nak) 2 pkt PO TIDPRN PRN PRN Reason: FOR PHOS LEVEL 0.5 - 1.0 Miscellaneous Medication (Pharmacy To Dose) 1 each IVPB PRN PRN PRN Reason: Pharmacy to dose Ccu Electrolyte (Replacement Protocol) 0 each FS PRN PRN PRN Reason: FOR ELECTROLYTE REPLACEMENT Potassium Chloride (K-Dur) 40 meq PO ASDIR PRN PRN Reason: FOR SERUM K+ 2.5 - 3.5 Potassium Chloride (Klor-Con) 40 meq PER TUBE ASDIR PRN PRN Reason: FOR SERUM K+ 2.5-3.5 Prednisone (Prednisone) 40 mg PO QA[facility] Stop: 02/03/18 08:01 Last Admin: 02/02/18 08:52 Dose: 40 mg Sodium Bicarbonate (Bicarbonate, Sodium) 650 mg PER TUBE .PER PROTOCOL PRN PRN Reason: ENTERAL TUBE OCCLUSION Sterile Water (Water For Injection) 10 ml FS NOW [facility] Stop: 02/02/18 12:00 Ziprasidone (Geodon) 20 mg IM NOW [facility] Stop: 02/02/18 12:00
[2018-02-02] MEDS: Sodium Chloride 0.45% 1,000 ML IV SCH (14:20)
--- NOTE | 2018-02-02 14:47 | PRG ---
DATE OF SERVICE: 02/02/2018 SERVICE: Pulmonary Medicine. INTERVAL HISTORY: The patient is doing fine from respiratory standpoint. Cardiovascular munguia, things are good. He is clearing his infection beautifully. The biggest issue in him is his mentation issues. He is very agitated. He is delirious. He has very advanced dementia, and he is hard to redirect. Otherwise, there has been no interval change to his condition. He cannot provide any additional elements of the history. PHYSICAL EXAMINATION: VITAL SIGNS: Afebrile, pulse 100, blood pressure 229/117, respirations 20, saturation 99% on 4 L nasal cannula. GENERAL: The patient is awake and alert, in no apparent distress. LUNGS: Decent air entry. I do not hear a prolonged expiratory phase or wheezing today. HEART: Normal rate, regular. ABDOMEN: Soft, nontender, and nondistended. Bowel sounds are positive. MUSCULOSKELETAL: No cyanosis or clubbing. There is no pitting in the bilateral lower extremities. NEUROLOGIC: Grossly nonfocal. LABORATORY DATA: Potassium 3.6. Basic metabolic profile is otherwise unremarkable. Creatinine is downtrending to 1.01. Staph aureus is growing in the respiratory culture. Nonhemolytic Streptococcus is growing in the urine culture, but blood cultures x2 remain unremarkable. ASSESSMENT: 1. Acute hypoxic respiratory failure, improving. 2. Severe sepsis. 3. Urinary tract infection secondary to Streptococcus. 4. Healthcare-associated pneumonia secondary to methicillin-susceptible Staphylococcus aureus. 5. Chronic diastolic heart failure. 6. Delirium. 7. 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 DISCUSSION AND PLAN: We will try to modify some of his medications for blood pressure control and agitation. He will need to remain in the ICU until he is a little bit more settled from a mentation standpoint as his nursing requirements are quite elevated at this point. We will need to give him some gentle hydration, and we will continue our levofloxacin which should cover both our and pulmonary issue. He will need a total duration of 10 days of antibiotics (6 additional days). Job ID: [id number]
[2018-02-02] MEDS ORDERED: Potassium Chloride 40 MEQ in Sodium Chloride 0.9% 250 ML 250 ML IVPB SCH (15:00)
[2018-02-02] MEDS: Lorazepam 2 MG/ML VIAL SLOW IVP PRN ×3 (15:01→21:49)
[2018-02-02] MEDS ORDERED: cloNIDine 0.1mg/24 Hour PATCH TD SCH (18:00)
[2018-02-02] MEDS: risperiDONE 1 MG TAB PO SCH (21:51)
[2018-02-02] MEDS: Atorvastatin Calcium 40 MG TAB PO SCH (21:51)
[2018-02-03] MEDS: Labetalol HCl 100 MG/20 ML VIAL SLOW IVP PRN ×5 (01:24→07:08)
[2018-02-03] MEDS: Sodium Chloride 0.45% 1,000 ML IV SCH ×2 (03:30→13:32)
[2018-02-03 05:36] LABS: Anion Gap 14 mmol/L (10-20); BUN (Urea Nitrogen) 25 mg/dL (8.4-25.7); Calc. Creatinine Clearance 127 mL/min (70-130); Calcium 9.2 mg/dL (7.8-10.44); Carbon Dioxide 25 mmol/L (23-31); Chloride 105 mmol/L (98-107); Estimated GFR-MDRD Greater than 90; Glucose 84 mg/dL (80-115); Potassium 3.8 mmol/L (3.5-5.1); Sodium 140 mmol/L (136-145)
[2018-02-03 05:47] LABS: Phosphorus 2.5 mg/dL (2.3-4.7)
[2018-02-03] MEDS: Lorazepam 2 MG/ML VIAL SLOW IVP PRN ×2 (07:08→11:35)
[2018-02-03] MEDS: Enoxaparin Sodium 40 MG/0.4 ML SYRINGE SC SCH (09:39)
[2018-02-03] MEDS: Benztropine 1 MG TAB PO SCH (11:33)
[2018-02-03] MEDS: Carbidopa/Levodopa 25-100 mg Tablet PO SCH ×2 (11:33→23:16)
[2018-02-03] MEDS: Gabapentin 100 MG CAP PO SCH ×2 (11:34→23:16)
--- NOTE | 2018-02-03 12:06 | PDOC.PN ---
- Subjective Encounter Start Date: 02/03/18 Encounter Start Time: 09:40 Subjective: is resting comfortably now, got ativan for anxiety/agitation this am -: spo2 is >90% on nasal canula - Objective Resuscitation Status - Order Detail: 01/29/18 09:32 Resuscitation Status Routine Resuscitation Status: FULL: Full Resuscitation Discussed with: DUNIA is Mrs. Donavan GAVIRIA Reviewed: Yes Vital Signs & Weight: Vital Signs (12 hours) Temp Pulse Resp BP Pulse Ox 02/03/18 07:31 96 02/03/18 07:08 84 211/126 H 02/03/18 07:00 97.9 F 02/03/18 06:56 94 L 02/03/18 06:55 82 16 02/03/18 06:20 86 200/118 H 02/03/18 06:04 92 206/122 H 02/03/18 04:00 98.4 F 02/03/18 02:01 87 204/115 H 02/03/18 01:24 91 188/104 H Weight Admit Weight 229 lb Weight 225 lb 12.054 oz Most Recent Monitor Data Heart Rate from ECG 85 NIBP 145/87 NIBP BP-Mean 106 Respiration from ECG 16 SpO2 99 I&O: 02/02/18 02/03/18 02/04/18 06:59 06:59 06:59 Intake Total 414 1559.1 30 Output Total 2340 1495 80 Balance -1926 64.1 -50 Result Diagrams: 01/31/18 08:23 02/03/18 04:14 Additional Labs: Accuchecks 02/03/18 02/03/18 02/02/18 10:19 04:26 22:40 POC Glucose 98 93 107 02/02/18 17:43 POC Glucose 117 H Phys Exam - Physical Examination HEENT: PERRLA, sclera anicteric Neck: no JVD, supple Respiratory: no wheezing, no rales Cardiovascular: RRR, no significant murmur Gastrointestinal: soft, non-tender, positive bowel sounds Musculoskeletal: no edema, pulses present Neurological: non-focal, moves all 4 limbs Dx/Plan (1) Acute respiratory failure with hypoxia and hypercapnia Code(s): J96.01 - ACUTE RESPIRATORY FAILURE WITH HYPOXIA; J96.02 - ACUTE RESPIRATORY FAILURE WITH HYPERCAPNIA Status: Acute Comment: extubated 2018 (2) Acute encephalopathy Code(s): G93.40 - ENCEPHALOPATHY, UNSPECIFIED Status: Acute (3) Muscular deconditioning Code(s): R29.898 - OTH SYMPTOMS AND SIGNS INVOLVING THE MUSCULOSKELETAL SYSTEM Status: Chronic (4) Anemia, normocytic normochromic Code(s): D64.9 - ANEMIA, UNSPECIFIED Status: Chronic (5) Dementia Code(s): F03.90 - UNSPECIFIED DEMENTIA WITHOUT BEHAVIORAL DISTURBANCE Status: Chronic Qualifiers: Dementia type: Parkinson's disease (6) Obesity (BMI 30.0-34.9) Code(s): E66.9 - OBESITY, UNSPECIFIED Status: Chronic (7) Parkinson disease Code(s): G20 - PARKINSON'S DISEASE Status: Chronic - Plan on risperdal, cogentin -: nebs, levaquin -: has underlying mood disorder, parkinsons, ptsd along with current sickness -: is compounding issues at present -: OOB to chair * . Review of Systems - Medications/Allergies Allergies/Adverse Reactions: Allergies Allergy/AdvReac Type Severity Reaction Status Date / Time No Known Allergies Allergy Verified 01/12/18 20:18 Medications: Current Medications Acetaminophen (Tylenol) 650 mg PO Q4H PRN PRN Reason: Headache/Fever/Mild Pain (1-3) Acetaminophen (Tylenol) 650 mg [place] Q4H PRN PRN Reason: Headache/Fever/Mild Pain (1-3) Albuterol/Ipratropium (Duoneb) 3 ml NEB [id number] [facility] Last Admin: 02/03/18 06:55 Dose: 3 ml Lipase/Protease/[place] ([place] [id number]) 1 cap FS .PER PROTOCOL PRN PRN Reason: TUBE OCCLUSION PROTOCOL Aspirin (Aspirin Chewable) 81 mg PO DAILY [facility] Last Admin: 02/03/18 11:33 Dose: Not Given Atorvastatin Calcium (Lipitor) 40 mg PO HS [facility] Last Admin: 02/02/18 21:51 Dose: Not Given Benztropine Mesylate (Cogentin) 1 mg PO DAILY [facility] Last Admin: 02/03/18 11:33 Dose: Not Given Carbidopa/Levodopa (Sinemet 25-100) 1 tab PO BID [facility] Last Admin: 02/03/18 11:33 Dose: Not Given Clonidine ([id number]-8 Patch) 0.1 mg TD Q7D [facility] Last Admin: 02/02/18 17:22 Dose: 0.1 mg Dextrose/Water (Dextrose 50%) 25 gm SLOW IVP PRN PRN PRN Reason: Hypoglycemia Enoxaparin Sodium (Lovenox) 40 mg SC 0900 [facility] Last Admin: 02/03/18 09:39 Dose: 40 mg Gabapentin (Neurontin) 100 mg PO QAM [facility] Last Admin: 02/03/18 11:34 Dose: Not Given Gabapentin (Neurontin) 200 mg PO HS [facility] Last Admin: 02/02/18 21:51 Dose: Not Given Glucagon (Glucagon) 1 mg IM PRN PRN PRN Reason: Hypoglycemia Dextrose/Water (D5w) 1,000 mls @ 0 mls/hr IV .Q0M PRN PRN Reason: Hypoglycemia Levofloxacin 750 mg/ Device 150 mls @ 100 mls/hr IVPB Q24HR [facility] Last Admin: 02/02/18 15:01 Dose: 150 mls Sodium Chloride (1/2 Normal Saline) 1,000 mls @ 75 mls/hr IV .[id number] [facility] Last Admin: 02/03/18 03:30 Dose: 1,000 mls Insulin Human Lispro (Humalog) 0 units SC .MODERATE SLIDING SC PRN PRN Reason: Moderate Correctional Scale Last Admin: 01/31/18 17:19 Dose: 2 units Insulin Human Lispro (Humalog) 0 units SC .BEDTIME SLIDING SC PRN PRN Reason: Bedtime Correctional Scale Labetalol HCl (Normodyne) 20 mg SLOW IVP Q15MIN PRN PRN Reason: SBP > 180 Last Admin: 02/03/18 07:08 Dose: 20 mg Lorazepam (Ativan) 1 mg SLOW IVP Q1H PRN PRN Reason: Anxiety/Agitation Last Admin: 02/03/18 11:35 Dose: 1 mg Risperidone (Risperidone) 2 mg PO HS [facility] Last Admin: 02/02/18 21:51 Dose: Not Given Sodium Chloride (Flush - Normal Saline) 10 ml IVF Q12HR [facility] Last Admin: 02/03/18 11:34 Dose: 10 ml Sodium Chloride (Flush - Normal Saline) 10 ml IVF PRN PRN PRN Reason: Saline Flush Last Admin: 02/03/18 11:34 Dose: 10 ml
--- NOTE | 2018-02-03 13:23 | PRG ---
DATE OF SERVICE: 02/03/2018 SERVICE: Pulmonary Medicine. INTERVAL HISTORY: The patient is doing fine from a respiratory standpoint. Breathing comfortably. He is currently encephalopathic secondary to Ativan. He is very agitated from [id number]. This interposed with long periods of sedation. PHYSICAL EXAMINATION: VITAL SIGNS: Afebrile, pulse 82, blood pressure 173/100, respirations 22, and saturation 94% on 2 L nasal cannula. GENERAL: The patient is awake and alert, in no apparent distress. LUNGS: Decent air entry. Rhonchi and crackles are both present. HEART: Normal rate, regular. ABDOMEN: Soft, nontender, and nondistended. Bowel sounds are positive. MUSCULOSKELETAL: No cyanosis or clubbing. There is no trace pitting in bilateral lower extremities. NEUROLOGIC: Grossly Nonfocal. LABORATORY DATA: Sodium 144,. Basic metabolic profile is otherwise unremarkable. Creatinine continues to trend downward. Magnesium and phosphorous fall within the normal limits. Staph aureus is growing in the respiratory culture and Streptococcus is growing in the urine. ASSESSMENT: 1. Acute hypoxic respiratory failure. 2. Severe sepsis. 3. Urinary tract infection secondary to Streptococcus. 4. Healthcare-associated pneumonia secondary to methicillin-susceptible Staphylococcus aureus. 5. Chronic diastolic heart failure. 6. Delirium. 7. 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 DISCUSSION AND PLAN: We will transition the patient out of the ICU and try to minimize interventions to him through time. We will send him to the medical unit, where there is no telemetry. Douglas catheter to be removed today and we will put him in a diaper. We will try to mobilize him and get him out of bed and into a chair on a daily basis and have him work with Physical Therapy through time. The Levaquin should cover both the and the pulmonary issue. He will need 5 additional days of antibiotics. Pulmonary will continue to follow. Job ID: [id number]
[2018-02-03] MEDS: Atorvastatin Calcium 40 MG TAB PO SCH (23:16)
[2018-02-03] MEDS: risperiDONE 1 MG TAB PO SCH (23:16)
[2018-02-04] MEDS: Labetalol HCl 100 MG/20 ML VIAL SLOW IVP PRN ×4 (00:58→20:35)
[2018-02-04] MEDS: Lorazepam 2 MG/ML VIAL SLOW IVP PRN ×2 (01:21→08:55)
[2018-02-04] MEDS: Enoxaparin Sodium 40 MG/0.4 ML SYRINGE SC SCH (08:55)
[2018-02-04] MEDS: Benztropine 1 MG TAB PO SCH (08:56)
[2018-02-04] MEDS: Carbidopa/Levodopa 25-100 mg Tablet PO SCH ×2 (08:56→20:28)
[2018-02-04] MEDS: Gabapentin 100 MG CAP PO SCH ×2 (08:57→20:28)
[2018-02-04] MEDS: Sodium Chloride 0.45% 1,000 ML IV SCH ×3 (09:03→20:27)
--- NOTE | 2018-02-04 13:43 | PDOC.PN ---
- Subjective Encounter Start Date: 02/04/18 Encounter Start Time: 08:00 Subjective: sleeping, awakens easily, not oriented -: has not eaten so far - Objective Resuscitation Status - Order Detail: 01/29/18 09:32 Resuscitation Status Routine Resuscitation Status: FULL: Full Resuscitation Discussed with: DUNIA is Mrs. Donavan GAVIRIA Reviewed: Yes Vital Signs & Weight: Vital Signs (12 hours) Temp Pulse Resp BP BP Pulse Ox Pulse Ox 02/04/18 10:32 94 L 02/04/18 05:35 187/94 H 02/04/18 04:44 90 207/102 H 02/04/18 04:35 98.1 F 90 20 97 02/04/18 01:46 174/82 H Weight Admit Weight 229 lb Weight 225 lb 12.054 oz Most Recent Monitor Data Heart Rate from ECG 83 NIBP 139/88 NIBP BP-Mean 105 Respiration from ECG 16 SpO2 97 I&O: 02/03/18 02/04/18 02/05/18 06:59 06:59 06:59 Intake Total 1559.1 230 Output Total 1495 290 Balance 64.1 -60 Result Diagrams: 01/31/18 08:23 02/03/18 04:14 Additional Labs: Accuchecks 02/04/18 02/03/18 02/03/18 11:52 20:32 16:21 POC Glucose 96 100 105 Phys Exam - Physical Examination HEENT: PERRLA dry mucosa Neck: no JVD, supple Respiratory: no wheezing, no rales rhonchi+ Cardiovascular: RRR, no significant murmur Gastrointestinal: soft, non-tender, positive bowel sounds Musculoskeletal: no edema, pulses present Neurological: non-focal, moves all 4 limbs Dx/Plan (1) Acute respiratory failure with hypoxia and hypercapnia Code(s): J96.01 - ACUTE RESPIRATORY FAILURE WITH HYPOXIA; J96.02 - ACUTE RESPIRATORY FAILURE WITH HYPERCAPNIA Status: Acute Comment: extubated 2018 (2) Acute encephalopathy Code(s): G93.40 - ENCEPHALOPATHY, UNSPECIFIED Status: Acute (3) Muscular deconditioning Code(s): R29.898 - OTH SYMPTOMS AND SIGNS INVOLVING THE MUSCULOSKELETAL SYSTEM Status: Chronic (4) Anemia, normocytic normochromic Code(s): D64.9 - ANEMIA, UNSPECIFIED Status: Chronic (5) Dementia Code(s): F03.90 - UNSPECIFIED DEMENTIA WITHOUT BEHAVIORAL DISTURBANCE Status: Chronic Qualifiers: Dementia type: Parkinson's disease (6) Obesity (BMI 30.0-34.9) Code(s): E66.9 - OBESITY, UNSPECIFIED Status: Chronic (7) Parkinson disease Code(s): G20 - PARKINSON'S DISEASE Status: Chronic - Plan still encephalopathic -: plan is to interact and wake him up from 11am, encourage po intake -: oral care, PT to mobilize as tolerated -: he is not taking any oral meds, on clonidine tts, may add nitropaste -: asp, levaquin, nebs. Prognosis guarded * . Review of Systems - Medications/Allergies Allergies/Adverse Reactions: Allergies Allergy/AdvReac Type Severity Reaction Status Date / Time No Known Allergies Allergy Verified 01/12/18 20:18 Medications: Current Medications Acetaminophen (Tylenol) 650 mg PO Q4H PRN PRN Reason: Headache/Fever/Mild Pain (1-3) Acetaminophen (Tylenol) 650 mg [place] Q4H PRN PRN Reason: Headache/Fever/Mild Pain (1-3) Albuterol/Ipratropium (Duoneb) 3 ml NEB [id number] [facility] Last Admin: 02/04/18 10:56 Dose: Not Given Lipase/Protease/Amylase (Liliana Romo [id number]) 1 cap FS .PER PROTOCOL PRN PRN Reason: TUBE OCCLUSION PROTOCOL Aspirin (Aspirin Chewable) 81 mg PO DAILY [facility] Last Admin: 02/04/18 08:56 Dose: Not Given Atorvastatin Calcium (Lipitor) 40 mg PO HS [facility] Last Admin: 02/03/18 23:16 Dose: Not Given Benztropine Mesylate (Cogentin) 1 mg PO DAILY [facility] Last Admin: 02/04/18 08:56 Dose: Not Given Carbidopa/Levodopa (Sinemet 25-100) 1 tab PO BID [facility] Last Admin: 02/04/18 08:56 Dose: Not Given Clonidine (Fdoinbor-Kkt-3 Patch) 0.1 mg TD Q7D [facility] Last Admin: 02/02/18 17:22 Dose: 0.1 mg Dextrose/Water (Dextrose 50%) 25 gm SLOW IVP PRN PRN PRN Reason: Hypoglycemia Enoxaparin Sodium (Lovenox) 40 mg SC 0900 [facility] Last Admin: 02/04/18 08:55 Dose: 40 mg Gabapentin (Neurontin) 100 mg PO QAM [facility] Last Admin: 02/04/18 08:57 Dose: Not Given Gabapentin (Neurontin) 200 mg PO HS [facility] Last Admin: 02/03/18 23:16 Dose: Not Given Glucagon (Glucagon) 1 mg IM PRN PRN PRN Reason: Hypoglycemia Dextrose/Water (D5w) 1,000 mls @ 0 mls/hr IV .Q0M PRN PRN Reason: Hypoglycemia Levofloxacin 750 mg/ Device 150 mls @ 100 mls/hr IVPB Q24HR [facility] Stop: 02/08/18 14:01 Last Admin: 02/03/18 15:01 Dose: 150 mls Sodium Chloride (1/2 Normal Saline) 1,000 mls @ 50 mls/hr IV .Q20H [facility] Last Admin: 02/04/18 09:03 Dose: Not Given Insulin Human Lispro (Humalog) 0 units SC .MODERATE SLIDING SC PRN PRN Reason: Moderate Correctional Scale Last Admin: 01/31/18 17:19 Dose: 2 units Insulin Human Lispro (Humalog) 0 units SC .BEDTIME SLIDING SC PRN PRN Reason: Bedtime Correctional Scale Labetalol HCl (Normodyne) 20 mg SLOW IVP Q15MIN PRN PRN Reason: SBP > 180 Last Admin: 02/04/18 04:44 Dose: 20 mg Lorazepam (Ativan) 1 mg SLOW IVP Q1H PRN PRN Reason: Anxiety/Agitation Last Admin: 02/04/18 08:55 Dose: 1 mg Risperidone (Risperidone) 2 mg PO HS [facility] Last Admin: 02/03/18 23:16 Dose: Not Given Sodium Chloride (Flush - Normal Saline) 10 ml IVF Q12HR [facility] Last Admin: 02/04/18 08:57 Dose: Not Given Sodium Chloride (Flush - Normal Saline) 10 ml IVF PRN PRN PRN Reason: Saline Flush Last Admin: 02/03/18 11:34 Dose: 10 ml
--- NOTE | 2018-02-04 18:41 | PRG ---
DATE OF SERVICE: 02/04/2018 SERVICE: Pulmonary Medicine. INTERVAL HISTORY: The patient is doing fine from respiratory standpoint. Breathing comfortably. Denies any current chest pain, fevers, or chills. Otherwise, there has been no interval change to his condition. He remains a little bit encephalopathic. PHYSICAL EXAMINATION: VITAL SIGNS: Afebrile, pulse 94, blood pressure 187/94, respirations 14, and saturation 94% on 2 L nasal cannula. GENERAL: The patient is awake and alert, in no apparent distress. LUNGS: Decent air entry. No dependent crackles are present. There are no rhonchi appreciated. HEART: Normal rate and regular. ABDOMEN: Soft, nontender, and nondistended. Bowel sounds are positive. MUSCULOSKELETAL: No cyanosis or clubbing. There is no pitting in the bilateral lower extremities. He has skin tenting throughout. NEUROLOGIC: Grossly nonfocal. LABORATORY DATA: Bronchial washings were growing Staph aureus. Urine cultures are growing nonhemolytic Streptococcus. Blood cultures x2 remain unremarkable. ASSESSMENT: 1. Acute hypoxic respiratory failure, improving. 2. Severe sepsis. 3. Urinary tract infection secondary to Streptococcus. 4. Healthcare-associated pneumonia secondary to methicillin-susceptible Staph aureus. 5. Chronic diastolic heart failure. 6. Delirium. 7. Dementia, secondary to Parkinson disease. DISCUSSION AND PLAN: Once again, the patient is getting a touch dry. As such, we will initiate some IV fluids. We will continue to focus on mobilizing the patient through time. From a purely respiratory standpoint, the patient is stable for transition out of the hospital. We will give him a touch of IV fluids overnight. Pulmonary Critical Care will continue to follow, intermittently during hospital stay. If Mr. Go gets into trouble, please call sooner. Job ID: [id number] [facility]
[2018-02-04] MEDS: Atorvastatin Calcium 40 MG TAB PO SCH (20:28)
[2018-02-04] MEDS: risperiDONE 1 MG TAB PO SCH (20:29)
[2018-02-05] MEDS: hydrALAZINE 20 MG/ML VIAL SLOW IVP PRN (00:24)
[2018-02-05] MEDS: Sodium Chloride 0.45% 1,000 ML IV SCH ×2 (03:53→22:17)
[2018-02-05 07:05] LABS: Anion Gap 14 mmol/L (10-20); BUN (Urea Nitrogen) 20 mg/dL (8.4-25.7); Calc. Creatinine Clearance 139 mL/min (70-130); Calcium 8.9 mg/dL (7.8-10.44); Carbon Dioxide 25 mmol/L (23-31); Chloride 106 mmol/L (98-107); Estimated GFR-MDRD Greater than 90; Glucose 97 mg/dL (80-115); Potassium 3.3 mmol/L (3.5-5.1); Sodium 142 mmol/L (136-145)
[2018-02-05 07:19] LABS: Phosphorus 1.8 mg/dL (2.3-4.7)
[2018-02-05] MEDS: Gabapentin 100 MG CAP PO SCH ×2 (08:55→22:21)
[2018-02-05] MEDS: Carbidopa/Levodopa 25-100 mg Tablet PO SCH ×2 (08:55→22:21)
[2018-02-05] MEDS: Benztropine 1 MG TAB PO SCH (08:55)
[2018-02-05] MEDS: Enoxaparin Sodium 40 MG/0.4 ML SYRINGE SC SCH (10:05)
--- NOTE | 2018-02-05 11:03 | PDOC.PN ---
- Subjective Encounter Start Date: 02/05/18 Encounter Start Time: 10:00 Subjective: awake, not oriented -: no resp distress -: has not eaten anything from last 3 days now - Objective Resuscitation Status - Order Detail: 01/29/18 09:32 Resuscitation Status Routine Resuscitation Status: FULL: Full Resuscitation Discussed with: DUNIA is Mrs. Donavan GAVIRIA Reviewed: Yes Vital Signs & Weight: Vital Signs (12 hours) Temp Pulse Resp BP Pulse Ox 02/05/18 08:00 94 L 02/05/18 07:48 97.9 F 84 24 H 192/97 H 94 L 02/05/18 07:24 97 20 92 L 02/05/18 03:48 97.7 F 96 20 167/110 H 94 L 02/05/18 01:39 89 176/109 H 02/04/18 23:38 97.6 F 82 16 189/103 H 95 Weight Admit Weight 229 lb Weight 224 lb 3.2 oz Most Recent Monitor Data Heart Rate from ECG 83 NIBP 139/88 NIBP BP-Mean 105 Respiration from ECG 16 SpO2 97 I&O: 02/04/18 02/05/18 02/06/18 06:59 06:59 06:59 Intake Total 230 900 Output Total 290 Balance -60 900 Result Diagrams: 01/31/18 08:23 02/05/18 06:18 Additional Labs: Accuchecks 02/05/18 02/04/18 02/04/18 03:52 20:27 16:39 POC Glucose 103 97 100 02/04/18 02/04/18 11:52 04:39 POC Glucose 96 91 Phys Exam - Physical Examination HEENT: PERRLA dry mucosa Neck: no JVD, supple Respiratory: no wheezing, no rales Cardiovascular: RRR, no significant murmur Gastrointestinal: soft, non-tender, positive bowel sounds Musculoskeletal: no edema, pulses present Neurological: non-focal, moves all 4 limbs Dx/Plan (1) Acute respiratory failure with hypoxia and hypercapnia Code(s): J96.01 - ACUTE RESPIRATORY FAILURE WITH HYPOXIA; J96.02 - ACUTE RESPIRATORY FAILURE WITH HYPERCAPNIA Status: Acute Comment: extubated 2018 (2) Acute encephalopathy Code(s): G93.40 - ENCEPHALOPATHY, UNSPECIFIED Status: Acute (3) Muscular deconditioning Code(s): R29.898 - OTH SYMPTOMS AND SIGNS INVOLVING THE MUSCULOSKELETAL SYSTEM Status: Chronic (4) Anemia, normocytic normochromic Code(s): D64.9 - ANEMIA, UNSPECIFIED Status: Chronic (5) Dementia Code(s): F03.90 - UNSPECIFIED DEMENTIA WITHOUT BEHAVIORAL DISTURBANCE Status: Chronic Qualifiers: Dementia type: Parkinson's disease (6) Obesity (BMI 30.0-34.9) Code(s): E66.9 - OBESITY, UNSPECIFIED Status: Chronic (7) Parkinson disease Code(s): G20 - PARKINSON'S DISEASE Status: Chronic - Plan still encephalopathic and not eating anything -: is on 1/2 ns, electrolytes and renal function holding up -: on levaquin -: speech consult, oob to chair with PT -: will need 1:1 sitter, has high risk of falls/encephalopathic * . Review of Systems - Medications/Allergies Allergies/Adverse Reactions: Allergies Allergy/AdvReac Type Severity Reaction Status Date / Time No Known Allergies Allergy Verified 01/12/18 20:18 Medications: Current Medications Acetaminophen (Tylenol) 650 mg PO Q4H PRN PRN Reason: Headache/Fever/Mild Pain (1-3) Acetaminophen (Tylenol) 650 mg [place] Q4H PRN PRN Reason: Headache/Fever/Mild Pain (1-3) Albuterol/Ipratropium (Duoneb) 3 ml NEB [id number] [facility] Last Admin: 02/05/18 07:24 Dose: 3 ml Lipase/Protease/Amylase ([place] [address]) 1 cap FS .PER PROTOCOL PRN PRN Reason: TUBE OCCLUSION PROTOCOL Aspirin (Aspirin Chewable) 81 mg PO DAILY [facility] Last Admin: 02/05/18 08:55 Dose: Not Given Atorvastatin Calcium (Lipitor) 40 mg PO HS [facility] Last Admin: 02/04/18 20:28 Dose: Not Given Benztropine Mesylate (Cogentin) 1 mg PO DAILY [facility] Last Admin: 02/05/18 08:55 Dose: Not Given Carbidopa/Levodopa (Sinemet 25-100) 1 tab PO BID [facility] Last Admin: 02/05/18 08:55 Dose: Not Given Clonidine (Yigbyklo-Blu-6 Patch) 0.1 mg TD Q7D [facility] Last Admin: 02/02/18 17:22 Dose: 0.1 mg Enoxaparin Sodium (Lovenox) 40 mg SC 0900 [facility] Last Admin: 02/05/18 10:05 Dose: 40 mg Gabapentin (Neurontin) 100 mg PO QAM [facility] Last Admin: 02/05/18 08:55 Dose: Not Given Gabapentin (Neurontin) 200 mg PO HS [facility] Last Admin: 02/04/18 20:28 Dose: Not Given Hydralazine HCl (Apresoline) 10 mg SLOW IVP Q4H PRN PRN Reason: SBP Greater Than 180 Last Admin: 02/05/18 00:24 Dose: 10 mg Levofloxacin 750 mg/ Device 150 mls @ 100 mls/hr IVPB Q24HR [facility] Stop: 02/08/18 14:01 Last Admin: 02/04/18 15:27 Dose: 150 mls Sodium Chloride (1/2 Normal Saline) 1,000 mls @ 75 mls/hr IV .[id number] [facility] Last Admin: 02/05/18 03:53 Dose: 1,000 mls Labetalol HCl (Normodyne) 20 mg SLOW IVP Q4H PRN PRN Reason: SBP > 180 Lorazepam (Ativan) 1 mg SLOW IVP Q1H PRN PRN Reason: Anxiety/Agitation Last Admin: 02/04/18 08:55 Dose: 1 mg Risperidone (Risperidone) 2 mg PO HS [facility] Last Admin: 02/04/18 20:29 Dose: Not Given Sodium Chloride (Flush - Normal Saline) 10 ml IVF Q12HR [facility] Last Admin: 02/05/18 08:55 Dose: Not Given Sodium Chloride (Flush - Normal Saline) 10 ml IVF PRN PRN PRN Reason: Saline Flush Last Admin: 02/03/18 11:34 Dose: 10 ml
--- NOTE | 2018-02-05 15:34 | PRG ---
DATE OF SERVICE: 02/05/2018 SUBJECTIVE: The patient is attended to by sitter. It is hard to get any history from other than he is thirsty. OBJECTIVE: VITAL SIGNS: Temperature is 97.9, pulse 80, respirations 20, O2 saturation 94% on 2 L, and blood pressure 165/86. HEENT: Unremarkable. NECK: No JVD. LUNGS: Clear without wheezing. CARDIAC: S1 and S2. Regular. ABDOMEN: Soft. EXTREMITIES: No edema. LABORATORY DATA: Sodium 142, potassium 3.3, chloride 106, CO2 of 25, BUN 20, creatinine 0.7, and glucose 97. ASSESSMENT: 1. Acute hypoxic respiratory failure, improving. 2. Sepsis, improving. 3. Healthcare-associated pneumonia secondary to Staphylococcus aureus. 4. Delirium. PLAN: The patient is currently on Levaquin, breathing treatments, and doing well. His main issue is rehabilitative in nature. Job ID: [id number]
[2018-02-05] MEDS: Labetalol HCl 100 MG/20 ML VIAL SLOW IVP PRN (22:17)
[2018-02-05] MEDS: Atorvastatin Calcium 40 MG TAB PO SCH (22:20)
[2018-02-05] MEDS: risperiDONE 1 MG TAB PO SCH (22:21)
[2018-02-06] MEDS: hydrALAZINE 20 MG/ML VIAL SLOW IVP PRN (00:09)
[2018-02-06] MEDS: Lorazepam 2 MG/ML VIAL SLOW IVP PRN ×2 (01:36→09:25)
[2018-02-06] MEDS: Labetalol HCl 100 MG/20 ML VIAL SLOW IVP PRN ×3 (03:57→21:54)
[2018-02-06] MEDS: Enoxaparin Sodium 40 MG/0.4 ML SYRINGE SC SCH (09:26)
[2018-02-06] MEDS: Gabapentin 100 MG CAP PO SCH ×2 (09:26→21:31)
[2018-02-06] MEDS: Benztropine 1 MG TAB PO SCH (09:26)
[2018-02-06] MEDS: Carbidopa/Levodopa 25-100 mg Tablet PO SCH ×2 (09:27→21:31)
[2018-02-06] MEDS: Sodium Chloride 0.45% 1,000 ML IV SCH ×2 (11:10→14:19)
--- NOTE | 2018-02-06 13:14 | PRG ---
DATE OF SERVICE: 02/06/2018 SUBJECTIVE: This morning, awake and responsive. Denies any difficulty breathing. OBJECTIVE: VITAL SIGNS: Saturations are 93% on 2 L, temperature 98, pulse 88, and blood pressure 196/72. CHEST: Bilateral rhonchi. CARDIAC: Normal S1 and S2. No gallops. ABDOMEN: No masses. IMPRESSION: Respiratory failure, dysphagia, sepsis, delirium. PLAN: Continue antibiotics, PT, supportive care. We will follow. Job ID: [id number]
--- NOTE | 2018-02-06 14:55 | PDOC.PN ---
- Subjective Encounter Start Date: 02/06/18 Encounter Start Time: 14:53 Mr Go was seen today in follow-up of acute respiratory failure and encephalopathy. He is awake and able to answer my questions. his mouth is extremely dry, and his voice is very weak. - Objective Resuscitation Status - Order Detail: 01/29/18 09:32 Resuscitation Status Routine Resuscitation Status: FULL: Full Resuscitation Discussed with: POA is Mrs. Donavan GAVIRIA Reviewed: Yes Vital Signs & Weight: Vital Signs (12 hours) Temp Pulse Resp BP BP Pulse Ox 02/06/18 13:38 98.2 F 84 20 186/78 H 96 02/06/18 11:42 93 L 02/06/18 09:27 98.2 F 88 18 196/72 H 96 02/06/18 09:25 88 196/72 H 02/06/18 08:28 80 18 93 L 02/06/18 08:00 96 02/06/18 03:43 98.0 F 93 18 186/97 H 99 Weight Admit Weight 229 lb Weight 222 lb Most Recent Monitor Data Heart Rate from ECG 83 NIBP 139/88 NIBP BP-Mean 105 Respiration from ECG 16 SpO2 97 I&O: 02/05/18 02/06/18 02/07/18 06:59 06:59 06:59 Intake Total 900 1000 Balance 900 1000 Result Diagrams: 01/31/18 08:23 02/05/18 06:18 Additional Labs: Accuchecks 02/06/18 02/06/18 02/06/18 12:02 10:40 07:00 POC Glucose 103 115 H 96 02/05/18 02/05/18 21:27 16:26 POC Glucose 102 106 Phys Exam - Physical Examination HEENT: PERRLA Respiratory: no wheezing, no rales + scattered rhonchi and upper airway noise. Cardiovascular: RRR, no significant murmur, no rub Gastrointestinal: soft, non-tender, no distention, positive bowel sounds Musculoskeletal: no edema Dx/Plan (1) Acute respiratory failure with hypoxia and hypercapnia Code(s): J96.01 - ACUTE RESPIRATORY FAILURE WITH HYPOXIA; J96.02 - ACUTE RESPIRATORY FAILURE WITH HYPERCAPNIA Status: Acute Comment: extubated 2018 (2) Hospital-acquired pneumonia Code(s): J18.9 - PNEUMONIA, UNSPECIFIED ORGANISM Status: Acute (3) Dysphagia Code(s): R13.10 - DYSPHAGIA, UNSPECIFIED Status: Acute (4) Acute encephalopathy Code(s): G93.40 - ENCEPHALOPATHY, UNSPECIFIED Status: Acute (5) Muscular deconditioning Code(s): R29.898 - [facility] SYMPT[facility] AND SIGNS INVOLVING THE MUSCULOSKELETAL SYSTEM Status: Chronic (6) Chronic diastolic heart failure Code(s): I50.32 - CHRONIC DIASTOLIC (CONGESTIVE) HEART FAILURE Status: Chronic - Plan * Acute respiratory failure- slowly improving. He is currently on Levaquin IV * Encephaloapthy- from review of the chart, based on the earlier descriptions, this is improving * Dysphagia- discussed with Speech Therapy- he is at high risk of aspiration. - will give a trial of NG tube feeding for a day or two, and hopefully if the encephalopathy improves, his swallow will also. If not then will need to address alternate means of nutrition * Chronic diastolic heart failure- compensated * Severe Physical deconditioning- continue PT/OT.
--- NOTE | 2018-02-06 17:41 | RAD ---
SUPINE PORTABLE AP ABDOMINAL RADIOGRAPH 02/06/18 HISTORY: Evaluate nasogastric tube placement. FINDINGS: Dobhoff feeding tube is noted in place which is coiled upon itself and overlying the distal esophagus . Bowel gas pattern is nonspecific. Surgical clips overlie the right upper quadrant. Vertebroplasty markos nges are seen involving the compression fracture of the L1 vertebral body. IMPRESSION: Dobhoff feeding tube noted in place with the tip overlying the distal esophagus. POS: [facility]
[2018-02-06] MEDS: risperiDONE 1 MG TAB PO SCH (21:31)
[2018-02-06] MEDS: Atorvastatin Calcium 40 MG TAB PO SCH (21:31)
[2018-02-07] MEDS: Sodium Chloride 0.45% 1,000 ML IV SCH ×2 (00:40→03:00)
[2018-02-07] MEDS ORDERED: D5W-AA 4.25% with LYTES 1,000 ML BAG IV SCH (08:00)
--- NOTE | 2018-02-07 08:35 | RAD ---
SUPINE RADIOGRAPH ABDOMEN: Date: 02-07-18 Time: 2:03 a.m. History: Replace Dobbhoff tube. FINDINGS: Patchy increased lung interstitial density noted bilaterally. Clips in right upper quadrant suggest prior cholecystectomy. A Dobbhoff tube overlies the right lung base, likely within the right basilar bronchi. IMPRESSION: Dobbhoff tube overlies the right lung base consistent with an intrapulmonary location. Results to gertrude Biggs, patient's nurse, at 7:40 a.m. who reports that the Dobbhoff tube has been removed. POS: [facility]
--- NOTE | 2018-02-07 08:36 | RAD ---
FRONTAL RADIOGRAPH ABDOMEN: Date: 02-07-18 Time: 3:33 a.m. Comparison: 02-07-18 at 2:03 a.m. History: Replace Dobbhoff tube. FINDINGS: Motion artifact limits detailed assessment, particularly at the left lung base. Dobbhoff tube overlie s the right lung base medially, consistent with a location within the lung parenchyma. IMPRESSION: Dobbhoff tube persists within the right lung. Dian, the recovery nurse, was made aware at 7:40 a.m. 02-07-18 and reports that the Dobbhoff tube pimentel s been removed. POS: [facility]
[2018-02-07] MEDS: hydrALAZINE 20 MG/ML VIAL SLOW IVP PRN (10:01)
[2018-02-07] MEDS: Carbidopa/Levodopa 25-100 mg Tablet PO SCH ×2 (10:06→21:50)
[2018-02-07] MEDS: Enoxaparin Sodium 40 MG/0.4 ML SYRINGE SC SCH (10:06)
[2018-02-07] MEDS: Gabapentin 100 MG CAP PO SCH ×2 (10:07→21:47)
[2018-02-07] MEDS: Benztropine 1 MG TAB PO SCH (10:07)
[2018-02-07] MEDS: Labetalol HCl 100 MG/20 ML VIAL SLOW IVP PRN (10:35)
--- NOTE | 2018-02-07 11:10 | PDOC.PN ---
- Subjective Encounter Start Date: 02/07/18 Encounter Start Time: 11:08 Mr. Go was seen today in follow-up. The nursing staff was unsuccessful in the attempt to place the DHT last night. It was placed in the Right bronchial tube. He appear more short of breath, and tachypneic. - Objective Resuscitation Status - Order Detail: 01/29/18 09:32 Resuscitation Status Routine Resuscitation Status: FULL: Full Resuscitation Discussed with: POA is Mrs. Donavan GAVIRIA Reviewed: Yes Vital Signs & Weight: Vital Signs (12 hours) Temp Pulse Resp BP BP Pulse Ox 02/07/18 10:35 104 H 207/108 H 02/07/18 10:01 104 H 206/103 H 02/07/18 10:00 99.7 F H 103 H 24 H 206/103 H 95 02/07/18 07:09 96 20 97 02/07/18 04:00 98.6 F 90 21 H 172/90 H 94 L 02/07/18 00:40 88 22 H 98 02/07/18 00:00 98.5 F 84 21 H 184/96 H 96 Weight Admit Weight 229 lb Weight 220 lb 6 oz Most Recent Monitor Data Heart Rate from ECG 83 NIBP 139/88 NIBP BP-Mean 105 Respiration from ECG 16 SpO2 97 I&O: 02/06/18 02/07/18 02/08/18 06:59 06:59 06:59 Intake Total 2198 Balance 2198 Result Diagrams: 01/31/18 08:23 02/05/18 06:18 Additional Labs: Accuchecks 02/07/18 02/06/18 02/06/18 04:36 20:56 17:22 POC Glucose 128 H 115 H 105 02/06/18 12:02 POC Glucose 103 Phys Exam - Physical Examination HEENT: PERRLA + rales at both bases, left > right Cardiovascular: RRR, no significant murmur, no rub Gastrointestinal: soft, non-tender, no distention, positive bowel sounds Musculoskeletal: edema present Dx/Plan (1) Acute respiratory failure with hypoxia and hypercapnia Code(s): J96.01 - ACUTE RESPIRATORY FAILURE WITH HYPOXIA; J96.02 - ACUTE RESPIRATORY FAILURE WITH HYPERCAPNIA Status: Acute Comment: extubated 2018 (2) Hospital-acquired pneumonia Code(s): J18.9 - PNEUMONIA, UNSPECIFIED ORGANISM Status: Acute (3) Dysphagia Code(s): R13.10 - DYSPHAGIA, UNSPECIFIED Status: Acute (4) Acute encephalopathy Code(s): G93.40 - ENCEPHALOPATHY, UNSPECIFIED Status: Acute (5) Muscular deconditioning Code(s): R29.898 - [facility] SYMPTOMS AND SIGNS INVOLVING THE MUSCULOSKELETAL SYSTEM Status: Chronic (6) Chronic diastolic heart failure Code(s): I50.32 - CHRONIC DIASTOLIC (CONGESTIVE) HEART FAILURE Status: Chronic - Plan * Acute on chronic respiratory failure- will move him to telemetry * Continue Levaquin IV * Dysphagia- will place him on PPN for now, keep him NPO * Severe Muscular deconditioning- continue PT/OT * Metabolic encephalopathy- this waxes and wanes- likely due to this acute illness
[2018-02-07 11:14] LABS: Base Excess (BEa) 5.2 mEq/L (-2.0 to +3.0); CO2 Tension 39.9 mmHg (35.0-45.0); Calcium, Ionized 1.15 mmol/L (1.12-1.30); Carboxyhemoglobin (COHb) 1.1 gm% (0.0-3.0); Hemoglobin (Hb) 11.5 g/dL (14.0-18.0); Potassium - ABG Lab 3.29 mmol/L (3.70-5.30); pH, Arterial 7.48 (7.35-7.45)
[2018-02-07 11:16] LABS: O2 Tension (PaO2) 52.2 mmHg (> 80.0); Puncture Site RRA
[2018-02-07 11:17] LABS: ALV-art Gradient 126.085 (0-20)
[2018-02-07] MEDS ORDERED: cloNIDine 0.2mg/24 Hour PATCH TD SCH (12:00)
--- NOTE | 2018-02-07 16:23 | PRG ---
DATE OF SERVICE: 02/07/2018 SERVICE: Pulmonary Medicine. INTERVAL HISTORY: The patient is doing very poorly from respiratory standpoint. This morning, he has a toxic appearance about him. He is tachypneic and his saturations are marginal. He is tachycardic. He looks uncomfortable. Otherwise, he cannot provide me with any elements of the history. Nursing reports no additional events overnight. PHYSICAL EXAMINATION: VITAL SIGNS: T-max 99.7, pulse 117, blood pressure 175/93, respirations 30, saturation 93% on 4 L nasal cannula. GENERAL: The patient is awake. His eyes are wide open. He does attend, but not following any commands currently. HEENT: Normocephalic and atraumatic. Sclerae white. Conjunctivae pink. Oral mucosa is moist without lesions. LUNGS: Decent air entry. Crackles are present. There is a prolonged expiratory phase, but I do not appreciate any wheezing. HEART: Tachycardic. Regular. ABDOMEN: Soft, nontender, and nondistended. Bowel sounds are positive. MUSCULOSKELETAL: No cyanosis or clubbing. There is no pitting in the bilateral lower extremities. NEUROLOGIC: Grossly nonfocal. LABORATORY DATA: WBC 7.4, hemoglobin 10.1, platelets 215,000. PH 7.48, pCO2 39, PO2 52. Bronchial washings were growing Staph aureus. Urine culture was growing nonhemolytic streptococcus. Previous blood cultures were unremarkable. IMAGING: Abdominal x-ray demonstrates Dobhoff tube in the right lung. ASSESSMENT: 1. Acute hypoxic respiratory failure. 2. Healthcare-associated pneumonia secondary to methicillin-susceptible Staphylococcus aureus, improving. 3. Urinary tract infection secondary to Streptococcus. 4. Severe sepsis. 5. Chronic diastolic heart failure. 6. Delirium. 7. Dementia secondary to Parkinson's disease. 8. Recent malposition of Dobhoff feeding tube. PLAN: Because of the hypoxemia, and tachycardia, we will get a stat chest x-ray. I would like to verify if the right lung is still inflated. Pulmonary/Critical Care will continue to follow along. If he further destabilizes, he will need to be transitioned to the ICU. Job ID: [id number]
--- NOTE | 2018-02-07 18:52 | RAD ---
FRONTAL VIEW CHEST: 02/07/18 COMPARISON: 01/29/18 INDICATION: Tachycardia, hypoxia. FINDINGS: There is pleural based density at the inferior hemithoraces left greater than right with adjacent par enchymal opacity. Enlargement of cardiac silhouette with prominence of pulmonary vasculature noted. S ubtle deformities of the right ribs likely related to sequela from prior injury. Correlate with patie nt's history. IMPRESSION: Findings indicate decompensated CHF. Pleural fluid more notable on the left present and there is biba silar parenchymal density that may relate to atelectasis, pneumonia and/or component of pulmonary ed mona. Recommend continued followup. POS: [facility]
[2018-02-07] MEDS: Atorvastatin Calcium 40 MG TAB PO SCH (21:46)
[2018-02-07] MEDS: risperiDONE 1 MG TAB PO SCH (21:47)
[2018-02-07] MEDS: Nitroglycerin 2% Ointment 1 INCH/1 GM Packet TOP SCH (21:49)
[2018-02-08 08:36] LABS: #Eosinphils 0.1 thou/uL (0.0-0.7); #Lymphocytes 1.1 thou/uL (1.20-3.40); #Monocytes 0.5 thou/uL (0.11-0.59); #Neutrophils 7.2 thou/uL (1.40-6.50); %Basophils 0.5 % (0.0-1.0); %Eosinophils 0.9 % (0.0-10.0); %Lymphocytes 11.9 % (21.0-51.0); %Monocytes 5.4 % (0.0-10.0); %Neutrophils 81.4 % (42.0-75.0); Hemoglobin 9.2 g/dL (14.0-18.0); Mean Corpuscular HGB CONC 33.9 g/dL (32.0-36.0); Mean Corpuscular Hemoglobin 30.2 pg (27.0-31.0); Mean Platelet Volume 6.2 fL (7.4-10.4); Platelet Count 200 thou/uL (130-400); Red Blood Cell (RBC) Count 3.04 mill/uL (4.70-6.10); White Blood Cell (WBC) Count 8.9 thou/uL (4.8-10.8)
[2018-02-08] MEDS: Nitroglycerin 2% Ointment 1 INCH/1 GM Packet TOP SCH ×2 (08:47→23:37)
[2018-02-08] MEDS: Enoxaparin Sodium 40 MG/0.4 ML SYRINGE SC SCH (08:47)
[2018-02-08 08:48] LABS: Anion Gap 11 mmol/L (10-20); BUN (Urea Nitrogen) 18 mg/dL (8.4-25.7); Calc. Creatinine Clearance 133 mL/min (70-130); Calcium 8.8 mg/dL (7.8-10.44); Carbon Dioxide 28 mmol/L (23-31); Chloride 106 mmol/L (98-107); Estimated GFR-MDRD Greater than 90; Glucose 142 mg/dL (80-115); Potassium 3.2 mmol/L (3.5-5.1); Sodium 142 mmol/L (136-145)
[2018-02-08] MEDS ORDERED: Potassium Chloride 40 MEQ in Sodium Chloride 0.9% 250 ML 250 ML IVPB SCH (13:00)
[2018-02-08] MEDS: Carbidopa/Levodopa 25-100 mg Tablet PO SCH ×2 (13:18→23:32)
[2018-02-08] MEDS: Benztropine 1 MG TAB PO SCH (13:21)
[2018-02-08] MEDS: Gabapentin 100 MG CAP PO SCH ×2 (13:21→23:32)
--- NOTE | 2018-02-08 13:25 | PRG ---
DATE OF SERVICE: 02/08/2018 SERVICE: Pulmonary Medicine. INTERVAL HISTORY: The patient is doing fine from respiratory standpoint. Breathing comfortably. There has been no interval change to his condition. Today, he looks quite a bit less toxic. He is breathing comfortably. His heart rate is under much better control. PHYSICAL EXAMINATION: VITAL SIGNS: Afebrile, pulse 90, blood pressure 164/79, respirations 18, and saturation 97% on room air. GENERAL: The patient is awake and alert, in no apparent distress. LUNGS: Decent air entry. Dependent crackles are present. There is no prolonged expiratory phase or wheezing present. HEART: Normal rate and regular. ABDOMEN: Soft, nontender, and nondistended. Bowel sounds are positive. MUSCULOSKELETAL: No cyanosis or clubbing. There is no pitting in the bilateral lower extremities. NEUROLOGIC: Grossly nonfocal. LABORATORY DATA: WBC 8.9, hemoglobin 9.2, and platelets 200,000. Potassium 3.2. Basic metabolic profile is otherwise unremarkable. Bronchial washings are growing Staph aureus. Urine culture is growing nonhemolytic streptococcus. IMAGING STUDIES: Chest x-ray demonstrates no evidence of pneumothorax. Bilateral pleural effusions and pulmonary vascular congestion are present. ASSESSMENT: 1. Acute hypoxic respiratory failure, once again resolved. 2. Healthcare-associated pneumonia secondary to methicillin-susceptible Staphylococcus aureus. 3. Urinary tract infection secondary to Streptococcus. 4. Acute on chronic diastolic heart failure. 5. Delirium. 6. Dementia, secondary to Parkinson disease. DISCUSSION AND PLAN: Potassium will be replaced today. From my perspective, the patient is approaching readiness for discharge from the hospital. He has completed a full course of antibiotic directed at lung issues. He has also completed a course of antibiotics for his urinary tract infection. At this point, his nutrition needs to be sorted out. I will continue to follow for the time being. Agree with continued efforts to diurese him through time. Job ID: [id number]
[2018-02-08] MEDS ORDERED: Lorazepam 2 MG/ML VIAL SLOW IVP PRN (14:28)
--- NOTE | 2018-02-08 15:05 | PDOC.PN ---
- Subjective Encounter Start Date: 02/08/18 Encounter Start Time: 11:15 Mr. Go was seen today in follow-up. He appears significantly better than he did this time yesterday. He is awake, and answering questions. He is still extremely weak despite this improvement. - Objective Resuscitation Status - Order Detail: 01/29/18 09:32 Resuscitation Status Routine Resuscitation Status: FULL: Full Resuscitation Discussed with: POA is Mrs. Donavan GAVIRIA Reviewed: Yes Vital Signs & Weight: Vital Signs (12 hours) Temp Pulse Pulse Pulse Resp BP BP 02/08/18 11:52 87 20 02/08/18 11:26 92 18 02/08/18 10:35 90 97 176/84 H 179/88 H 02/08/18 08:44 98.0 F 90 18 02/08/18 08:25 02/08/18 06:55 95 18 02/08/18 05:30 83 22 H 02/08/18 04:00 98.1 F 87 20 BP Pulse Ox 02/08/18 11:52 97 02/08/18 11:26 177/91 H 94 L 02/08/18 10:35 02/08/18 08:44 164/79 H 94 L 02/08/18 08:25 94 L 02/08/18 06:55 94 L 02/08/18 05:30 175/83 H 02/08/18 04:00 181/82 H 94 L Weight Admit Weight 229 lb Weight 219 lb 9.6 oz Most Recent Monitor Data Heart Rate from ECG 83 NIBP 139/88 NIBP BP-Mean 105 Respiration from ECG 16 SpO2 97 I&O: 02/07/18 02/08/18 02/09/18 06:59 06:59 06:59 Intake Total 2198 681 Balance 2198 681 Result Diagrams: 02/08/18 08:21 02/08/18 08:21 Additional Labs: Accuchecks 02/08/18 02/08/18 02/07/18 12:19 05:48 23:53 POC Glucose 136 H 139 H 129 H Phys Exam - Physical Examination HEENT: PERRLA + rhonchi bilaterally Cardiovascular: RRR, no significant murmur, no rub Gastrointestinal: soft, non-tender, no distention, positive bowel sounds Musculoskeletal: pulses present, edema present 1+ lower extremity edema Dx/Plan (1) Acute respiratory failure with hypoxia and hypercapnia Code(s): J96.01 - ACUTE RESPIRATORY FAILURE WITH HYPOXIA; J96.02 - ACUTE RESPIRATORY FAILURE WITH HYPERCAPNIA Status: Acute Comment: extubated 2018 (2) Hospital-acquired pneumonia Code(s): J18.9 - PNEUMONIA, UNSPECIFIED ORGANISM Status: Acute (3) Dysphagia Code(s): R13.10 - DYSPHAGIA, UNSPECIFIED Status: Acute (4) Acute encephalopathy Code(s): G93.40 - ENCEPHALOPATHY, UNSPECIFIED Status: Acute (5) Muscular deconditioning Code(s): R29.898 - [facility] SYMPTOMS AND SIGNS INVOLVING THE MUSCULOSKELETAL SYSTEM Status: Chronic (6) Chronic diastolic heart failure Code(s): I50.32 - CHRONIC DIASTOLIC (CONGESTIVE) HEART FAILURE Status: Chronic - Plan * Acute respiratory failure- improved overnight- Discussed with Dr. Medina- he may have had some volume overload. * Pneumonia- continue Levaquin * HTN- Catapres was added, and continue Labetalol, and Hydralazine as needed * Dysphagia- will continue PPN , and re-assess his swallow in a day or so * Chronic diastolic heart failure- better compensated * deconditioning- continue PT/OT
[2018-02-08] MEDS ORDERED: D5W-AA 4.25% with LYTES 1,000 ML BAG IV SCH (15:15)
[2018-02-08] MEDS ORDERED: D5W-AA 4.25% with LYTES 1,000 ML IV SCH (15:30)
[2018-02-08] MEDS: Atorvastatin Calcium 40 MG TAB PO SCH (23:32)
[2018-02-08] MEDS: risperiDONE 1 MG TAB PO SCH (23:32)
[2018-02-09] MEDS: Gabapentin 100 MG CAP PO SCH ×2 (08:55→20:17)
[2018-02-09] MEDS: Carbidopa/Levodopa 25-100 mg Tablet PO SCH ×2 (08:55→20:17)
[2018-02-09] MEDS: Enoxaparin Sodium 40 MG/0.4 ML SYRINGE SC SCH (08:55)
[2018-02-09] MEDS: Benztropine 1 MG TAB PO SCH (08:55)
[2018-02-09] MEDS: Nitroglycerin 2% Ointment 1 INCH/1 GM Packet TOP SCH ×2 (08:55→20:16)
--- NOTE | 2018-02-09 10:40 | PRG ---
DATE OF SERVICE: 02/09/2018 SERVICE: Pulmonary Medicine. INTERVAL HISTORY: The patient did okay overnight. There were no reported events on telemetry. He denies any current chest pain, fevers, or chills. He is breathing comfortably. He is pleasantly demented and cannot report any historical elements to me. PHYSICAL EXAMINATION: VITAL SIGNS: Afebrile, pulse 82, blood pressure 145/81, respirations 18, and saturation 95% on 2 L nasal cannula. GENERAL: The patient is awake and alert, in no apparent distress. LUNGS: Decent air entry. There is no prolonged expiratory phase or wheezing present. HEART: Normal rate, regular. ABDOMEN: Soft, nontender, and nondistended. Bowel sounds are positive. MUSCULOSKELETAL: No cyanosis or clubbing. No pitting in bilateral lower extremities. NEUROLOGIC: Grossly nonfocal. LABORATORY DATA: Glucose ranges from 101 to 147. ASSESSMENT: 1. Acute hypoxic respiratory failure, intermittent. 2. Healthcare-associated pneumonia secondary to methicillin-susceptible Staphylococcus aureus, status post full course of therapy. 3. Urinary tract infection secondary to Streptococcus, status post full course of therapy. 4. Chronic diastolic heart failure. 5. Delirium. 6. 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 DISCUSSION AND PLAN: We will repeat laboratories tomorrow morning. The patient needs a room where he can get more sunshine. He has had no events on telemetry for several days. As such, I think it would be reasonable for us to transition him to the Medical Unit, where we can continue our mobilization efforts. At this point, he is stable for transition out of the hospital. Pulmonary will continue to follow while he remains in-house, however. Job ID: [id number]
--- NOTE | 2018-02-09 16:52 | PDOC.PN ---
- Subjective Encounter Start Date: 02/09/18 Encounter Start Time: 10:15 Mr. Go was seen today in follow-up of acute respiratory failure. He is improved from yesterday. He is less confused this morning. He has been able to tolerate some pureed diet. He denies feeling short of breath. - Objective Resuscitation Status - Order Detail: 01/29/18 09:32 Resuscitation Status Routine Resuscitation Status: FULL: Full Resuscitation Discussed with: POA is Mrs. Donavan GAVIRIA Reviewed: Yes Vital Signs & Weight: Vital Signs (12 hours) Temp Pulse Resp BP Pulse Ox 02/09/18 15:49 92 L 02/09/18 14:34 97.4 F L 85 16 180/84 H 92 L 02/09/18 13:08 97.9 F 76 18 171/75 H 99 02/09/18 11:30 90 18 95 02/09/18 08:32 97.6 F 82 18 145/81 H 95 02/09/18 06:38 92 20 98 Weight Admit Weight 229 lb 4.492 oz Weight 222 lb 6.4 oz Most Recent Monitor Data Heart Rate from ECG 83 NIBP 139/88 NIBP BP-Mean 105 Respiration from ECG 16 SpO2 97 I&O: 02/08/18 02/09/18 02/10/18 06:59 06:59 06:59 Intake Total 681 200 Balance 681 200 Result Diagrams: 02/08/18 08:21 02/08/18 08:21 Additional Labs: Accuchecks 02/09/18 02/09/18 02/08/18 12:58 06:02 21:03 POC Glucose 104 114 H 147 H 02/08/18 02/07/18 17:32 11:18 POC Glucose 101 130 H Phys Exam - Physical Examination HEENT: PERRLA Respiratory: no wheezing, no rales, clear to auscultation bilateral + rhonchi Cardiovascular: RRR, no significant murmur, no rub Gastrointestinal: soft, non-tender, no distention, positive bowel sounds Musculoskeletal: pulses present, edema present trace pedal edema Dx/Plan (1) Acute respiratory failure with hypoxia and hypercapnia Code(s): J96.01 - ACUTE RESPIRATORY FAILURE WITH HYPOXIA; J96.02 - ACUTE RESPIRATORY FAILURE WITH HYPERCAPNIA Status: Acute Comment: extubated 2018 (2) Hospital-acquired pneumonia Code(s): J18.9 - PNEUMONIA, UNSPECIFIED ORGANISM Status: Acute (3) Dysphagia Code(s): R13.10 - DYSPHAGIA, UNSPECIFIED Status: Acute (4) Acute encephalopathy Code(s): G93.40 - ENCEPHALOPATHY, UNSPECIFIED Status: Acute (5) Muscular deconditioning Code(s): R29.898 - OTH SYMPTOMS AND SIGNS INVOLVING THE MUSCULOSKELETAL SYSTEM Status: Chronic (6) Chronic diastolic heart failure Code(s): I50.32 - CHRONIC DIASTOLIC (CONGESTIVE) HEART FAILURE Status: Chronic (7) Hypertension Code(s): I10 - ESSENTIAL (PRIMARY) HYPERTENSION Status: Chronic (8) Parkinson disease Code(s): G20 - PARKINSON'S DISEASE Status: Chronic - Plan * Acute Respiratory failure- improved * HTN- blood pressure is elevated, but trending down * Parkinson's disease- stable * Severe deconditioning- continue PT/OT * He can be moved to a medical floor * Stable for transition to [facility].
[2018-02-09] MEDS: Lorazepam 0.5 MG TAB PO PRN (16:56)
[2018-02-09] MEDS ORDERED: Ziprasidone 20 MG VIAL ONE (17:30)
[2018-02-09] MEDS: risperiDONE 1 MG TAB PO SCH (20:17)
[2018-02-09] MEDS: Atorvastatin Calcium 40 MG TAB PO SCH (20:19)
[2018-02-09] MEDS ORDERED: cloNIDine 0.2mg/24 Hour PATCH TD SCH (21:00)
[2018-02-10 06:45] LABS: Hemoglobin 9.7 g/dL (14.0-18.0)
[2018-02-10 06:58] LABS: Anion Gap 11 mmol/L (10-20); BUN (Urea Nitrogen) 17 mg/dL (8.4-25.7); Calc. Creatinine Clearance 146 mL/min (70-130); Calcium 8.7 mg/dL (7.8-10.44); Carbon Dioxide 28 mmol/L (23-31); Chloride 105 mmol/L (98-107); Estimated GFR-MDRD Greater than 90; Glucose 94 mg/dL (80-115); Magnesium 1.7 mg/dL (1.6-2.6); Phosphorus 3.3 mg/dL (2.3-4.7); Potassium 3.3 mmol/L (3.5-5.1); Sodium 141 mmol/L (136-145)
[2018-02-10] MEDS: Enoxaparin Sodium 40 MG/0.4 ML SYRINGE SC SCH (09:17)
[2018-02-10] MEDS: Gabapentin 100 MG CAP PO SCH ×2 (09:17→19:45)
[2018-02-10] MEDS: Benztropine 1 MG TAB PO SCH (09:17)
[2018-02-10] MEDS: Nitroglycerin 2% Ointment 1 INCH/1 GM Packet TOP SCH ×2 (09:17→19:46)
[2018-02-10] MEDS: Carbidopa/Levodopa 25-100 mg Tablet PO SCH ×2 (09:17→20:34)
--- NOTE | 2018-02-10 12:23 | PRG ---
DATE OF SERVICE: 02/10/2018 SUBJECTIVE: The patient is confused but seems to be doing well. OBJECTIVE: VITAL SIGNS: On exam, temperature 98.1, pulse 94, respirations 17, O2 saturation 93% on room air, and blood pressure 118/73. HEENT: Unremarkable. NECK: No adenopathy. No JVD. LUNGS: Fairly clear. CARDIAC: S1 and S2, regular. ABDOMEN: Soft. EXTREMITIES: No edema. LABORATORY DATA: Sodium 141, potassium 3.3, BUN 17, creatinine 0.6, glucose 94. ASSESSMENT: 1. Acute hypoxic respiratory failure. 2. Healthcare-associated pneumonia secondary to methicillin-resistant Staphylococcus aureus. 3. Urinary tract infection. 4. Chronic diastolic heart failure. 5. Delirium. 6. Dementia. PLAN: His encephalopathy is the main issue and appears to be getting better. I have reviewed the orders and agree with current medical regimen. Job ID: [id number]
--- NOTE | 2018-02-10 16:01 | PDOC.PN ---
- Subjective Encounter Start Date: 02/10/18 Encounter Start Time: 16:00 Mr. Go was seen today in follow-up of respiratory failure. He is breathing fine on room air. He is a bit confused, I suspect it may be his baseline - Objective Resuscitation Status - Order Detail: 01/29/18 09:32 Resuscitation Status Routine Resuscitation Status: FULL: Full Resuscitation Discussed with: POA is Mrs. Donavan GAVIRIA Reviewed: Yes Vital Signs & Weight: Vital Signs (12 hours) Temp Pulse Resp BP Pulse Ox 02/10/18 13:30 94 18 93 L 02/10/18 08:00 93 L 02/10/18 07:46 98.1 F 94 17 118/73 93 L 02/10/18 07:21 81 20 91 L Weight Admit Weight 229 lb 4.492 oz Weight 222 lb 6.4 oz Most Recent Monitor Data Heart Rate from ECG 83 NIBP 139/88 NIBP BP-Mean 105 Respiration from ECG 16 SpO2 97 I&O: 02/09/18 02/10/18 02/11/18 06:59 06:59 06:59 Intake Total 200 650 Balance 200 650 Result Diagrams: 02/10/18 06:00 02/10/18 06:00 Additional Labs: Accuchecks 02/10/18 02/10/18 02/10/18 15:26 11:16 04:34 POC Glucose 118 H 105 98 02/09/18 02/09/18 19:30 17:33 POC Glucose 98 105 Phys Exam - Physical Examination HEENT: PERRLA Respiratory: no wheezing, clear to auscultation bilateral Cardiovascular: RRR, no significant murmur, no rub Gastrointestinal: soft, non-tender, no distention, positive bowel sounds Musculoskeletal: no edema Dx/Plan (1) Acute respiratory failure with hypoxia and hypercapnia Code(s): J96.01 - ACUTE RESPIRATORY FAILURE WITH HYPOXIA; J96.02 - ACUTE RESPIRATORY FAILURE WITH HYPERCAPNIA Status: Acute Comment: extubated 2018 (2) Hospital-acquired pneumonia Code(s): J18.9 - PNEUMONIA, UNSPECIFIED ORGANISM Status: Acute (3) Dysphagia Code(s): R13.10 - DYSPHAGIA, UNSPECIFIED Status: Acute (4) Acute encephalopathy Code(s): G93.40 - ENCEPHALOPATHY, UNSPECIFIED Status: Acute (5) Muscular deconditioning Code(s): R29.898 - OT SYMPTOMS AND SIGNS INVOLVING THE MUSCULOSKELETAL SYSTEM Status: Chronic (6) Chronic diastolic heart failure Code(s): I50.32 - CHRONIC DIASTOLIC (CONGESTIVE) HEART FAILURE Status: Chronic (7) Hypertension Code(s): I10 - ESSENTIAL (PRIMARY) HYPERTENSION Status: Chronic (8) Parkinson disease Code(s): G20 - PARKINSON'S DISEASE Status: Chronic - Plan * Acute respiratory failure- improved * Hospital acquired Pneumonia- resolved * Dysphagia- stable * Severe deconditioning- continue PT/OT * Awaiting transfer to [facility].
[2018-02-10] MEDS: Atorvastatin Calcium 40 MG TAB PO SCH (19:45)
[2018-02-10] MEDS: Sterile Water 10 ML VIAL FS PRN (19:50)
[2018-02-10] MEDS: Ziprasidone 20 MG VIAL IM PRN (19:50)
[2018-02-10] MEDS: risperiDONE 1 MG TAB PO SCH (20:34)
[2018-02-11] MEDS: Benztropine 1 MG TAB PO SCH (08:50)
[2018-02-11] MEDS: Carbidopa/Levodopa 25-100 mg Tablet PO SCH ×2 (08:50→20:33)
[2018-02-11] MEDS: Gabapentin 100 MG CAP PO SCH ×2 (08:50→20:33)
[2018-02-11] MEDS: Nitroglycerin 2% Ointment 1 INCH/1 GM Packet TOP SCH ×2 (08:51→20:33)
[2018-02-11] MEDS: Enoxaparin Sodium 40 MG/0.4 ML SYRINGE SC SCH (09:01)
--- NOTE | 2018-02-11 12:39 | PRG ---
DATE OF SERVICE: 02/11/2018 SUBJECTIVE: He is lying in bed, had no complaints. He seems much more alert, oriented than he has been. OBJECTIVE: VITAL SIGNS: On exam, temperature is 97.6, pulse 83, respirations 20, sat 94% on room air, blood pressure 169/84. HEENT: Unremarkable. NECK: No JVD. CHEST: Clear to auscultation. CARDIAC: S1 and S2. Regular. ABDOMEN: Soft. EXTREMITIES: No edema. ASSESSMENT: 1. Delirium, slowly improved. 2. Status post acute hypoxic respiratory failure. 3. Healthcare-associated pneumonia secondary to methicillin-resistant staphylococcus aureus. 4. Urinary tract infection. PLAN: The patient is doing well off antibiotics, main issues now rehabilitative in nature. I do not plan on changing any of his antipsychotic medication at this time. Job ID: [id number]
--- NOTE | 2018-02-11 14:26 | PDOC.PN ---
- Subjective Encounter Start Date: 02/11/18 Encounter Start Time: 14:24 Mr. Go was seen today in follow-up of acute respiratory failure. He does not have any complaints this afternoon. - Objective Resuscitation Status - Order Detail: 01/29/18 09:32 Resuscitation Status Routine Resuscitation Status: FULL: Full Resuscitation Discussed with: POA is Mrs. Donavan GAVIRIA Reviewed: Yes Vital Signs & Weight: Vital Signs (12 hours) Temp Pulse Resp BP BP Pulse Ox 02/11/18 13:21 85 20 02/11/18 12:34 98.5 F 85 20 167/87 H 02/11/18 08:00 97.6 F 83 20 168/94 H 94 L 02/11/18 07:28 95 02/11/18 07:27 84 20 95 02/11/18 04:00 97.6 F 82 20 175/97 H 94 L Weight Admit Weight 229 lb 4.492 oz Weight 222 lb 6.4 oz Most Recent Monitor Data Heart Rate from ECG 83 NIBP 139/88 NIBP BP-Mean 105 Respiration from ECG 16 SpO2 97 I&O: 02/10/18 02/11/18 02/12/18 06:59 06:59 06:59 Intake Total 650 1200 Balance 650 1200 Result Diagrams: 02/10/18 06:00 02/10/18 06:00 Additional Labs: Accuchecks 02/11/18 02/11/18 02/10/18 11:08 04:35 19:18 POC Glucose 111 H 114 H 123 H 02/10/18 15:26 POC Glucose 118 H Phys Exam - Physical Examination HEENT: PERRLA Respiratory: no wheezing, no rales, no rhonchi, clear to auscultation bilateral Cardiovascular: RRR, no significant murmur, no rub Gastrointestinal: soft, non-tender, no distention, positive bowel sounds Musculoskeletal: no edema, pulses present Dx/Plan (1) Acute respiratory failure with hypoxia and hypercapnia Code(s): J96.01 - ACUTE RESPIRATORY FAILURE WITH HYPOXIA; J96.02 - ACUTE RESPIRATORY FAILURE WITH HYPERCAPNIA Status: Acute Comment: extubated 2018 (2) Hospital-acquired pneumonia Code(s): J18.9 - PNEUMONIA, UNSPECIFIED ORGANISM Status: Acute (3) Dysphagia Code(s): R13.10 - DYSPHAGIA, UNSPECIFIED Status: Acute (4) Acute encephalopathy Code(s): G93.40 - ENCEPHALOPATHY, UNSPECIFIED Status: Acute (5) Muscular deconditioning Code(s): R29.898 - OT SYMPTOMS AND SIGNS INVOLVING THE MUSCULOSKELETAL SYSTEM Status: Chronic (6) Chronic diastolic heart failure Code(s): I50.32 - CHRONIC DIASTOLIC (CONGESTIVE) HEART FAILURE Status: Chronic (7) Hypertension Code(s): I10 - ESSENTIAL (PRIMARY) HYPERTENSION Status: Chronic (8) Parkinson disease Code(s): G20 - PARKINSON'S DISEASE Status: Chronic - Plan * Acute respiratory failure- improved * HTN- blood pressure is a bit elevated- will monitor * Parkinson's Disease- stable * Chronic diastolic heart failure- compensated. * Continue PT/OT
[2018-02-11] MEDS: risperiDONE 1 MG TAB PO SCH (20:33)
[2018-02-11] MEDS: Atorvastatin Calcium 40 MG TAB PO SCH (20:33)
[2018-02-12] MEDS: Nitroglycerin 2% Ointment 1 INCH/1 GM Packet TOP SCH ×2 (09:02→19:53)
[2018-02-12] MEDS: Benztropine 1 MG TAB PO SCH (09:02)
[2018-02-12] MEDS: Gabapentin 100 MG CAP PO SCH ×2 (09:02→19:52)
[2018-02-12] MEDS: Carbidopa/Levodopa 25-100 mg Tablet PO SCH ×2 (09:02→19:52)
[2018-02-12] MEDS: Enoxaparin Sodium 40 MG/0.4 ML SYRINGE SC SCH (09:03)
--- NOTE | 2018-02-12 12:35 | PDOC.PN ---
- Subjective Encounter Start Date: 02/12/18 Encounter Start Time: 12:00 Mr. Go was seen today in follow-up of Pneumonia and respiratory failure. He does not have any complaints this morning. - Objective Resuscitation Status - Order Detail: 01/29/18 09:32 Resuscitation Status Routine Resuscitation Status: FULL: Full Resuscitation Discussed with: POA is Mrs. Donavan GAVIRIA Reviewed: Yes Vital Signs & Weight: Vital Signs (12 hours) Temp Pulse Resp BP Pulse Ox 02/12/18 12:16 84 14 96 02/12/18 08:00 95 02/12/18 06:38 94 20 95 02/12/18 04:00 97.8 F 94 22 H 172/87 H 95 Weight Admit Weight 229 lb 4.492 oz Weight 221 lb 1.978 oz Most Recent Monitor Data Heart Rate from ECG 83 NIBP 139/88 NIBP BP-Mean 105 Respiration from ECG 16 SpO2 97 I&O: 02/11/18 02/12/18 02/13/18 06:59 06:59 06:59 Intake Total 1200 280 Balance 1200 280 Result Diagrams: 02/10/18 06:00 02/10/18 06:00 Additional Labs: Accuchecks 02/12/18 02/11/18 02/11/18 05:03 19:34 16:31 POC Glucose 111 H 137 H 98 Phys Exam - Physical Examination HEENT: PERRLA Respiratory: no wheezing, no rales, no rhonchi, clear to auscultation bilateral Cardiovascular: RRR, no significant murmur, no rub Gastrointestinal: soft, non-tender, no distention, positive bowel sounds Musculoskeletal: edema present trace pedal edema Neurological: non-focal, normal sensation Dx/Plan (1) Acute respiratory failure with hypoxia and hypercapnia Code(s): J96.01 - ACUTE RESPIRATORY FAILURE WITH HYPOXIA; J96.02 - ACUTE RESPIRATORY FAILURE WITH HYPERCAPNIA Status: Acute Comment: extubated 2018 (2) Hospital-acquired pneumonia Code(s): J18.9 - PNEUMONIA, UNSPECIFIED ORGANISM Status: Resolved (3) Dysphagia Code(s): R13.10 - DYSPHAGIA, UNSPECIFIED Status: Acute (4) Acute encephalopathy Code(s): G93.40 - ENCEPHALOPATHY, UNSPECIFIED Status: Acute (5) Muscular deconditioning Code(s): R29.898 - OTH SYMPTOMS AND SIGNS INVOLVING THE MUSCULOSKELETAL SYSTEM Status: Chronic (6) Chronic diastolic heart failure Code(s): I50.32 - CHRONIC DIASTOLIC (CONGESTIVE) HEART FAILURE Status: Chronic (7) Hypertension Code(s): I10 - ESSENTIAL (PRIMARY) HYPERTENSION Status: Chronic (8) Parkinson disease Code(s): G20 - PARKINSON'S DISEASE Status: Chronic - Plan * Acute respiratory failure- from Pneumonia, and then volume overload- improved * Pneumonia- resolved- he has completed antibiotics * HTN- blood pressure has improved * Parkinson's disease- stable * Deconditioning- awaiting placement- continue PT/OT.
[2018-02-12 14:28] VITALS: BMI 30.8
[2018-02-12] MEDS: Ziprasidone 20 MG VIAL IM PRN (17:59)
[2018-02-12] MEDS: Sterile Water 10 ML VIAL FS PRN (18:00)
[2018-02-12] MEDS: Atorvastatin Calcium 40 MG TAB PO SCH (19:51)
[2018-02-12] MEDS: risperiDONE 1 MG TAB PO SCH (19:52)
[2018-02-13 07:07] VITALS: BP 166/98; TEMP 97.7
[2018-02-13] MEDS: Nitroglycerin 2% Ointment 1 INCH/1 GM Packet TOP SCH (08:35)
[2018-02-13] MEDS: Lorazepam 0.5 MG TAB PO PRN (08:36)
[2018-02-13] MEDS: Benztropine 1 MG TAB PO SCH (08:36)
[2018-02-13] MEDS: Gabapentin 100 MG CAP PO SCH (08:36)
[2018-02-13] MEDS: Carbidopa/Levodopa 25-100 mg Tablet PO SCH (08:36)
[2018-02-13] MEDS: Enoxaparin Sodium 40 MG/0.4 ML SYRINGE SC SCH (08:36)
--- NOTE | 2018-02-13 11:07 | PRG ---
DATE OF SERVICE: 02/13/2018 SERVICE: Pulmonary Medicine. INTERVAL HISTORY: The patient is doing fine from respiratory standpoint. He is breathing comfortably. He is on room air. There has been no interval change to his condition. PHYSICAL EXAMINATION: VITAL SIGNS: Afebrile, pulse 95, blood pressure 166/98, respirations 19, and saturation 96% on room air. GENERAL: The patient is awake and alert, in no apparent distress. LUNGS: Decent air entry. There is some minimal crackles and rhonchi present. Rhonchi clear with cough. No prolonged expiratory phase or wheezing is appreciated. HEART: Normal rate. Regular. ABDOMEN: Soft, nontender, and nondistended. Bowel sounds are positive. MUSCULOSKELETAL: No cyanosis or clubbing. There is no pitting in the bilateral lower extremities. NEUROLOGIC: Grossly nonfocal. LABORATORY DATA: Blood sugar ranges from 98 to 137. ASSESSMENT: 1. Acute hypoxic respiratory failure, resolved. 2. Healthcare-associated pneumonia secondary to methicillin-susceptible Staphylococcus aureus, status post full course of therapy. 3. Urinary tract infection secondary to Streptococcus, status post full course of therapy. 4. Chronic diastolic heart failure. 5. Delirium, improving. 6. 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 DISCUSSION AND PLAN: The patient is doing absolutely fantastic from respiratory standpoint. At this point, he has no further requirements for inpatient Pulmonary/Critical Care opinion, and I will sign off. Please call with additional questions or concerns through time. Because of his cognitive impairment, he is a very high risk of having to come back to the hospital. That being said, from medical standpoint, there is nothing acute that is happening. At this point, the best thing for him long-term would be to get back into his typical care facility, and routine and hopefully, his delirium will slowly improve through time. Job ID: [id number]
--- NOTE | 2018-02-13 15:10 | PDOC.PN ---
- Subjective Encounter Start Date: 02/13/18 Encounter Start Time: 08:00 Subjective: awake, conversing well -: is oriented fairly well -: daughter at bedside - Objective Resuscitation Status - Order Detail: 01/29/18 09:32 Resuscitation Status Routine Resuscitation Status: FULL: Full Resuscitation Discussed with: DUNIA is Mrs. Donavan GAVIRIA Reviewed: Yes Vital Signs & Weight: Vital Signs (12 hours) Temp Pulse Resp BP Pulse Ox 02/13/18 08:00 96 02/13/18 07:04 97.7 F 95 19 166/98 H 96 02/13/18 06:37 85 16 94 L Weight Admit Weight 229 lb 4.492 oz Weight 222 lb 4.8 oz Most Recent Monitor Data Heart Rate from ECG 83 NIBP 139/88 NIBP BP-Mean 105 Respiration from ECG 16 SpO2 97 I&O: 02/12/18 02/13/18 02/14/18 06:59 06:59 06:59 Intake Total 280 100 Balance 280 100 Result Diagrams: 02/10/18 06:00 02/10/18 06:00 Additional Labs: Accuchecks 02/13/18 02/13/18 02/12/18 10:54 04:18 19:22 POC Glucose 113 H 107 106 02/12/18 15:52 POC Glucose 121 H Phys Exam - Physical Examination HEENT: PERRLA, moist MMs Neck: no JVD, supple Respiratory: no wheezing, no rales rhonchi+ Cardiovascular: RRR, no significant murmur Gastrointestinal: soft, non-tender, positive bowel sounds Musculoskeletal: no edema, pulses present Neurological: non-focal, moves all 4 limbs Dx/Plan (1) Acute respiratory failure with hypoxia and hypercapnia Code(s): J96.01 - ACUTE RESPIRATORY FAILURE WITH HYPOXIA; J96.02 - ACUTE RESPIRATORY FAILURE WITH HYPERCAPNIA Status: Acute Comment: extubated 2018 (2) Acute encephalopathy Code(s): G93.40 - ENCEPHALOPATHY, UNSPECIFIED Status: Resolved (3) Muscular deconditioning Code(s): R29.898 - OTH SYMPTOMS AND SIGNS INVOLVING THE MUSCULOSKELETAL SYSTEM Status: Chronic (4) Anemia, normocytic normochromic Code(s): D64.9 - ANEMIA, UNSPECIFIED Status: Chronic (5) Dementia Code(s): F03.90 - UNSPECIFIED DEMENTIA WITHOUT BEHAVIORAL DISTURBANCE Status: Chronic Qualifiers: Dementia type: Parkinson's disease (6) Obesity (BMI 30.0-34.9) Code(s): E66.9 - OBESITY, UNSPECIFIED Status: Chronic (7) Parkinson disease Code(s): G20 - PARKINSON'S DISEASE Status: Chronic - Plan hemostable -: may dc to [facility] [place] -: gave update to daughter at bedside -: needs to eat better, he doesn't like pureed diet, to adv per speech adv * .
--- NOTE | 2018-02-13 16:50 | DIS ---
DATE OF ADMISSION: 01/29/2018 DATE OF DISCHARGE: 02/13/[address]POS[address]: [facility] in [place]. PRIMARY DISCHARGE DIAGNOSES: 1. Acute respiratory failure with hypoxia. 2. Initial sepsis with pneumonia, resolved. 3. Acute encephalopathy, resolved. 4. Severe deconditioning. 5. Chronic anemia. 6. Dementia. 7. Parkinson disease. PROCEDURES DONE DURING HOSPITALIZATION: The patient has had multiple chest x-rays done as part of his acute respiratory failure initially. CT brain done showed no acute abnormality seen on arrival. CT cervical spine showed no acute abnormality. Chest x-ray done on the day of admission showed patchy infiltrates in right mid and lower lungs zones. No pneumothorax or large effusion was seen. Bronchial washing culture from lower lobe grew Staph aureus, resistant to Zosyn and amoxicillin, but sensitive to all other antibiotics. Hemoglobin and hematocrit of 10 and 29, platelet count 200, MCV is 89. BUN 17, creatinine 0.6. The troponin I was indeterminate initially. BNP 136. Albumin was 4.0. UA was positive for UTI. DISCHARGE MEDICATIONS: 1. Aspirin 81 mg p.o. daily. 2. Lipitor 40 mg p.o. at bedtime. 3. Cogentin 1 mg p.o. at bedtime. 4. 25/100 mg one tablet twice daily. 5. Duloxetine 20 mg daily. 6. Vitamin D2 of 50,000 units once weekly. 7. Gabapentin 200 mg p.o. at bedtime and 100 mg p.o. q.a.m. 8. Multivitamin one tablet once daily. 9. Fish oil 2000 mg p.o. daily. 10. Clonidine transdermal patch 0.2 mg once weekly. 11. DuoNeb q.4 hourly p.r.n. 12. Lopressor 12.5 mg twice daily. 13. Risperdal 2 mg p.o. at bedtime. ALLERGIES: NO KNOWN DRUG ALLERGIES. INPATIENT CONSULT: Dr. Medina for Pulmonology. BRIEF COURSE DURING HOSPITALIZATION: The patient initially was brought from home for confusion and shortness of breath. He was also found on the floor at home prior to arrival here. The patient had a GCS of 7 and had difficulty maintaining airway and had to be intubated on arrival in the ER. He was also found to be septic with pneumonia in the right lung. His bronchoscopic cultures grew MSSA. He was successfully extubated. The patient had prolonged encephalopathy, which is cleared up. He has underlying Parkinson's with dementia. He seems to be at his baseline cognitive status prior to discharge. He has been accepted to [facility] in [place]. I have given complete updates to a daughter, who is here at bedside on the day of discharge. The patient needs to work with Physical Therapy and Occupational Therapy along with [facility] at the [facility]. He is currently on pureed diet and is not eating much as he does not like the texture. Hopefully, his diet will be advanced based on speech ongoing evaluation at the [facility]. He is otherwise hemodynamically stable and will be shortly discharged. A total of 35 minutes was spent on discharge plan. Please see a [id number] documentation for the day of discharge on [employer]. Job ID: [id number]
== END 2018-02-13 13:33 | DRG 870 ==
LOC: ERS 04:00 → CCU 07:13 → T4-B 02-03 14:00 → 2NO 02-07 15:56 → T4-B 02-09 14:23
PROVIDERS: ADMIT Internal Medicine; ATTEND Internal Medicine
PROC: 5A1955Z Respiratory Ventilation, Greater than 96 Consecutive Hours (ICD-10-PCS; principal; 2018-01-29)
PROC: 0BDJ8ZX Extraction of Left Lower Lung Lobe, Via Natural or Artificial Opening Endoscopic, Diagnostic (ICD-10-PCS; 2018-01-29)
PROC: 3E0G76Z Introduction of Nutritional Substance into Upper GI, Via Natural or Artificial Opening (ICD-10-PCS; 2018-01-30)
DX: A41.01 Sepsis due to Methicillin susceptible Staphylococcus aureus (principal); J96.01 Acute respiratory failure with hypoxia; J18.9 Pneumonia, unspecified organism; J96.02 Acute respiratory failure with hypercapnia; G92 Toxic encephalopathy; I50.32 Chronic diastolic (congestive) heart failure; N39.0 Urinary tract infection, site not specified; W06.XXXA Fall from bed, initial encounter; Z91.81 History of falling; Y92.013 Bedroom of single-family (private) house as the place of occurrence of the external cause; G20 Parkinson's disease; F02.80 Dementia in other diseases classified elsewhere, unspecified severity, without behavioral disturbance, psychotic disturbance, mood disturbance, and anxiety; I11.0 Hypertensive heart disease with heart failure; R65.20 Severe sepsis without septic shock; D64.89 Other specified anemias; Z79.82 Long term (current) use of aspirin; Z79.51 Long term (current) use of inhaled steroids; Z79.899 Other long term (current) drug therapy; Z79.84 Long term (current) use of oral hypoglycemic drugs; J43.9 Emphysema, unspecified; I25.2 Old myocardial infarction; F43.10 Post-traumatic stress disorder, unspecified; Z87.891 Personal history of nicotine dependence; F31.9 Bipolar disorder, unspecified; E66.9 Obesity, unspecified; Z68.30 Body mass index [BMI] 30.0-30.9, adult; B95.5 Unspecified streptococcus as the cause of diseases classified elsewhere; R41.0 Disorientation, unspecified; T42.4X5A Adverse effect of benzodiazepines, initial encounter; Y92.230 Patient room in hospital as the place of occurrence of the external cause; E11.9 Type 2 diabetes mellitus without complications
CPT/HCPCS: 31500; 36415; 36416; 51703; 70450; 71045; 72125; 74018; 80048; 80053; 80202; 81003; 81015; 82140; 82330; 82550; 82553; 82803; 82805; 83605; 83735; 83880; 84100; 84484; 85014; 85018; 85025; 87040; 87070; 87077; 87086; 87186; 87205; 93005; 94002; 94003; 94640; 96365; 96367; 96375; 99292; A4216; G8978-GP-CN; G8979-GP-CK; G8996-GN-CL; G8997-GN-CK; J0360; J0692; J1630; J1650; J1940; J1956; J2060; J2250; J2405; J2543; J2704; J2920; J3010; J3370; J3480; J3486; J7050; J7506; J7620; S0028

== ENCOUNTER 2018-04-05 10:26 | Observation (INO) | payer MEDICARE ==
[2018-04-05] MEDS ORDERED: Enoxaparin Sodium 100 MG/ML SYRINGE ONE (10:58)
[2018-04-05] MEDS ORDERED: hydrALAZINE 20 MG/ML VIAL ONE (10:58)
[2018-04-05 11:17] LABS: PTT 32.7 SEC (22.9-36.1); Prothrombin Time 13.4 SEC (12.0-14.7)
[2018-04-05 11:55] LABS: CKMB 1.5 ng/mL (0-6.6)
[2018-04-05 15:03] LABS: CKMB 1.6 ng/mL (0-6.6)
[2018-04-05] MEDS ORDERED: Ondansetron ODT 4 MG TAB SL PRN (15:17)
[2018-04-05] MEDS ORDERED: Ondansetron PF 4 MG/2 ML Vial IVP PRN ×2 (15:17→15:25)
[2018-04-05] MEDS ORDERED: Acetaminophen 325 MG TAB PO PRN ×2 (15:17→15:25)
[2018-04-05 15:25] VITALS: BMI 31.7
[2018-04-05] MEDS ORDERED: HumaLOG 300 UNITS/3 ML VIAL SC PRN ×2 (15:25)
[2018-04-05] MEDS ORDERED: Dextrose 5% in Water 1,000 ML IV PRN (15:25)
[2018-04-05] MEDS ORDERED: hydrALAZINE 20 MG/ML VIAL SLOW IVP PRN (15:25)
[2018-04-05] MEDS ORDERED: Dextrose 50% Abboject 50 ML SYRINGE SLOW IVP PRN (15:25)
[2018-04-05] MEDS ORDERED: Ondansetron ODT 4 MG TAB PO PRN (15:25)
[2018-04-05] MEDS ORDERED: cloNIDine 0.2mg/24 Hour PATCH TD SCH (16:00)
--- NOTE | 2018-04-05 20:27 | HP ---
PRIMARY CARE PHYSICIAN: Dr. Paul. CHIEF COMPLAINT: Fell at the inpatient rehab. HISTORY OF PRESENT ILLNESS: Mr. Go is a pleasant 67-year-old gentleman, who has a complicated past medical history with an extensive history of coronary artery disease. Apparently, he had an NC, what sounds like cardiogenic shock at an outside facility in mid last year. Since then, he has had difficulties with severe deconditioning. He was actually released from our facility on February 24 to the inpatient rehab facility for severe muscular deconditioning and acute respiratory failure. He was apparently doing well in the rehab unit until the last week when he says he generally was not feeling very well. He says that when he would take a breath he would feel some epigastric tenderness. He also says that his breathing seemed more labored. His also says that his blood pressure has been running high for the last week and he was getting out of bed to go to the bathroom while in the rehab unit when he says that he basically slid out of the bed onto the floor and after that he was having pain in his right side and right hip. They were concerned that he could possibly have injured himself and there was concern for possible heart or acute coronary syndrome and for this reason, he was sent to the ER. He says he denies having any chest pain. There was no nausea, but his said he had been vomiting off and on, he felt a little bit lightheaded. In the ER, they did a CT scan of the brain as well as x-rays of the chest and pelvis and knees, which were all essentially negative. However, his troponin was elevated and for this reason, he is being placed in observation. Currently, the patient does not have any complaints. His only complaint is that he is feeling hungry. REVIEW OF SYSTEMS: All systems were reviewed and are negative except for that mentioned in the history of present illness. PAST MEDICAL HISTORY: Significant for hypertension, recent NC, PTSD, chronic respiratory failure due to COPD, advanced Parkinson disease with Parkinson dementia, and diabetes mellitus type 2. PAST SURGICAL HISTORY: His said he has had multiple stents. He has had a cholecystectomy as well as bypass surgery. ALLERGIES: NO KNOWN DRUG ALLERGIES. FAMILY HISTORY: His father had an NC. His mother of a motor vehicle accident in her 20s. SOCIAL HISTORY: He is a former smoker. He used to smoke about half a pack a day for 40 years. Denies any alcohol use or drug abuse. He is . His is his medical [id number] and he would like to be a full code. CURRENT MEDICATIONS: Include; 1. Gabapentin 100 mg twice a day. 2. Carbidopa/levodopa 25/100 one tablet twice a day. 3. Duloxetine 20 mg daily. 4. Atorvastatin 40 mg daily. 5. Risperidone 1 mg daily. 6. Tolnaftate topical twice a day. 7. Benztropine 1 mg daily. 8. Metoprolol 12.5 mg twice daily. 9. DuoNeb q.4 hours as needed. 10. Nystatin twice a day. 11. Zofran ODT 4 mg as needed. 12. Clonidine patch 0.2, transdermal weekly. PHYSICAL EXAMINATION: GENERAL: He is alert and oriented. He appears to be in no acute distress. He is well developed and well nourished. He is edentulous. VITAL SIGNS: Blood pressure 187/112, heart rate 75, respiratory rate of 18, temperature 98.5. HEENT: Pupils are equal, round, and reactive. Extraocular muscles are intact. Sclerae are anicteric. Throat, no erythema, no exudates. As previously mentioned, he his edentulous. NECK: No adenopathy, no bruits. LUNGS: Clear to auscultation. There is no wheezing, no rales, no rhonchi. CARDIOVASCULAR: He has a normal S1 and S2. I did not appreciate an S3 or S4. He did have a slight grade 2/6 systolic murmur. ABDOMEN: Obese, it is soft, it is nontender, nondistended, positive for bowel sounds. There is no rebound, no guarding, no organomegaly. EXTREMITIES: He has some trace pedal edema. There is no calf tenderness. No warmth. No significant joint effusions. NEUROLOGIC: His cranial nerves are grossly intact and he is moving all extremities. It is grossly nonfocal. SKIN AND INTEGUMENT: There are no skin changes other than some skin changes from chronic sun exposure. LABORATORY DATA: On his EKG, he has an incomplete right bundle. The heart rate is in the 70s and this is by my reading. He also had a chest x-ray showing some cardiomegaly. There was some increase in his vascular markings at the bases. He had some flattened diaphragms consistent with COPD and possibly small bilateral pleural effusions. This is by my reading, as well. The white blood cell count was 8, hemoglobin 11.0, hematocrit is 34.6, and platelet count was 189. The sodium is 140, potassium is 4.0, chloride is 102, CO2 is 28, BUN of 15, creatinine 0.8, glucose is 151. Troponin is 0.17. Urinalysis was negative. ASSESSMENT: 1. This is a pleasant 67-year-old gentleman, who presents to the emergency room after suffering a fall in inpatient rehab. It was noted that his blood pressure has been elevated and is currently elevated now, and his troponin is about 10 times higher than it had been on his previous admission. For this reason, he is being placed in observation. He has a complicated cardiac history as previously mentioned with recent myocardial infarction and what sounds like either cardiogenic shock or a malignant arrhythmia that necessitated cardiac resuscitation in an outside hospital. He will be monitored on telemetry. We will continue to trend his cardiac enzymes, place him on nitrates and aspirin, and consult Cardiology for further recommendations. It is noted he had a recent echo in January in which his ejection fraction was normal. 2. For hypertensive urgency, we will restart his home medications and titrate these as needed. We will also have p.r.n. blood pressure medications available as needed. 3. Diabetes mellitus. Once again, we will need to reconcile and restart his home medications and also place him on a sliding scale insulin. 4. Parkinson disease with dementia. It is noted that on his previous admission, I treated him and he did have episodes of altered mental status and delirium. Currently, he is back at his baseline, but he is at high risk for this given that he will be in a hospital setting. 5. Chronic respiratory failure secondary to chronic obstructive pulmonary disease. Continue his DuoNeb p.r.n. and consider adding a long-acting beta agonist. He will also be placed on deep venous thrombosis and gastrointestinal prophylaxis. Job ID: [id number]
[2018-04-05 20:58] LABS: CKMB 1.6 ng/mL (0-6.6)
[2018-04-05] MEDS: risperiDONE 1 MG TAB PO SCH (21:06)
[2018-04-05] MEDS: Metoprolol Tartrate 25 MG TAB PO SCH (21:06)
[2018-04-05] MEDS: Famotidine 20 MG TAB PO SCH (21:06)
[2018-04-05] MEDS: Carbidopa/Levodopa 25-100 mg Tablet PO SCH (21:07)
[2018-04-05] MEDS: Atorvastatin Calcium 40 MG TAB PO SCH (21:07)
[2018-04-05] MEDS: Nitroglycerin 2% Ointment 1 INCH/1 GM Packet TOP SCH (21:21)
[2018-04-05 23:34] LABS: Troponin I 0.203 ng/mL (< 0.028)
[2018-04-06] MEDS: Nitroglycerin 2% Ointment 1 INCH/1 GM Packet TOP SCH ×3 (05:18→23:41)
[2018-04-06 05:28] LABS: #Basophils 0.1 thou/uL (0.0-0.2); #Eosinphils 0.1 thou/uL (0.0-0.7); #Lymphocytes 1.7 thou/uL (1.20-3.40); #Monocytes 0.3 thou/uL (0.11-0.59); #Neutrophils 2.5 thou/uL (1.40-6.50); %Basophils 1.4 % (0.0-1.0); %Eosinophils 2.8 % (0.0-10.0); %Lymphocytes 36.3 % (21.0-51.0); %Monocytes 6.1 % (0.0-10.0); %Neutrophils 53.5 % (42.0-75.0); Hemoglobin 11.3 g/dL (14.0-18.0); Mean Corpuscular HGB CONC 31.9 g/dL (32.0-36.0); Mean Corpuscular Hemoglobin 29.8 pg (27.0-31.0); Mean Corpuscular Volume 93.4 fL (78.0-98.0); Mean Platelet Volume 7.4 fL (7.4-10.4); Platelet Count 187 thou/uL (130-400); RBC Distribution Width 13.6 % (11.5-14.5); Red Blood Cell (RBC) Count 3.78 mill/uL (4.70-6.10); White Blood Cell (WBC) Count 4.6 thou/uL (4.8-10.8)
[2018-04-06 05:45] LABS: Anion Gap 12 mmol/L (10-20); BUN (Urea Nitrogen) 15 mg/dL (8.4-25.7); Calc. Creatinine Clearance 143 mL/min (70-130); Calcium 9.9 mg/dL (7.8-10.44); Carbon Dioxide 27 mmol/L (23-31); Chloride 104 mmol/L (98-107); Estimated GFR-MDRD Greater than 90; Glucose 116 mg/dL (80-115); Potassium 3.4 mmol/L (3.5-5.1); Sodium 140 mmol/L (136-145)
[2018-04-06] MEDS ORDERED: cloNIDine 0.2mg/24 Hour PATCH TD SCH (09:00)
[2018-04-06] MEDS: Famotidine 20 MG TAB PO SCH ×2 (11:22→20:05)
[2018-04-06] MEDS: Metoprolol Tartrate 25 MG TAB PO SCH ×2 (11:22→20:05)
[2018-04-06] MEDS: Carbidopa/Levodopa 25-100 mg Tablet PO SCH ×2 (11:22→20:05)
[2018-04-06] MEDS: Aspirin 325 mg Enteric Coated Tablet PO SCH (11:23)
[2018-04-06] MEDS: Enoxaparin Sodium 40 MG/0.4 ML SYRINGE SC SCH (14:21)
--- NOTE | 2018-04-06 15:20 | PDOC.PN ---
- Subjective Encounter Start Date: 04/06/18 Encounter Start Time: 15:19 Mr. Go was seen today in follow-up of recent fall in Rehab. He does not have any complaints today. He does not remember from from yesterday. He appears comfortable, he is sitting up at the side of the bed eating. - Objective Resuscitation Status - Order Detail: 04/05/18 13:48 Resuscitation Status Routine Resuscitation Status: FULL: Full Resuscitation MAR Reviewed: Yes Vital Signs & Weight: Vital Signs (12 hours) Temp Pulse Pulse Pulse Resp BP BP 04/06/18 14:47 90 16 04/06/18 12:00 97.8 F 120 H 18 04/06/18 10:54 126 H 120 H 138/83 162/87 H 04/06/18 08:59 114 H 106 H 137/92 H 188/107 H 04/06/18 08:00 98.7 F 89 18 04/06/18 07:14 73 16 04/06/18 05:17 98.2 F 80 16 BP Pulse Ox Pulse Ox 04/06/18 14:47 94 L 04/06/18 12:00 162/87 H 95 04/06/18 10:54 04/06/18 08:59 94 L 04/06/18 08:00 139/63 92 L 04/06/18 07:14 94 L 04/06/18 05:17 157/86 H 96 Weight Weight 227 lb 8 oz I&O: 04/05/18 04/06/18 04/07/18 06:59 06:59 06:59 Intake Total 660 Balance 660 Result Diagrams: 04/06/18 04:42 04/06/18 04:42 Additional Labs: Accuchecks 04/06/18 04/06/18 04/05/18 10:42 05:23 21:07 POC Glucose 186 H 132 H 128 H 04/05/18 16:58 POC Glucose 118 H Phys Exam - Physical Examination Respiratory: no wheezing, no rales, no rhonchi, clear to auscultation bilateral Cardiovascular: RRR, no significant murmur, no rub Gastrointestinal: soft, non-tender, no distention, positive bowel sounds Musculoskeletal: no edema Dx/Plan (1) Elevated troponin Code(s): R74.8 - ABNORMAL LEVELS OF OTHER SERUM ENZYMES Status: Acute (2) Fall Code(s): W19.XXXA - UNSPECIFIED FALL, INITIAL ENCOUNTER Status: Acute (3) Chronic diastolic heart failure Code(s): I50.32 - CHRONIC DIASTOLIC (CONGESTIVE) HEART FAILURE Status: Chronic (4) Hypertension Code(s): I10 - ESSENTIAL (PRIMARY) HYPERTENSION Status: Chronic (5) Parkinson disease Code(s): G20 - PARKINSON'S DISEASE Status: Chronic - Plan * Fall and elevated troponin- ? related to an acute coronary syndrome- he appears comfortable- this may have been merely an accidental fall-Await Cardiology input * HTN - blood pressure is a bit labile, but trending down * Chronic diastolic heart failure- compensated -
[2018-04-06] MEDS: risperiDONE 1 MG TAB PO SCH (20:04)
[2018-04-06] MEDS: Atorvastatin Calcium 40 MG TAB PO SCH (20:05)
--- NOTE | 2018-04-06 21:46 | CON ---
DATE OF CONSULTATION: HISTORY OF PRESENT ILLNESS: Singh Go is a 67-year-old white male with history of coronary artery disease and elevated troponin. We were notified of the consultation over 24 hours after it was ordered. The patient is totally unable to give me any significant history. From reading through the records on his admissions over the last 2 months, he apparently had a myocardial infarction, was hospitalized at [facility]. He apparently had some stents put in and he also has a left chest horizontal scar. It is unclear exactly what was performed. In looking at the chest x-ray, I do not see any clips inside the chest to be able to understand what was performed. He certainly may have had a BARNES to the LAD, off-pump in a minimally invasive surgery. Once again, the patient has absolutely no insight as to what took place. He has had progressive weakness and has had multiple falls. He apparently was at inpatient rehab, fell again and was transferred. He has elevated troponin I as he has on every blood drawl that has been performed in the past. He denies any chest discomfort to me. However, I am not certain of his historical accuracy. PAST MEDICAL HISTORY: Coronary artery disease, hypertension, PTSD, COPD with respiratory failure in the past, advanced Parkinson disease with Parkinson dementia, diabetes, bipolar disorder, and hypercholesterolemia PAST SURGICAL HISTORY: Cholecystectomy, hammertoe surgery. MEDICATIONS: At home include; 1. Aspirin 81 daily. 2. Atorvastatin 40 at bedtime. 3. Cogentin 1 mg at bedtime. 4. Carbidopa/levodopa one tablet b.i.d. 5. Clonidine patch TTS-2 every 7 days. 6. Cymbalta 20 daily. 7. Gabapentin 100 mg q.a.m. and 200 mg at bedtime. 8. DuoNeb. 9. Metoprolol 12.5 mg b.i.d. 10. Nystatin powder topically b.i.d. ALLERGIES: NONE. FAMILY HISTORY: Father had myocardial infarction. SOCIAL HISTORY: Smoked in the past. REVIEW OF SYSTEMS: Inaccurate. PHYSICAL EXAMINATION: VITAL SIGNS: Blood pressure 160/77, pulse of 97. HEENT: PERRL. NECK: Supple. CHEST: Clear. CARDIAC: S1 and S2 normal without any S3, S4, or murmurs. ABDOMEN: Normal bowel sounds without tenderness. ABDOMEN: Obese. EXTREMITIES: Revealed no clubbing, cyanosis, or edema. NEUROLOGICAL: The patient is grossly weak. LABORATORY DATA: EKG revealed normal sinus rhythm with possible septal infarction. Hemoglobin 11.3, hematocrit 35.3, white count 4600, platelets 187,000. Sodium 140, potassium 3.4, chloride 104, carbon dioxide 27, BUN 15, and creatinine 0.71. Troponin I 0.225. Echocardiogram in January 2018 revealed ejection fraction of 60% to 65% with evidence for diastolic dysfunction, moderate left atrial enlargement , mild mitral regurgitation, mild tricuspid regurgitation, mild pulmonic regurgitation. IMPRESSION: 1. Frequent falls, generalized weakness. 2. Parkinson disease with Parkinson dementia. 3. History of myocardial infarction, coronary artery stents and possible bypass. 4. Chronically elevated troponin I. Every blood tests he has ever had drawn has an abnormal troponin I. 5. Hypertension. 6. Diabetes. 7. Hypercholesterolemia. 8. Former smoker. 9. Positive family history. 10. Posttraumatic stress disorder. PLAN: Records will be requested from [facility]. I do not feel that the chronically elevated troponin I needs to be further evaluated with the patient apparently just having some type of cardiac surgery seven or eight months ago. He has had normal ejection fraction in the past. He does have some monitored strips that show sinus tachycardia with rates of 130. Echocardiogram, therefore will be repeated to reassess left ventricular function. Job ID: [id number] MTDD
[2018-04-07] MEDS: Nitroglycerin 2% Ointment 1 INCH/1 GM Packet TOP SCH ×3 (05:44→21:22)
[2018-04-07] MEDS: Famotidine 20 MG TAB PO SCH ×2 (08:49→21:21)
[2018-04-07] MEDS: Aspirin 325 mg Enteric Coated Tablet PO SCH (08:49)
[2018-04-07] MEDS: Metoprolol Tartrate 25 MG TAB PO SCH ×2 (08:49→21:21)
[2018-04-07] MEDS: Enoxaparin Sodium 40 MG/0.4 ML SYRINGE SC SCH (08:49)
[2018-04-07] MEDS: Carbidopa/Levodopa 25-100 mg Tablet PO SCH ×2 (08:49→21:21)
--- NOTE | 2018-04-07 13:45 | PDOC.PN ---
- Subjective Encounter Start Date: 04/07/18 Encounter Start Time: 11:00 Mr. Go was seen today in follow-up of a fall and elevated troponin's. He does not have any complaints today. - Objective Resuscitation Status - Order Detail: 04/05/18 13:48 Resuscitation Status Routine Resuscitation Status: FULL: Full Resuscitation MAR Reviewed: Yes Vital Signs & Weight: Vital Signs (12 hours) Temp Pulse Resp BP Pulse Ox 04/07/18 13:37 89 18 93 L 04/07/18 11:20 97.8 F 78 16 167/86 H 95 04/07/18 07:20 97.5 F L 85 20 176/88 H 100 04/07/18 07:08 85 16 92 L Weight Weight 227 lb 8 oz I&O: 04/06/18 04/07/18 04/08/18 06:59 06:59 06:59 Intake Total 660 Balance 660 Result Diagrams: 04/06/18 04:42 04/06/18 04:42 Additional Labs: Accuchecks 04/07/18 04/06/18 04/06/18 10:52 20:51 16:48 POC Glucose 166 H 165 H 108 Phys Exam - Physical Examination HEENT: PERRLA Respiratory: no wheezing, no rales, no rhonchi, clear to auscultation bilateral Cardiovascular: RRR, no significant murmur, no rub Gastrointestinal: soft, non-tender, no distention, positive bowel sounds Musculoskeletal: no edema Dx/Plan (1) Elevated troponin Code(s): R74.8 - ABNORMAL LEVELS OF OTHER SERUM ENZYMES Status: Acute (2) Fall Code(s): W19.XXXA - UNSPECIFIED FALL, INITIAL ENCOUNTER Status: Acute (3) Chronic diastolic heart failure Code(s): I50.32 - CHRONIC DIASTOLIC (CONGESTIVE) HEART FAILURE Status: Chronic (4) Hypertension Code(s): I10 - ESSENTIAL (PRIMARY) HYPERTENSION Status: Chronic (5) Parkinson disease Code(s): G20 - PARKINSON'S DISEASE Status: Chronic - Plan * Elevated Troponin's- Cardiology recommendations noted. Echo has been performed , and awaiting results * Fall- continue PT/OT for reconditioning * HTN- his blood pressure is beginning to creep up- will add Amlodipine * Chronic diastolic heart failure- compensated * Parkinson's disease- continue his home medications.
[2018-04-07] MEDS: Atorvastatin Calcium 40 MG TAB PO SCH (21:21)
[2018-04-07] MEDS: risperiDONE 1 MG TAB PO SCH (21:21)
[2018-04-08] MEDS: Nitroglycerin 2% Ointment 1 INCH/1 GM Packet TOP SCH ×2 (06:02→14:57)
[2018-04-08] MEDS: Carbidopa/Levodopa 25-100 mg Tablet PO SCH (08:25)
[2018-04-08] MEDS: Famotidine 20 MG TAB PO SCH (08:25)
[2018-04-08] MEDS: Aspirin 325 mg Enteric Coated Tablet PO SCH (08:25)
[2018-04-08] MEDS: Enoxaparin Sodium 40 MG/0.4 ML SYRINGE SC SCH (08:26)
[2018-04-08] MEDS: Metoprolol Tartrate 25 MG TAB PO SCH (08:26)
[2018-04-08 08:28] VITALS: TEMP 97.7
[2018-04-08] MEDS ORDERED: Amlodipine 5 MG TAB PO SCH (09:00)
--- NOTE | 2018-04-08 10:14 | PDOC.PN ---
- Subjective Encounter Start Date: 04/08/18 Encounter Start Time: 10:04 Mr. Go was seen today in follow-up of fall and elevated troponin's. He does not have any new complaints. - Objective Resuscitation Status - Order Detail: 04/05/18 13:48 Resuscitation Status Routine Resuscitation Status: FULL: Full Resuscitation MAR Reviewed: Yes Vital Signs & Weight: Vital Signs (12 hours) Temp Pulse Resp BP Pulse Ox 04/08/18 08:25 71 04/08/18 07:11 97.7 F 94 20 184/86 H 94 L 04/08/18 06:40 71 18 94 L 04/08/18 03:24 97.9 F 76 20 174/95 H 95 04/08/18 00:52 84 18 95 04/07/18 23:47 97.8 F 73 18 148/72 H 96 Weight Weight 225 lb 12.8 oz I&O: 04/07/18 04/08/18 04/09/18 06:59 06:59 06:59 Intake Total 2079 Balance 2079 Result Diagrams: 04/06/18 04:42 04/06/18 04:42 Additional Labs: Accuchecks 04/08/18 04/07/18 04/07/18 06:27 20:58 10:52 POC Glucose 125 H 129 H 166 H Phys Exam - Physical Examination HEENT: PERRLA Respiratory: no wheezing, no rales, no rhonchi, clear to auscultation bilateral Cardiovascular: RRR, no significant murmur, no rub Gastrointestinal: soft, non-tender, no distention, positive bowel sounds Musculoskeletal: no edema, pulses present Dx/Plan (1) Elevated troponin Code(s): R74.8 - ABNORMAL LEVELS OF OTHER SERUM ENZYMES Status: Acute (2) Fall Code(s): W19.XXXA - UNSPECIFIED FALL, INITIAL ENCOUNTER Status: Acute (3) Chronic diastolic heart failure Code(s): I50.32 - CHRONIC DIASTOLIC (CONGESTIVE) HEART FAILURE Status: Chronic (4) Hypertension Code(s): I10 - ESSENTIAL (PRIMARY) HYPERTENSION Status: Chronic (5) Parkinson disease Code(s): G20 - PARKINSON'S DISEASE Status: Chronic - Plan * .Elevated troponin's- this is chronic, and there has been no significant change in his Echo * HTN- blood pressure continues to be elevated- will add Amlodipine * He is stable for transfer back to Rehab
[2018-04-08 13:20] VITALS: BP 144/73
--- NOTE | 2018-04-09 03:22 | DIS ---
DATE OF ADMISSION: 04/05/2018 DATE OF DISCHARGE: 04/08/2018 PRIMARY CARE PHYSICIAN: Dr. Elizabeth Paul. DISCHARGE DISPOSITION: Inpatient rehab. DISCHARGE DIAGNOSES: 1. Hypertensive urgency. 2. Elevated troponin. 3. Fall. 4. Post-traumatic stress disorder. 5. Chronic respiratory failure due to chronic obstructive pulmonary disease. 6. Advanced Parkinson disease. 7. Diabetes mellitus. DISCHARGE MEDICATIONS: Include, 1. Amlodipine 5 mg p.o. daily was added. 2. He is to continue Catapres patch 0.2, transdermally every 7 days. 3. Metoprolol 25 mg twice a day. 4. Risperdal 1 mg daily. 5. Vitamin B complex 1 tablet daily. 6. Tolnaftate topical twice a day. 7. [place]-3 fatty acids 2 capsules daily. 8. Multivitamin once daily. 9. Nystatin applied twice a day. 10. Gabapentin 100 mg in the a.m. and 200 at bedtime. 11. Vitamin D2 50,000 units daily. 12. Cymbalta 20 mg daily. 13. Levodopa-carbidopa 25/100 twice a day. 14. Cogentin 1 mg at bedtime. 15. Lipitor 40 mg at bedtime. 16. Aspirin 81 mg daily. PROCEDURES DONE DURING ADMISSION: The patient had a CT scan of the brain, which was negative. Also, had x-rays of the pelvis, knee, and hip, which did not demonstrate any fractures. HOSPITAL COURSE: Mr. Go is a pleasant 67-year-old gentleman, who is in inpatient rehab after an extended hospital stay at our facility recently. He was in the rehab unit when he suffered a fall. There were concerns that he could possibly have had an acute coronary syndrome as the patient had noted some epigastric discomfort off and on prior to the fall. He was placed in observation and it was noted that his troponin was elevated at 0.1 and then 0.2. Cardiology was consulted and he had a repeat echo. This did not show any significant changes. His ejection fraction remained at around 55% with no evidence of any regional wall motion abnormalities. It was noted that his blood pressure was elevated and metoprolol was increased as well as amlodipine added to his regimen, and once he was stabilized, he was able to be discharged back to inpatient rehab. Job ID: [id number]
== END 2018-04-08 15:23 ==
LOC: ERS 10:26 → ERHOLD 11:19 → INTOOBSV 11:19 → 2SW 15:18
PROVIDERS: ADMIT Internal Medicine; ATTEND Internal Medicine
DX: I16.0 Hypertensive urgency (principal); I11.0 Hypertensive heart disease with heart failure; I50.32 Chronic diastolic (congestive) heart failure; F43.10 Post-traumatic stress disorder, unspecified; J96.10 Chronic respiratory failure, unspecified whether with hypoxia or hypercapnia; J44.9 Chronic obstructive pulmonary disease, unspecified; G20 Parkinson's disease; F02.80 Dementia in other diseases classified elsewhere, unspecified severity, without behavioral disturbance, psychotic disturbance, mood disturbance, and anxiety; E11.9 Type 2 diabetes mellitus without complications; I25.10 Atherosclerotic heart disease of native coronary artery without angina pectoris; I25.2 Old myocardial infarction; E78.00 Pure hypercholesterolemia, unspecified; F31.9 Bipolar disorder, unspecified; Z87.891 Personal history of nicotine dependence; Z95.5 Presence of coronary angioplasty implant and graft; Z90.49 Acquired absence of other specified parts of digestive tract; Z95.1 Presence of aortocoronary bypass graft; Z79.82 Long term (current) use of aspirin; Z79.899 Other long term (current) drug therapy; Z98.890 Other specified postprocedural states; W19.XXXA Unspecified fall, initial encounter
CPT/HCPCS: 80048; 82553; 82962 ×4; 84484; 85025; 85610; 85730; 93005; 93306; 94640 ×5; 94760 ×2; 96372 ×4; 96374; 97116; 97139; 97530; 99285; G0378 ×3; 36415; 36416; J0360; J1650; J7620

== ENCOUNTER 2019-01-10 11:25 | Inpatient (IN) | payer MEDICARE ==
[2019-01-10 11:52] LABS: #Eosinphils 0.1 thou/uL (0.0-0.7); #Monocytes 0.7 thou/uL (0.11-0.59); #Neutrophils 13.1 thou/uL (1.40-6.50); %Basophils 0.2 % (0.0-1.0); %Eosinophils 0.4 % (0.0-10.0); %Lymphocytes 6.4 % (21.0-51.0); %Monocytes 4.7 % (0.0-10.0); %Neutrophils 88.3 % (42.0-75.0); Hemoglobin 14.2 g/dL (14.0-18.0); Mean Corpuscular HGB CONC 33.9 g/dL (32.0-36.0); Mean Corpuscular Hemoglobin 30.6 pg (27.0-31.0); Mean Corpuscular Volume 90.2 fL (78.0-98.0); Mean Platelet Volume 6.5 fL (7.4-10.4); Platelet Count 213 thou/uL (130-400); RBC Distribution Width 12.1 % (11.5-14.5); Red Blood Cell (RBC) Count 4.65 mill/uL (4.70-6.10); White Blood Cell (WBC) Count 14.8 thou/uL (4.8-10.8)
--- NOTE | 2019-01-10 12:11 | RAD ---
Chest one view HISTORY: Dyspnea. COMPARISON: 09/20/2018. FINDINGS: Cardiac silhouette is magnified by projection. Pulmonary vasculature remains slightly engor ged. Infiltrate throughout the right lung in the previous study has improved significantly. Patchy bilateral infiltrates and bilateral perihilar infiltrates do persist, less pronounced than on the jad or study. Mediastinum is midline. No evidence of pneumothorax. Old right rib fractures. telemetry monitor leads o verlie the chest. IMPRESSION: Pulmonary vascular congestion is improved compared 09/20/2018 study. Other findings are stable. No new abnormalities are demonstrated.
[2019-01-10 12:21] LABS: ALT (SGPT) 28 U/L (8-55); AST (SGOT) 23 U/L (5-34); Albumin 4.4 g/dL (3.4-4.8); Alkaline Phosphatase 64 U/L (40-110); Anion Gap 16 mmol/L (10-20); BUN (Urea Nitrogen) 19 mg/dL (8.4-25.7); Bilirubin, Total 1.2 mg/dL (0.2-1.2); Calc. Creatinine Clearance 0 mL/min (70-130); Carbon Dioxide 32 mmol/L (23-31); Chloride 89 mmol/L (98-107); Estimated GFR-MDRD Greater than 90; Globulin 2.9 g/dL (2.4-3.5); Glucose 180 mg/dL (80-115); Protein, Total 7.3 g/dL (5.8-8.1); Sodium 134 mmol/L (136-145)
[2019-01-10 12:23] LABS: Potassium 2.9 mmol/L (3.5-5.1)
[2019-01-10 12:37] LABS: CKMB 1.3 ng/mL (0-6.6)
[2019-01-10] MEDS ORDERED: Potassium Chloride 20 MEQ/100 ML PREMIX BAG ONE (13:01)
[2019-01-10] MEDS ORDERED: NS 0.9% w/ 20 MEQ KCL 1,000 ML IV SCH ×2 (13:15→17:15)
--- NOTE | 2019-01-10 13:35 | CT ---
CT PULMONARY ANGIOGRAM WITH IV CONTRAST AND 3D POST PROCESSING: HISTORY: Dyspnea. FINDINGS: No filling defects are seen in the pulmonary arterial vasculature to suggest pulmonary embolism. Ther e are vascular calcifications without evidence of aneurysm or dissection of the thoracic aorta. No pl eural or pericardial effusions are identified. There are patchy infiltrates in the left mid lung. The re are dependent changes in the lung bases. No pneumothoraces are seen. There are degenerative change s in the spine. Old bilateral rib fractures are present. Upper abdominal tomograms demonstrate change s of cholecystectomy. IMPRESSION: 1. No evidence of pulmonary embolism. 2. Probable left sided pneumonia. POS: [facility]
[2019-01-10] MEDS ORDERED: Piperacillin/Tazobactam 4.5 GM VIAL ONE (14:49)
[2019-01-10] MEDS ORDERED: Iopamidol-370 76% 500 ML 1 ML ONE (14:56)
[2019-01-10] MEDS ORDERED: Vancomycin 1.5 GRAM/300 ML BAG 1.5 GM in Premix Bag 1 BAG IVPB SCH (15:15)
[2019-01-10 16:47] LABS: Troponin I 0.107 ng/mL (< 0.028)
[2019-01-10] MEDS ORDERED: Ondansetron ODT 4 MG TAB SL PRN (17:11)
[2019-01-10] MEDS ORDERED: Ondansetron PF 4 MG/2 ML Vial IVP PRN ×2 (17:11→19:01)
[2019-01-10 17:14] VITALS: BMI 33.4
[2019-01-10 18:29] LABS: Troponin I 0.111 ng/mL (< 0.028)
[2019-01-10] MEDS ORDERED: HumaLOG 300 UNITS/3 ML VIAL SC PRN (19:01)
[2019-01-10] MEDS ORDERED: Dextrose 5% in Water 1,000 ML IV PRN (19:01)
[2019-01-10] MEDS ORDERED: Guaifenesin DM 100-10/5 ML UDCUP PO PRN (19:01)
[2019-01-10] MEDS ORDERED: Acetaminophen 325 MG TAB PO PRN (19:01)
[2019-01-10] MEDS ORDERED: Bisacodyl 10 MG SUPP PR PRN (19:01)
[2019-01-10] MEDS ORDERED: Calcium Carbonate 500 MG ChewTAB PO PRN (19:01)
[2019-01-10] MEDS ORDERED: Dextrose 50% Abboject 50 ML SYRINGE SLOW IVP PRN (19:01)
[2019-01-10] MEDS ORDERED: Senokot S 8.6-50 MG TAB PO PRN (19:01)
--- NOTE | 2019-01-10 19:48 | HP ---
REASON FOR ADMISSION: COPD exacerbation, possible aspiration pneumonia. HISTORY OF PRESENTING ILLNESS: The patient gives history of feeling nauseated soon after eating breakfast. He says he ate scrambled eggs and drank a cup of orange juice and coffee. He began having shortness of breath soon. Staff at [facility] called EMS and the patient was taken to the emergency room. On arrival, the patient initially had sat[facility] of 89% [facility] the [facility] and here. He was placed on 2 L oxygen and the saturations came up to 93%. Currently, he has no complaints of chest pain, palpitation, PND, or orthopnea. His temperature was 99 degrees on arrival. PAST MEDICAL AND SURGICAL HISTORY: History of CHF with ejection fraction of around 25% to 30%, history of respiratory failure with him being on vent due to angioedema in September of 2018, hypertension, dyslipidemia, Parkinson disease with dementia, PTSD, diabetes mellitus type 2, coronary artery disease with prior HI, COPD, CABG 2 years back, cholecystectomy. CURRENT MEDICATIONS: The patient is on; 1. Aspirin 81 mg p.o. daily. 2. Cogentin 1 mg p.o. daily. 3. Lipitor 40 mg p.o. daily. 4. Sinemet 25/100 mg p.o. twice daily. 5. Coreg 6.25 mg twice daily. 6. Claritin 10 mg daily. 7. Duloxetine 30 mg daily. 8. Ferrous sulfate 325 mg daily. 9. Lasix 60 mg daily. 10. Gabapentin 100 mg daily and 200 mg p.o. at bedtime. 11. Hydralazine 50 mg three times daily. 12. Metolazone 2.5 mg on Monday, Monday, Monday. 13. Melatonin 5 mg p.o. at bedtime. 14. Oxybutynin 5 mg p.o. daily. 15. K-Dur 20 mEq p.o. twice daily. 16. Risperdal 0.25 mg p.o. at bedtime and 0.25 mg q.48 hourly. ALLERGIES: NO KNOWN DRUG ALLERGIES. PERSONAL HISTORY: He says he quit smoking five years back, prior to which he had smoked 3 packs a day, almost all his life prior to that. Does not abuse alcohol or drugs. He is a resident of [facility]. FAMILY HISTORY: Mother was killed in a motor vehicle accident when he was 13 years old. He does not know much about his biological father, likely in his 90s as far as he knows. CODE STATUS: Full. 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 REVIEW OF SYSTEMS: CONSTITUTIONAL: Negative for weight loss or gain, ability to conduct usual activities. SKIN: Negative for rash, itching. EYES: Negative for double vision, pain. ENT/MOUTH: Negative for nose bleeding, neck stiffness, pain, tenderness. CARDIOVASCULAR: Negative for palpitations, dyspnea on exertion, orthopnea. RESPIRATORY: Negative for shortness of breath, wheezing, cough, hemoptysis, fever or night sweats. GASTROINTESTINAL: Negative for poor appetite, abdominal pain, heartburn, nausea , vomiting, constipation, or diarrhea. GENITOURINARY: Negative for urgency, frequency, dysuria, nocturia. MUSCULOSKELETAL: Negative for pain, swelling. NEUROLOGIC/PSYCHIATRIC: Negative for anxiety, depression. ALLERGY/IMMUNOLOGIC: Negative for skin rash, bleeding tendency. PHYSICAL EXAMINATION: GENERAL: The patient is a 68-year-old male, who is currently not in any acute distress. VITAL SIGNS: Blood pressure 116/88, pulse is 100 per minute, respiratory rate 20 per minute, temperature 99.4 degrees on arrival, saturating 97% on 2 L nasal cannula. NECK: Supple. No elevated JVD. HEENT: Eyes; extraocular muscles intact. Pupils are reacting to light. Oral cavity, mucous membranes are dry. No exudates or congestion. CARDIOVASCULAR SYSTEM: S1 and S2 heard, regular rhythm. RESPIRATORY SYSTEM: Air entry 1+ bilateral, scattered rhonchi plus bilateral, wheezes plus bilateral. ABDOMEN: Soft, bowel sounds heard. No tenderness, rigidity, or guarding. EXTREMITIES: No peripheral edema or calf tenderness. VASCULAR SYSTEM: Peripheral pulses 1+ bilateral. No ischemic ulcerations or gangrene. CENTRAL NERVOUS SYSTEM: No gross focal deficits noted. The patient is alert, awake, and oriented well. PSYCHIATRIC SYSTEM: The patient's mood is euthymic. No hallucinations or delusions. LABORATORY DATA: EKG done shows sinus tach at 134 beats per minute. There is Q-wave seen in V1, V2, V3. CT angio chest done showed no evidence of PE, questionable left lung pneumonia. White count of 14, hemoglobin and hematocrit are 14 and 41, platelet count 213, with 88% neutrophils, MCV is 90. Potassium 2.9, serum bicarb 32, BUN 19, creatinine 0.8, serum glucose 180. Troponin-I 0.12, CK -MB 1.3. Albumin is 4.4. BNP is 13. CLINICAL IMPRESSION AND PLAN: The patient will be admitted to medical floor for acute respiratory failure with hypoxia, chronic obstructive pulmonary disease exacerbation, possible aspiration pneumonia. All the symptoms started after he ate his breakfast. It is unclear if he has underlying dysphagia. We will obtain Speech eval. He will be on aspirin, Lipitor, Cogentin, Risperdal, Sinemet, Coreg, Cymbalta, Neurontin, hydralazine, Ditropan, Protonix as before. He will be on Levaquin 500 mg IV daily, Solu-Medrol 40 mg IV q.6 hourly, DuoNebs q.6 hourly. We will consult Dr. Medina, his watch repairer apprentice during his stay here. We will continue to closely monitor him on medical floor. Job ID: [id number] MTDD
[2019-01-10] MEDS: Sodium Chloride 0.9% 1,000 ML IV SCH (20:13)
[2019-01-10] MEDS: Benztropine 1 MG TAB PO SCH (20:20)
[2019-01-10] MEDS: Atorvastatin Calcium 40 MG TAB PO SCH (20:20)
[2019-01-10] MEDS: Potassium Chloride 20 MEQ TAB PO SCH (20:20)
[2019-01-10] MEDS: hydrALAZINE 25 MG TAB PO SCH (20:20)
[2019-01-10] MEDS: Carbidopa/Levodopa 25-100 mg Tablet PO SCH (20:20)
[2019-01-10] MEDS: Carvedilol 6.25 MG TAB PO SCH (20:21)
[2019-01-10] MEDS: Docusate 100 MG CAP PO SCH (20:21)
[2019-01-10] MEDS: Gabapentin 100 MG CAP PO SCH (20:21)
[2019-01-10] MEDS: risperiDONE 0.25 MG TAB PO SCH (20:21)
[2019-01-10] MEDS ORDERED: Famotidine 20 MG TAB PO SCH (21:00)
[2019-01-10] MEDS ORDERED: Piperacillin/Tazobactam 3.375 GM in Sodium Chloride 0.9% 100 ML IVPB SCH (21:00)
[2019-01-11] MEDS: methylPREDNISolone Sod Succ 40 MG VIAL IVP SCH ×3 (00:24→11:33)
[2019-01-11] MEDS: Potassium Chloride 20 MEQ TAB PO SCH ×3 (01:55→14:12)
[2019-01-11 06:01] LABS: #Lymphocytes 0.7 thou/uL (1.20-3.40); #Monocytes 0.1 thou/uL (0.11-0.59); #Neutrophils 7.8 thou/uL (1.40-6.50); %Basophils 0.1 % (0.0-1.0); %Eosinophils 0.2 % (0.0-10.0); %Lymphocytes 7.6 % (21.0-51.0); %Monocytes 1.5 % (0.0-10.0); %Neutrophils 90.6 % (42.0-75.0); Hemoglobin 12.6 g/dL (14.0-18.0); Mean Corpuscular HGB CONC 33.9 g/dL (32.0-36.0); Mean Corpuscular Hemoglobin 30.7 pg (27.0-31.0); Mean Corpuscular Volume 90.7 fL (78.0-98.0); Mean Platelet Volume 6.6 fL (7.4-10.4); Platelet Count 184 thou/uL (130-400); RBC Distribution Width 12.2 % (11.5-14.5); Red Blood Cell (RBC) Count 4.09 mill/uL (4.70-6.10); White Blood Cell (WBC) Count 8.6 thou/uL (4.8-10.8)
[2019-01-11 06:21] LABS: Anion Gap 11 mmol/L (10-20); BUN (Urea Nitrogen) 22 mg/dL (8.4-25.7); Calc. Creatinine Clearance 123 mL/min (70-130); Calcium 9.7 mg/dL (7.8-10.44); Carbon Dioxide 35 mmol/L (23-31); Chloride 96 mmol/L (98-107); Estimated GFR-MDRD 88; Glucose 195 mg/dL (80-115); Potassium 3.7 mmol/L (3.5-5.1); Sodium 138 mmol/L (136-145)
[2019-01-11] MEDS: HumaLOG 300 UNITS/3 ML VIAL SC PRN ×3 (06:42→17:30)
[2019-01-11] MEDS: hydrALAZINE 25 MG TAB PO SCH ×3 (08:46→20:48)
[2019-01-11] MEDS: Docusate 100 MG CAP PO SCH ×2 (08:46→20:47)
[2019-01-11] MEDS: DULoxetine 30 MG CAP PO SCH (08:46)
[2019-01-11] MEDS: Oxybutynin 5 MG TAB PO SCH (08:46)
[2019-01-11] MEDS: Carbidopa/Levodopa 25-100 mg Tablet PO SCH ×2 (08:46→20:48)
[2019-01-11] MEDS: Enoxaparin Sodium 40 MG/0.4 ML SYRINGE SC SCH (08:47)
[2019-01-11] MEDS: Aspirin Chewable 81 MG TAB PO SCH (08:47)
[2019-01-11] MEDS: Carvedilol 6.25 MG TAB PO SCH ×2 (08:47→20:47)
[2019-01-11] MEDS: Gabapentin 100 MG CAP PO SCH ×2 (08:47→20:48)
[2019-01-11] MEDS ORDERED: FLU VACC TS2019-20(65YR UP)/PF 180 MCG/0.5 ML SYRINGE IM ONE (09:00)
[2019-01-11] MEDS: Sodium Chloride 0.9% 1,000 ML IV SCH (14:15)
[2019-01-11] MEDS: Atorvastatin Calcium 40 MG TAB PO SCH (20:47)
[2019-01-11] MEDS: Benztropine 1 MG TAB PO SCH (20:47)
[2019-01-11] MEDS: risperiDONE 0.25 MG TAB PO SCH (20:48)
--- NOTE | 2019-01-11 21:30 | CON ---
DATE OF CONSULTATION: 01/11/2019 SERVICE: Pulmonary Medicine. REASON FOR CONSULTATION: Pneumonia. HISTORY OF PRESENT ILLNESS: The patient is a 68-year-old white male with past medical history significant for obstructive sleep apnea. He is in his usual state of health until he had a fairly abrupt onset of increasing shortness of breath, and severe cough with pleuritic chest discomfort. He was having some fevers and presented to the emergency department. His oxygen saturations were actually quite low. As such, he was placed on some nasal cannula. His saturations popped up fairly easily. In the emergency department, he was given appropriate antibiotics and tucked into the hospital. Overnight, he has had a profound improvement in symptoms. He denies any current fevers or chills. He has a known history of sleep apnea, but has been away from his device for about 8 months now. He actually looks back on being on CPAP with fond memories. [facility], and intends to get [facility] in touch with them, so that he can resume therapy. PAST MEDICAL HISTORY: 1. Chronic systolic ejection fraction. 2. Hypertension. 3. Dyslipidemia. 4. Parkinson disease with dementia. 5. Obstructive sleep apnea. 6. PTSD. 7. Type 2 diabetes mellitus. 8. Coronary artery disease. 9. History of COPD. PAST SURGICAL HISTORY: 1. Coronary artery bypass graft. 2. Cholecystectomy. ALLERGIES: No known drug allergies. MEDICATIONS: List of his inpatient medications was reviewed. I have discontinued his IV fluids. Steroids have been converted over to p.o., and limited to a 5- day course. SOCIAL HISTORY: Negative for tobacco, alcohol or illicit drug use. He has no exposure to chemicals, dust, asbestos, or tuberculosis. Prior to quitting smoking 5 years ago, he had a greater than 100 pack-year history of smoking. FAMILY HISTORY: Noncontributory. REVIEW OF SYSTEMS: General, head, ears, eyes, nose, throat, cardiovascular, respiratory, GI, , musculoskeletal, neurologic, and skin is negative except as mentioned in the HPI. PHYSICAL EXAMINATION: VITAL SIGNS: Afebrile, pulse 97, blood pressure 113/76, respirations 20 and saturation 95% on 1 L nasal cannula. GENERAL: The patient is awake and alert, in no apparent distress. LUNGS: Decent air entry. There is a slightly prolonged expiratory phase. Rhonchi predominate. Minimal crackles are present in bibasilar regions, but I do not hear any wheezing. HEART: Normal rate regular. ABDOMEN: Soft, nontender, nondistended. Bowel sounds are positive. MUSCULOSKELETAL: No cyanosis or clubbing. No pitting in the bilateral lower extremities. NEUROLOGIC: Grossly nonfocal. LABORATORY DATA: WBC 8.6 and downtrending, hemoglobin 12.6, platelets 184,000. Neutrophil count is 91%. Creatinine is 0.86 and stable. Bicarb 35 and gently uptrending, chloride 96. Magnesium 1.8. Troponin is 0.11 and stable. Liver function studies are unremarkable otherwise. BNP 13.6. IMAGING: CTA of the chest demonstrates a small infiltrate in the left mid lung zone. No evidence of pulmonary emboli are present. ASSESSMENT: 1. Acute hypoxic respiratory failure. 2. Community-acquired pneumonia. 3. Obstructive sleep apnea, not currently on continuous positive airway pressure therapy. 4. Chronic obstructive pulmonary disease with acute exacerbation. DISCUSSION AND PLAN: Steroids will be converted over to an oral agent and limited to a 5-day course. We will continue nebulized medications. His p.o. is excellent. IV fluids will be interrupted. Antibiotics can be limited to 5 to 7 day course. Once he is off oxygen and strength is improved, he can be considered for transition out of the hospital. All cough suppressing medications will be completely interrupted. Pulmonary will continue to follow for the time being, but when he feels upward, we can consider transitioning him out of the hospital. He will need to follow up with his primary care physician and [facility] get [facility] on discharge. 70 minutes have been devoted to this patient in various activities. I personally reviewed all imaging studies and laboratory data noted within this document. For fifty percent of this time, I was interacting with the patient at the bedside or coordinating care with the care team. For the remainder of the time I was immediately available to the patient in the hospital unit. Job ID: [id number] [facility]
[2019-01-12] MEDS: HumaLOG 300 UNITS/3 ML VIAL SC PRN ×2 (05:49→16:13)
[2019-01-12 06:48] LABS: Albumin 3.8 g/dL (3.4-4.8); Anion Gap 11 mmol/L (10-20); BUN (Urea Nitrogen) 23 mg/dL (8.4-25.7); BUN/Creatinine Ratio 30.26; Calc. Creatinine Clearance 139 mL/min (70-130); Calcium 9.6 mg/dL (7.8-10.44); Carbon Dioxide 32 mmol/L (23-31); Chloride 96 mmol/L (98-107); Estimated GFR-MDRD Greater than 90; Glucose 143 mg/dL (80-115); Phosphorus 2.2 mg/dL (2.3-4.7); Potassium 3.8 mmol/L (3.5-5.1); Sodium 135 mmol/L (136-145)
--- NOTE | 2019-01-12 08:42 | PDOC.HOSPP ---
- Subjective Encounter Date: 01/11/19 Encounter Time: 13:00 Subjective: Patient seen and examined for resp failure. SOB improving. Cough with mild production. No fever. No new complaints. No overnight events - Objective Vital Signs & Weight: Vital Signs (12 hours) Temp Pulse Resp BP BP BP Pulse Ox 01/12/19 07:30 97.8 F 79 20 150/88 H 93 L 01/12/19 07:07 80 16 98 01/12/19 04:35 97.6 F 85 18 134/80 91 L 01/12/19 00:08 91 16 01/11/19 23:59 97.8 F 91 20 130/79 92 L 01/11/19 20:48 104 H 129/76 01/11/19 20:47 129/76 Weight Admit Weight 239 lb 11.2 oz Weight 239 lb 11.2 oz I&O: 01/11/19 01/12/19 01/13/19 06:59 06:59 06:59 Intake Total 2400 Output Total 900 Balance 1500 Result Diagrams: 01/11/19 05:34 01/12/19 06:10 Additional Labs: Accuchecks 01/12/19 01/11/19 01/11/19 04:45 19:51 16:25 POC Glucose 168 H 287 H 275 H 01/11/19 11:13 POC Glucose 229 H Radiology Reviewed by me: Yes (CT chest - pneumonia) Hospitalist ROS - Review of Systems Respiratory: reports: cough, dry, shortness of breath, SOB with excertion, sputum, wheezing Cardiovascular: denies: chest pain, palpitations, orthopnea, paroxysmal noc. dyspnea, edema, light headedness, other Gastrointestinal: denies: nausea, vomiting, abdominal pain, diarrhea, constipation, melena, hematochezia, other - Medication Medications: Active Medications Generic Name Dose Route Start Last Admin Trade Name Freq PRN Reason Stop Dose Admin Albuterol/Ipratropium 3 ml 01/10/19 19:00 01/12/19 07:07 Duoneb NEB 3 ml [id number] JADIEL Administration Aspirin 81 mg 01/11/19 09:00 01/11/19 08:47 Aspirin Chewable PO 81 mg DAILY JADIEL Administration Atorvastatin Calcium 40 mg 01/10/19 21:00 01/11/19 20:47 Lipitor PO 40 mg HS JADIEL Administration Benztropine Mesylate 1 mg 01/10/19 21:00 01/11/19 20:47 Cogentin PO 1 mg HS JADIEL Administration Carbidopa/Levodopa 1 tab 01/10/19 21:00 01/11/19 20:48 Sinemet 25-100 PO 1 tab BID JADIEL Administration Carvedilol 6.25 mg 01/10/19 21:00 01/11/19 20:47 Coreg PO 6.25 mg BID JADIEL Administration Docusate Sodium 100 mg 01/10/19 21:00 01/11/19 20:47 Colace PO 100 mg BID JADIEL Administration Duloxetine HCl 30 mg 01/11/19 09:00 01/11/19 08:46 Cymbalta PO 30 mg DAILY JADIEL Administration Enoxaparin Sodium 40 mg 01/11/19 09:00 01/11/19 08:47 Lovenox SC 40 mg 0900 JADIEL Administration Gabapentin 100 mg 01/11/19 09:00 01/11/19 08:47 Neurontin PO 100 mg QAM JADIEL Administration Gabapentin 200 mg 01/10/19 21:00 01/11/19 20:48 Neurontin PO 200 mg HS JADIEL Administration Hydralazine HCl 50 mg 01/10/19 21:00 01/11/19 20:48 Apresoline PO 50 mg TID JADIEL Administration Insulin Human Lispro 0 units 01/10/19 19:01 01/12/19 05:49 Humalog SC 3 unit .AGGRESSIVE SLIDING PRN Administration Aggressive Correctional Scale Insulin Human Lispro 0 units 01/10/19 19:01 01/11/19 21:36 Humalog SC 3 unit .BEDTIME SLIDING SC PRN Administration Bedtime Correctional Scale Levofloxacin 500 mg 01/12/19 06:00 01/12/19 05:49 Levaquin PO 01/16/19 06:01 500 mg 0600 JADIEL Administration Oxybutynin Chloride 5 mg 01/11/19 09:00 01/11/19 08:46 Ditropan PO 5 mg DAILY JADIEL Administration Pantoprazole Sodium 40 mg 01/11/19 09:00 01/11/19 08:46 Protonix PO 40 mg DAILY JADIEL Administration Risperidone 0.25 mg 01/10/19 21:00 01/11/19 20:48 Risperidone PO 0.25 mg HS JADIEL Administration - Exam General Appearance: NAD Neck: supple, no JVD Heart: RRR, no gallops, no rubs, normal peripheral pulses Respiratory: normal chest expansion, rales, rhonchi, wheezes Gastrointestinal: soft, non-tender, non-distended, normal bowel sounds Extremities: no edema Psychiatric: normal affect, A&O x 3 Hosp A/P - Plan DVT proph w/lovenox Acute hypoxic resp failure (POA) Left sided Pneumonia ?Aspiration (POA) COPD exacerbation Obesity BMI 33.4 FANNY on CPAP Swallow dysfunction Parkinson disease with dementia CAD COPD HTN HLD PLAN: Cont IV Atbx Cont IV Steroids Cont Nebs Cont CPAP HS Cont sliding scale PT/OT AM labs
[2019-01-12] MEDS: DULoxetine 30 MG CAP PO SCH (09:09)
[2019-01-12] MEDS: Docusate 100 MG CAP PO SCH ×2 (09:09→20:24)
[2019-01-12] MEDS: Saccharomyces boulardii 250 MG CAP PO SCH (09:09)
[2019-01-12] MEDS: Carvedilol 6.25 MG TAB PO SCH ×2 (09:09→20:25)
[2019-01-12] MEDS: hydrALAZINE 25 MG TAB PO SCH ×3 (09:09→20:26)
[2019-01-12] MEDS: Aspirin Chewable 81 MG TAB PO SCH (09:09)
[2019-01-12] MEDS: Gabapentin 100 MG CAP PO SCH ×2 (09:10→20:24)
[2019-01-12] MEDS: predniSONE 20 MG TAB PO SCH (09:10)
[2019-01-12] MEDS: Oxybutynin 5 MG TAB PO SCH (09:10)
[2019-01-12] MEDS: Enoxaparin Sodium 40 MG/0.4 ML SYRINGE SC SCH (09:10)
[2019-01-12] MEDS: Carbidopa/Levodopa 25-100 mg Tablet PO SCH ×2 (09:10→20:25)
[2019-01-12] MEDS: K-Phos Neutral 250 MG TAB PO SCH ×2 (11:54→16:11)
--- NOTE | 2019-01-12 17:46 | PRG ---
DATE OF SERVICE: 01/12/2019 SERVICE: Pulmonary Medicine. INTERVAL HISTORY: The patient is doing fine from respiratory standpoint. Breathing comfortably. He has been weaned down to room air. He has no complaints of chest discomfort, nausea, or vomiting. He has been out of bed and his strength is improved a little bit. Ultimately, he feels that he is nearly back to his usual state of health. PHYSICAL EXAMINATION: VITAL SIGNS: Afebrile, pulse 85, blood pressure 138/76, respirations 18, and saturation 94% on room air. GENERAL: The patient is awake and alert, in no apparent distress. LUNGS: Decent air entry. I do not appreciate any crackles today. Rhonchi are much improved. No prolonged expiratory phase or wheezing is appreciated. HEART: Normal rate, regular. ABDOMEN: Soft, nontender, and nondistended. Bowel sounds are positive. MUSCULOSKELETAL: No cyanosis or clubbing. There is no pitting in bilateral lower extremities. NEUROLOGIC: Grossly nonfocal. LABORATORY DATA: WBC 8.6, hemoglobin 12.6, and platelets 184,000. Basic metabolic profile is otherwise unremarkable. Phosphorus is 2.2. Potassium 3.8. ASSESSMENT: 1. Acute hypoxic respiratory failure, resolved. 2. Community-acquired pneumonia. 3. Obstructive sleep apnea, not currently on therapy. 4. Chronic obstructive pulmonary disease with acute exacerbation. 5. Parkinson's disease with dementia. 6. Oropharyngeal dysphagia, likely. DISCUSSION AND PLAN: Antibiotics can be interrupted after total duration of 5 to 7 days. Steroids can be stopped after 5 days. At this point, the patient has returned to his usual state of health from a respiratory standpoint. I recommend that he return to the [place] to see about pursuing CPAP therapy once again. This could help decrease his aspiration risk through time. Additionally, the patient should observe acid reflux precautions by avoiding p.o. within 2 hours, going to sleep, and elevating head of bed, indefinitely. This pneumonia was very likely to represent an aspiration-mediated event. That being said, in people with dementia, feeding tubes are not shown to improve mortality. I agree with modifying his diet to textures that he most comfortably swallows. At this point, he has no further requirements for Pulmonary or Critical Care opinion, and I will sign off. Please call with additional questions or concerns through time. Job ID: [id number]
[2019-01-12] MEDS: Benztropine 1 MG TAB PO SCH (20:25)
[2019-01-12] MEDS: Atorvastatin Calcium 40 MG TAB PO SCH (20:25)
[2019-01-12] MEDS: risperiDONE 0.25 MG TAB PO SCH (20:25)
[2019-01-13 06:36] LABS: Albumin 3.7 g/dL (3.4-4.8); Anion Gap 12 mmol/L (10-20); BUN (Urea Nitrogen) 18 mg/dL (8.4-25.7); Calc. Creatinine Clearance 141 mL/min (70-130); Calcium 9.7 mg/dL (7.8-10.44); Carbon Dioxide 30 mmol/L (23-31); Chloride 98 mmol/L (98-107); Estimated GFR-MDRD Greater than 90; Glucose 114 mg/dL (80-115); Phosphorus 2.7 mg/dL (2.3-4.7); Potassium 3.8 mmol/L (3.5-5.1); Sodium 136 mmol/L (136-145)
--- NOTE | 2019-01-13 07:54 | PDOC.HOSPP ---
- Subjective Encounter Date: 01/12/19 Encounter Time: 15:00 Subjective: Patient seen and examined for Pneumonia. SOB improving. Mild productive cough. No new complaints. No overnight events - Objective Vital Signs & Weight: Vital Signs (12 hours) Temp Pulse Resp BP BP BP Pulse Ox 01/13/19 07:32 97.9 F 78 20 151/87 H 91 L 01/13/19 03:42 94 L 01/12/19 20:26 84 144/85 H 01/12/19 20:25 144/85 H 95 01/12/19 20:00 98.3 F 84 15 144/85 H 95 Weight Admit Weight 239 lb 11.2 oz Weight 239 lb 11.2 oz I&O: 01/12/19 01/13/19 01/14/19 06:59 06:59 06:59 Intake Total 2400 1500 Output Total 900 1400 Balance 1500 100 Result Diagrams: 01/11/19 05:34 01/13/19 05:34 Additional Labs: Accuchecks 01/13/19 01/12/19 01/12/19 04:43 20:35 15:49 POC Glucose 121 H 149 H 218 H 01/12/19 11:26 POC Glucose 149 H Hospitalist ROS - Review of Systems Constitutional: denies: fever, chills, sweats, weakness, malaise, other Gastrointestinal: denies: nausea, vomiting, abdominal pain, diarrhea, constipation, melena, hematochezia, other - Medication Medications: Active Medications Generic Name Dose Route Start Last Admin Trade Name Freq PRN Reason Stop Dose Admin Albuterol/Ipratropium 3 ml 01/10/19 19:00 01/13/19 07:41 Duoneb NEB Not Given [id number]-MS JADIEL Aspirin 81 mg 01/11/19 09:00 01/12/19 09:09 Aspirin Chewable PO 81 mg DAILY JADIEL Administration Atorvastatin Calcium 40 mg 01/10/19 21:00 01/12/19 20:25 Lipitor PO 40 mg HS JADIEL Administration Benztropine Mesylate 1 mg 01/10/19 21:00 01/12/19 20:25 Cogentin PO 1 mg HS JADIEL Administration Carbidopa/Levodopa 1 tab 01/10/19 21:00 01/12/19 20:25 Sinemet 25-100 PO 1 tab BID JADIEL Administration Carvedilol 6.25 mg 01/10/19 21:00 01/12/19 20:25 Coreg PO 6.25 mg BID JADIEL Administration Docusate Sodium 100 mg 01/10/19 21:00 01/12/19 20:24 Colace PO 100 mg BID JADIEL Administration Duloxetine HCl 30 mg 01/11/19 09:00 01/12/19 09:09 Cymbalta PO 30 mg DAILY JADIEL Administration Enoxaparin Sodium 40 mg 01/11/19 09:00 01/12/19 09:10 Lovenox SC 40 mg 0900 JADIEL Administration Gabapentin 100 mg 01/11/19 09:00 01/12/19 09:10 Neurontin PO 100 mg QAM JADIEL Administration Gabapentin 200 mg 01/10/19 21:00 01/12/19 20:24 Neurontin PO 200 mg HS JADIEL Administration Hydralazine HCl 50 mg 01/10/19 21:00 01/12/19 20:26 Apresoline PO 50 mg TID JADIEL Administration Insulin Human Lispro 0 units 01/10/19 19:01 01/12/19 16:13 Humalog SC 6 unit .AGGRESSIVE SLIDING PRN Administration Aggressive Correctional Scale Insulin Human Lispro 0 units 01/10/19 19:01 01/11/19 21:36 Humalog SC 3 unit .BEDTIME SLIDING SC PRN Administration Bedtime Correctional Scale Levofloxacin 500 mg 01/12/19 06:00 01/13/19 05:06 Levaquin PO 01/16/19 06:01 500 mg 0600 JADIEL Administration Oxybutynin Chloride 5 mg 01/11/19 09:00 01/12/19 09:10 Ditropan PO 5 mg DAILY JADIEL Administration Pantoprazole Sodium 40 mg 01/11/19 09:00 01/12/19 09:10 Protonix PO 40 mg DAILY JADIEL Administration Phosphorus 250 mg 01/12/19 12:00 01/12/19 16:11 Kphos Neutral PO 250 mg TID-WM JADIEL Administration Prednisone 40 mg 01/12/19 08:00 01/12/19 09:10 Prednisone PO 01/15/19 08:01 40 mg QAM-WM JADIEL Administration Risperidone 0.25 mg 01/10/19 21:00 01/12/19 20:25 Risperidone PO 0.25 mg HS JADIEL Administration Saccharomyces Boulardii 250 mg 01/12/19 09:00 01/12/19 09:09 Florastor PO 250 mg DAILY JADIEL Administration - Exam General Appearance: NAD Heart: RRR, no gallops Respiratory: no wheezes, rales, rhonchi Gastrointestinal: soft, non-tender, normal bowel sounds Extremities: no edema Hosp A/P - Plan DVT proph w/SCDs Acute hypoxic resp failure (POA) Left sided Pneumonia ?Aspiration (POA) COPD exacerbation Obesity BMI 33.4 FANNY on CPAP Swallow dysfunction Parkinson disease with dementia CAD COPD HTN HLD PLAN: Atbx/Steroids changed to PO Wean O2 Cont Nebs Cont CPAP HS Cont other meds Cont modified diet
[2019-01-13] MEDS: K-Phos Neutral 250 MG TAB PO SCH ×3 (08:58→16:49)
[2019-01-13] MEDS: Carbidopa/Levodopa 25-100 mg Tablet PO SCH ×2 (08:58→20:55)
[2019-01-13] MEDS: hydrALAZINE 25 MG TAB PO SCH ×3 (08:58→20:54)
[2019-01-13] MEDS: DULoxetine 30 MG CAP PO SCH (08:58)
[2019-01-13] MEDS: Oxybutynin 5 MG TAB PO SCH (08:58)
[2019-01-13] MEDS: Saccharomyces boulardii 250 MG CAP PO SCH (08:58)
[2019-01-13] MEDS: Docusate 100 MG CAP PO SCH ×2 (08:58→20:56)
[2019-01-13] MEDS: predniSONE 20 MG TAB PO SCH (08:59)
[2019-01-13] MEDS: Aspirin Chewable 81 MG TAB PO SCH (08:59)
[2019-01-13] MEDS: Enoxaparin Sodium 40 MG/0.4 ML SYRINGE SC SCH (08:59)
[2019-01-13] MEDS: Gabapentin 100 MG CAP PO SCH ×2 (08:59→20:55)
[2019-01-13] MEDS: Carvedilol 6.25 MG TAB PO SCH ×2 (08:59→20:55)
[2019-01-13] MEDS: HumaLOG 300 UNITS/3 ML VIAL SC PRN (16:49)
[2019-01-13] MEDS: Benztropine 1 MG TAB PO SCH (20:54)
[2019-01-13] MEDS: Atorvastatin Calcium 40 MG TAB PO SCH (20:55)
[2019-01-13] MEDS: risperiDONE 0.25 MG TAB PO SCH (20:55)
--- NOTE | 2019-01-13 22:43 | PDOC.HOSPP ---
- Subjective Encounter Date: 01/13/19 Encounter Time: 11:30 Subjective: Patient seen and examined for Resp failure. Gets SOB on mild exertion. Some cough. . No new complaints. No overnight events - Objective Vital Signs & Weight: Vital Signs (12 hours) Temp Pulse Resp BP BP BP Pulse Ox 01/13/19 20:55 122/76 01/13/19 20:54 85 122/76 01/13/19 20:11 92 L 01/13/19 19:38 98.5 F 85 18 122/76 93 L 01/13/19 15:40 97.9 F 84 19 124/80 95 01/13/19 15:00 80 146/92 H 01/13/19 11:00 97.9 F 80 19 130/79 91 L Weight Admit Weight 239 lb 11.2 oz Weight 239 lb 11.2 oz I&O: 01/12/19 01/13/19 01/14/19 06:59 06:59 06:59 Intake Total 2400 1500 Output Total 900 1400 100 Balance 1500 100 -100 Result Diagrams: 01/11/19 05:34 01/13/19 05:34 Additional Labs: Accuchecks 01/13/19 01/13/19 01/13/19 19:44 15:46 11:45 POC Glucose 145 H 194 H 127 H 01/13/19 04:43 POC Glucose 121 H Hospitalist ROS - Review of Systems Constitutional: denies: fever, chills, sweats, weakness, malaise, other Gastrointestinal: denies: nausea, vomiting, abdominal pain, diarrhea, constipation, melena, hematochezia, other - Medication Medications: Active Medications Generic Name Dose Route Start Last Admin Trade Name Freq PRN Reason Stop Dose Admin Albuterol/Ipratropium 3 ml 01/10/19 19:00 01/13/19 20:11 Duoneb NEB Not Given [id number] JADIEL Aspirin 81 mg 01/11/19 09:00 01/13/19 08:59 Aspirin Chewable PO 81 mg DAILY JADIEL Administration Atorvastatin Calcium 40 mg 01/10/19 21:00 01/13/19 20:55 Lipitor PO 40 mg HS JADIEL Administration Benztropine Mesylate 1 mg 01/10/19 21:00 01/13/19 20:54 Cogentin PO 1 mg HS JADIEL Administration Carbidopa/Levodopa 1 tab 01/10/19 21:00 01/13/19 20:55 Sinemet 25-100 PO 1 tab BID JADIEL Administration Carvedilol 6.25 mg 01/10/19 21:00 01/13/19 20:55 Coreg PO 6.25 mg BID JADIEL Administration Docusate Sodium 100 mg 01/10/19 21:00 01/13/19 20:56 Colace PO 100 mg BID JADIEL Administration Duloxetine HCl 30 mg 01/11/19 09:00 01/13/19 08:58 Cymbalta PO 30 mg DAILY JADIEL Administration Enoxaparin Sodium 40 mg 01/11/19 09:00 01/13/19 08:59 Lovenox SC 40 mg 0900 JADIEL Administration Gabapentin 100 mg 01/11/19 09:00 01/13/19 08:59 Neurontin PO 100 mg QAM JADIEL Administration Gabapentin 200 mg 01/10/19 21:00 01/13/19 20:55 Neurontin PO 200 mg HS JADIEL Administration Hydralazine HCl 50 mg 01/10/19 21:00 01/13/19 20:54 Apresoline PO 50 mg TID JADIEL Administration Insulin Human Lispro 0 units 01/10/19 19:01 01/13/19 16:49 Humalog SC 3 unit .AGGRESSIVE SLIDING PRN Administration Aggressive Correctional Scale Insulin Human Lispro 0 units 01/10/19 19:01 01/11/19 21:36 Humalog SC 3 unit .BEDTIME SLIDING SC PRN Administration Bedtime Correctional Scale Levofloxacin 500 mg 01/12/19 06:00 01/13/19 05:06 Levaquin PO 01/16/19 06:01 500 mg 0600 JADIEL Administration Oxybutynin Chloride 5 mg 01/11/19 09:00 01/13/19 08:58 Ditropan PO 5 mg DAILY JADIEL Administration Pantoprazole Sodium 40 mg 01/11/19 09:00 01/13/19 08:58 Protonix PO 40 mg DAILY JADIEL Administration Phosphorus 250 mg 01/12/19 12:00 01/13/19 16:49 Kphos Neutral PO 250 mg TID-WM JADIEL Administration Prednisone 40 mg 01/12/19 08:00 01/13/19 08:59 Prednisone PO 01/15/19 08:01 40 mg QAM-WM JADIEL Administration Risperidone 0.25 mg 01/10/19 21:00 12/08/19 20:55 Risperidone PO 0.25 mg HS JADIEL Administration Saccharomyces Violetadii 250 mg 01/12/19 09:00 01/13/19 08:58 Florastor PO 250 mg DAILY JADIEL Administration - Exam General - other findings: mild resp distress Heart: RRR, no gallops Respiratory: rales, rhonchi Gastrointestinal: soft, non-tender, normal bowel sounds Extremities: no edema Neurological: no new deficit Hosp A/P - Plan DVT proph w/SCDs Acute hypoxic resp failure (POA) Left sided Pneumonia ?Aspiration (POA) COPD exacerbation Obesity BMI 33.4 FANNY on CPAP Swallow dysfunction - on modified diet Parkinson disease with dementia CAD COPD HTN HLD PLAN: Cont PO Atbx/Steroids/Nebs Cont to wean O2 Cont CPAP HS Cont other meds DC in AM if stable
[2019-01-14] MEDS: Docusate 100 MG CAP PO SCH ×2 (09:03→21:02)
[2019-01-14] MEDS: Aspirin Chewable 81 MG TAB PO SCH (09:04)
[2019-01-14] MEDS: Saccharomyces boulardii 250 MG CAP PO SCH (09:04)
[2019-01-14] MEDS: predniSONE 20 MG TAB PO SCH (09:04)
[2019-01-14] MEDS: Gabapentin 100 MG CAP PO SCH ×2 (09:04→21:01)
[2019-01-14] MEDS: hydrALAZINE 25 MG TAB PO SCH ×3 (09:04→21:08)
[2019-01-14] MEDS: Oxybutynin 5 MG TAB PO SCH (09:05)
[2019-01-14] MEDS: Carbidopa/Levodopa 25-100 mg Tablet PO SCH ×2 (09:05→21:02)
[2019-01-14] MEDS: K-Phos Neutral 250 MG TAB PO SCH ×3 (09:05→16:44)
[2019-01-14] MEDS: Enoxaparin Sodium 40 MG/0.4 ML SYRINGE SC SCH (09:05)
[2019-01-14] MEDS: Carvedilol 6.25 MG TAB PO SCH ×2 (09:05→21:02)
[2019-01-14] MEDS: DULoxetine 30 MG CAP PO SCH (09:05)
[2019-01-14] MEDS: HumaLOG 300 UNITS/3 ML VIAL SC PRN (16:44)
[2019-01-14] MEDS: Benztropine 1 MG TAB PO SCH (21:01)
[2019-01-14] MEDS: Atorvastatin Calcium 40 MG TAB PO SCH (21:03)
[2019-01-14] MEDS: risperiDONE 0.25 MG TAB PO SCH (21:04)
--- NOTE | 2019-01-15 07:48 | PDOC.HOSPP ---
- Subjective Encounter Date: 01/14/19 Encounter Time: 11:00 Subjective: Patient seen and examined for resp failure. SOB improving. No new complaints. No overnight events - Objective Vital Signs & Weight: Vital Signs (12 hours) Pulse BP Pulse Ox 01/14/19 21:08 83 145/82 H 01/14/19 21:02 145/82 H 94 L Weight Admit Weight 239 lb 11.2 oz Weight 239 lb 11.2 oz I&O: 01/14/19 01/15/19 01/16/19 06:59 06:59 06:59 Intake Total 900 960 Output Total 100 Balance 800 960 Result Diagrams: 01/11/19 05:34 01/13/19 05:34 Additional Labs: Accuchecks 01/15/19 01/14/19 01/14/19 04:57 19:35 16:30 POC Glucose 140 H 196 H 194 H 01/14/19 12:01 POC Glucose 129 H Hospitalist ROS - Review of Systems Respiratory: reports: cough, dry. denies: shortness of breath, hemoptysis, SOB with excertion, pleuritic pain, sputum, wheezing, other Cardiovascular: denies: chest pain, palpitations, orthopnea, paroxysmal noc. dyspnea, edema, light headedness, other - Medication Medications: Active Medications Generic Name Dose Route Start Last Admin Trade Name Freq PRN Reason Stop Dose Admin Albuterol/Ipratropium 3 ml 01/10/19 19:00 01/15/19 07:46 Duoneb NEB Not Given [id number] JADIEL Aspirin 81 mg 01/11/19 09:00 01/14/19 09:04 Aspirin Chewable PO 81 mg DAILY JADIEL Administration Atorvastatin Calcium 40 mg 01/10/19 21:00 01/14/19 21:03 Lipitor PO 40 mg HS JADIEL Administration Benztropine Mesylate 1 mg 01/10/19 21:00 01/14/19 21:01 Cogentin PO 1 mg HS JADIEL Administration Carbidopa/Levodopa 1 tab 01/10/19 21:00 01/14/19 21:02 Sinemet 25-100 PO 1 tab BID JADIEL Administration Carvedilol 6.25 mg 01/10/19 21:00 01/14/19 21:02 Coreg PO 6.25 mg BID JADIEL Administration Docusate Sodium 100 mg 01/10/19 21:00 01/14/19 21:02 Colace PO 100 mg BID JADIEL Administration Duloxetine HCl 30 mg 01/11/19 09:00 01/14/19 09:05 Cymbalta PO 30 mg DAILY JADIEL Administration Enoxaparin Sodium 40 mg 01/11/19 09:00 01/14/19 09:05 Lovenox SC 40 mg 0900 JADIEL Administration Gabapentin 100 mg 01/11/19 09:00 01/14/19 09:04 Neurontin PO 100 mg QAM JADIEL Administration Gabapentin 200 mg 01/10/19 21:00 01/14/19 21:01 Neurontin PO 200 mg HS JADIEL Administration Hydralazine HCl 50 mg 01/10/19 21:00 01/14/19 21:08 Apresoline PO 50 mg TID JADIEL Administration Insulin Human Lispro 0 units 01/10/19 19:01 01/14/19 16:44 Humalog SC 3 unit .AGGRESSIVE SLIDING PRN Administration Aggressive Correctional Scale Insulin Human Lispro 0 units 01/10/19 19:01 01/11/19 21:36 Humalog SC 3 unit .BEDTIME SLIDING SC PRN Administration Bedtime Correctional Scale Levofloxacin 500 mg 01/12/19 06:00 01/15/19 05:03 Levaquin PO 01/16/19 06:01 500 mg 0600 JADIEL Administration Oxybutynin Chloride 5 mg 01/11/19 09:00 01/14/19 09:05 Ditropan PO 5 mg DAILY JADIEL Administration Pantoprazole Sodium 40 mg 01/11/19 09:00 01/14/19 09:05 Protonix PO 40 mg DAILY JADIEL Administration Phosphorus 250 mg 01/12/19 12:00 01/14/19 16:44 Kphos Neutral PO 250 mg TID-WM JADIEL Administration Prednisone 40 mg 01/12/19 08:00 01/14/19 09:04 Prednisone PO 01/15/19 08:01 40 mg QAM-WM JADIEL Administration Risperidone 0.25 mg 01/10/19 21:00 01/14/19 21:04 Risperidone PO 0.25 mg HS JADIEL Administration Saccharomyces Boulardii 250 mg 01/12/19 09:00 01/14/19 09:04 Florastor PO 250 mg DAILY AJDIEL Administration - Exam General Appearance: NAD Heart: RRR, no gallops Respiratory: no wheezes, rhonchi Gastrointestinal: soft, non-tender, normal bowel sounds Extremities: no edema Hosp A/P - Plan DVT proph w/SCDs Acute hypoxic resp failure (POA) Left sided Pneumonia ?Aspiration (POA) COPD exacerbation Obesity BMI 33.4 FANNY on CPAP Swallow dysfunction - on modified diet Parkinson disease with dementia CAD COPD HTN HLD PLAN: Transfer to SNF Will benefit from PT/OT and ST Cont PO Atbx/Steroids/Nebs Needs CPAP - [facility]
[2019-01-15 07:54] VITALS: BP 149/83; TEMP 98
[2019-01-15] MEDS: Saccharomyces boulardii 250 MG CAP PO SCH (08:14)
[2019-01-15] MEDS: predniSONE 20 MG TAB PO SCH (08:14)
[2019-01-15] MEDS: Docusate 100 MG CAP PO SCH (08:14)
[2019-01-15] MEDS: Carbidopa/Levodopa 25-100 mg Tablet PO SCH (08:14)
[2019-01-15] MEDS: K-Phos Neutral 250 MG TAB PO SCH (08:14)
[2019-01-15] MEDS: Enoxaparin Sodium 40 MG/0.4 ML SYRINGE SC SCH (08:14)
[2019-01-15] MEDS: Aspirin Chewable 81 MG TAB PO SCH (08:15)
[2019-01-15] MEDS: DULoxetine 30 MG CAP PO SCH (08:15)
[2019-01-15] MEDS: Gabapentin 100 MG CAP PO SCH (08:15)
[2019-01-15] MEDS: hydrALAZINE 25 MG TAB PO SCH (08:15)
[2019-01-15] MEDS: Carvedilol 6.25 MG TAB PO SCH (08:15)
[2019-01-15] MEDS: Oxybutynin 5 MG TAB PO SCH (08:15)
--- NOTE | 2019-01-15 12:00 | DIS ---
DATE OF ADMISSION: 01/10/2019 DATE OF DISCHARGE: 01/15/2019 DISCHARGE DISPOSITION: [facility] facility. FOLLOWUP: Follow up with primary care physician, Dr. Fabiano Tay in 3 days. ALLERGIES: NO KNOWN DRUG ALLERGIES. DISCHARGE MEDICATIONS: 1. DuoNebs three times daily. 2. Levaquin 500 mg daily for next 3 days. 3. Prednisone 40 mg daily to be discontinued after 3 days. 4. Florastor 250 mg daily for 1 week. 5. All other home medications were left unchanged. The patient was seen and examined on the day of discharge. Denies any new complaints. No chest pain, shortness of breath, or palpitations reported. Symptomatically, the patient feels much better. BRIEF HOSPITAL COURSE: The patient is a 68-year-old male with COPD; obstructive sleep apnea, on CPAP; and swallowing dysfunction with Parkinson disease, presented to the hospital with shortness of breath and hypoxia. His O2 saturation at the nursing facility was 89% on room air. He was started on O2 supplementation and was transferred to this facility. In the emergency room, he was significantly tachycardic with heart rate of 132. His CT scan of the chest was consistent with left-sided pneumonia, suspected aspiration. He showed good improvement with antibiotics and steroids. He was also seen by Pulmonary, Dr. Medina. He was also evaluated by Speech Therapy and his diet was modified per Speech Therapy's recommendation. The patient has been cleared by Pulmonary for discharge. FINAL DIAGNOSES: 1. Acute hypoxic respiratory failure. 2. Left-sided pneumonia, suspected aspiration. 3. Swallow dysfunction. 4. Chronic obstructive pulmonary disease exacerbation. 5. Obstructive sleep apnea, on CPAP. 6. Obesity with a BMI of 33.4. 7. Parkinson disease with dementia. 8. Coronary artery disease. 9. Hypertension. 10. Hyperlipidemia. Total time coordinating the discharge of this patient was 35 minutes. Plan of care was discussed with the patient in detail. He stated understanding. Job ID: [id number]
--- NOTE | 2019-01-15 15:48 | PQF ---
BALDOMERO SMITH MALIK MD [id number]- 4408 [id number] CLINICAL DOCUMENTATION IMPROVEMENT CLARIFICATION FORM: ICD-10 Updated PLEASE DO AN ADDENDUM TO THE PROGRESS NOTE WITH ANY DOCUMENTATION UPDATES OR ADDITIONS AND CARRY THROUGH TO DC SUMMARY. THANK YOU. DATE: 01/15/19 ATTN: Dr. Aquino Please exercise your independent, professional judgment in responding to the clarification form. Clinical indicators are provided on the bottom of this form for your review Please check appropriate box(s): HEART FAILURE: A. ACUITY [ x ] Chronic B. TYPE [ x ] Systolic / HFrEF [ ] Hypertensive Heart Disease [ ] Other diagnosis [ ] Unable to determine In addition, please specify: Present on Admission (POA): [ x ] Yes [ ] No [ ] Unable to determine For continuity of documentation, please document condition throughout progress notes and discharge summary. Thank You. CLINICAL INDICATORS - SIGNS / SYMPTOMS / LABS / RESULTS AND LOCATION IN EMR 01/10 H&P(James): "History of CHF with ejection fraction of around 25% to 30%" 01/11 Brading: "pmh: chronic systolic ejection fraction" RISKS FACTORS / RESULTS AND LOCATION IN EMR 01/10 H&P(James): "History of CHF, CAD with prior [place]" TREATMENTS / RESULTS AND LOCATION IN EMR Administration of BB--> Coreg 6.25 mg PO BID 01/10-01/15 per orders Oxygen--> 2 L NC 01/10 orders (This form is maintained as a part of the permanent medical record) 2014 [employer]. All Rights Reserved Leigh Dorado RN, BSN, CCDS [email or web address]
--- NOTE | 2019-01-16 10:10 | PQF ---
BALDOMERO SMITH MALIK MD [id number] T4-A- 4408 [id number] CLINICAL DOCUMENTATION CLARIFICATION FORM: POST DISCHARGE Addendum to original discharge summary date: ____ Late entry note date: __ DATE:01/16/2019 ATTN:QUYEN LEBLANC MD Please exercise your independent, professional judgment in responding to the clarification form. Clinical indicators are provided on the bottom of this form for your review Please check appropriate box(es): [ ] Sepsis due to: (Pna, UTI, gangrenous gall bladder, etc.) Due to: [ ] Device (please specify) [ ] Implant [ ] Graft [ ] Infusion [ ] SIRS due to non-infectious process (please specify etiology) [ ] with organ dysfunction [ ] without organ dysfunction [ x ] Severe sepsis with acute organ dysfunction of resp failure (Examples: respiratory failure, encephalopathy, acute kidney failure, other) [ ] Septic Shock [ ] Localized infection without sepsis [ ] Other diagnosis [ ] Unable to determine In addition, please specify: Present on Admission (POA): [ x] Yes [ ] No [ ] Unable to determine For continuity of documentation, please document condition throughout progress notes and discharge summary. Thank You. CLINICAL INDICATORS - SIGNS / SYMPTOMS / LABS Pulse-[id number] in ED on 01/10 by Nathan Daugherty Acute respiratory failure with hypoxia,COPD Exacerbation, Possible aspiration pneumonia-Documented in H&P on 01/10 by fawad Ramirez WBC-14.8-Documented in Laboratory RISK FACTORS Acute respiratory failure with hypoxia,COPD Exacerbation, Possible aspiration pneumonia-Documenetd in H&P on 01/10 by fawad Ramirez TREATMENTS: Zosyn 4.5 g IV-Documented in ED on 01/10 by Nathan Daugherty Vancomycin 1.5 gm IV-Documented in Medication snapshot [employer] (This form is maintained as a part of the permanent medical record) 2014 [employer]. All Rights Reserved [email or web address] [not provided] [email or web address]
== END 2019-01-15 10:04 | DRG 871 ==
LOC: ERS 11:25 → T4-A 16:30
PROVIDERS: ADMIT Family Medicine; ATTEND Family Medicine
DX: A41.9 Sepsis, unspecified organism (principal); J69.0 Pneumonitis due to inhalation of food and vomit; J96.01 Acute respiratory failure with hypoxia; J44.1 Chronic obstructive pulmonary disease with (acute) exacerbation; I50.22 Chronic systolic (congestive) heart failure; R65.20 Severe sepsis without septic shock; G20 Parkinson's disease; F02.80 Dementia in other diseases classified elsewhere, unspecified severity, without behavioral disturbance, psychotic disturbance, mood disturbance, and anxiety; I11.0 Hypertensive heart disease with heart failure; I25.10 Atherosclerotic heart disease of native coronary artery without angina pectoris; E78.5 Hyperlipidemia, unspecified; E66.9 Obesity, unspecified; F43.10 Post-traumatic stress disorder, unspecified; F32.9 Major depressive disorder, single episode, unspecified; F41.9 Anxiety disorder, unspecified; G47.33 Obstructive sleep apnea (adult) (pediatric); R13.12 Dysphagia, oropharyngeal phase; E87.6 Hypokalemia; I25.2 Old myocardial infarction; Z68.33 Body mass index [BMI] 33.0-33.9, adult; Z90.49 Acquired absence of other specified parts of digestive tract; Z95.1 Presence of aortocoronary bypass graft
CPT/HCPCS: 36415; 36416; 71045; 71275; 80048; 80053; 80069; 82553; 83735; 83880; 84484; 85025; 93005; 94640; 96365; 96366; 96367; J1650; J1956; J2543; J2920; J3480; J7512; J7620; Q9967

== ENCOUNTER 2021-05-27 08:52 | Outpatient (CLI) | payer OTHER | END 2021-05-27 08:53 | disposition home or self-care (01) | LOC: NM 08:52 | PROVIDERS: ATTEND Psychiatry & Neurology Neurology | DX: G20 Parkinson's disease (principal) | CPT/HCPCS: 78803; A9584 ==